=== PATIENT | male | born 1945 | race Caucasian/White ===

== ENCOUNTER → 2017-03-23 | Outpatient (CLI) | payer OTHER ==
[2014-11-12 12:05] VITALS: BP 189/90
--- NOTE | 2017-03-23 13:11 | MRI ---
MRI BRAIN WITHOUT CONTRAST CLINICAL HISTORY: 71-year-old male with unspecified head injury, headache, dizziness and blurred vis ion. COMPARISON: CT head November 12, 2014.. TECHNIQUE: Multiplanar, multisequence MR images of the brain were obtained without contrast. FINDINGS: There is no evidence of diffusion restriction. The craniocervical junction is normal. Pitu itary and optic nerve complex are normal. Multifocal punctate T2 FLAIR signal hyperintensities are p resent within the periventricular and supraventricular white matter that are nonspecific in appearan ce but most likely to represent microvascular white matter ischemic changes. Superimposed upon chron ic microvascular white matter ischemic disease are multiple punctate infarctions involving the right benitez radiata, frontal and parietal lobes within right SYDNEE/MCA distribution with associated macro cystic encephalomalacia and surrounding gliosis. The major vascular flow voids, to include the dural venous sinuses, are intact. The ventricular system is normal in size and morphology. The basilar ci sterns are normal. The orbits and globes are within normal limits. The paranasal sinuses, tympanic cavities and mastoid s are clear. IMPRESSION: 1. No acute ischemic or hemorrhagic insult. 2. Multifocal punctate infarctions with macro cystic encephalomalacia and surrounding gliosis within the right SYDNEE/MCA distribution as described. 3. Chronic microvascular white matter ischemic disease. Reported By:
--- NOTE | 2017-03-23 13:16 | RAD ---
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 No acute fracture or dislocation is seen. No evidence of marginal bony erosions identified. A koko l radial carpal anatomic alignment is seen. There is arterial vascular calcification present. IMPRESSION: Negative for acute abnormality. Reported By:
== END ==
LOC: RAD 12:05
PROVIDERS: ATTEND Nurse Practitioner Family
DX: R42 Dizziness and giddiness (principal); S09.8XXA Other specified injuries of head, initial encounter; X58.XXXA Exposure to other specified factors, initial encounter; M79.642 Pain in left hand
CPT/HCPCS: 70551; 73130

== ENCOUNTER 2017-07-29 11:52 | Inpatient (IN) | payer MEDICAID, OTHER ==
--- NOTE | 2017-07-29 12:03 | DR.GENAD ---
HPI - PCP Primary Care Physician: MARTHA - Complaint/Symptoms Chief Complaint:: PT C/O BEING SICK FOR SEVERAL WEEKS. PT'S HIS SICKNESS STARTED OUT WITH A HIGH FEVER (102.2). PT HAS BEEN HAVING DECREASED INTAKE AND DIZZINESS. - Nurses notes reviewed Nurses Notes Review: Yes - Source History Provided: Patient - Mode of Arrival Mode of Arrival: Ambulatory - Timing Onset of Chief Complaint: 07/15/17 Came on: Gradually - Duration Duration: Constant Duration: Weeks - Severity Severity: Moderate PMH - PMH Past Medical History: Yes Past Medical History: Coronary Artery Disease, CVA, Diabetes, Hypertension Past Surgical History: Yes Surgical History: CABG/Valve Surgery - Family History History of Family Medical Conditions: No - Social History Does any household member use tobacco: Yes Alcohol Use: None Do you use any recreational Drugs:: No Lives With: Family Lives Where: Home - infectious screening In the last 2 months have you had wt loss of >10#?: NO Have you had fever, night sweats or hemotysis?: No Have you traveled outside the country in the last 6 months?: No Isolation: Standard ROS - Review of Systems Constitutional: Fever, Weakness, Fatigue. negative: Chills Eyes: No Symptoms Reported. negative: Eye Pain, Discharge ENTM: No Symptoms Reported. negative: Ear Pain, Nose Discharge, Nose Congestion , Throat Pain Respiratoy: Non-Productive Cough, Short of Breath, Wheezing. negative: Productive Cough, Hemoptysis Cardiovascular: Chest Pain Gastrointestinal/Abdominal: Abdominal Pain, Nausea. negative: Constipation, Diarrhea, Vomiting, Food Intolerance Genitourinary: Other (DECREASE URINE OUTPUT.). negative: Dysuria, Frequency, Hematuria Neurological: Headache, Weakness, Dizziness Musculoskeletal: Back Pain, Muscle Pain Integumentary: No Symptoms Reported Hematologic/Lymphatic: No Symptoms Reported Endocrine: No Symptoms Reported, Increased Thirst All Other Systems: Reviewed and Negative PE - Vital Signs Vitals: Temperature 97.5 F Pulse Rate 85 Respiratory Rate 18 Blood Pressure [Right Arm] 189/90 Blood Pressure 97/57 O2 Sat by Pulse Oximetry 92 - General Limitations: No Limitations General Appearance: Alert - Head Head Exam: Normal Inspection - Eyes Eye exam: Normal Appearance, PERRL - ENT ENT Exam: Normal External Ear Exam External Ear Exam: Normal External Inspection TM/Canal Exam: Bilateral Normal Nose Exam: Normal Nose Exam Mouth Exam: Normal Inspection Throat Exam: Normal Inspection - Neck Neck Exam: Trachea Midline - Chest Chest Inspection: Symmetric Chest Wall Rise - Respiratory Respiratory Exam: Normal Lung Sounds Bilat Respiratory Exam: Bilateral Clear to Auscultation - Cardiovascular Cardiovascular Exam: Regular Rate, Normal Rhythm, Normal Heart Sounds - Abdominal Exam Abdominal Exam: Normal Bowel Sounds, Soft. negative: Tenderness - Extremities Extremities Exam: Normal Inspection, Tenderness - Back Back Exam: Normal Inspection - Neurologic Neurological Exam: Alert, Oriented X3 - Psychiatric Psychiatric Exam: Normal Affect, Normal Mood - Skin Skin Exam: Normal Color MDM - Additional Information Additional Information Obtained From: Family - Differential Diagnosis Differential Diagnosis: ORTHOSTATIC HYPOTENSION, SEVERE DEHYDRATION, HYPONATEMIA , HYPOGLYCEMIA Course - Treatment Treatment: SEE ORDERS. - Consultation Consultation Comments: DISCUSS PATIENT WITH DR. SUNG. HE WILL ADMIT PATIENT. - Education/Counseling Education/Counseling: Patient, Family, Education Educated On: Treatment, Diagnosis, Needs for Follow Up ROR - Labs Reviewed Laboratory Results Reviewed?: Yes Result Diagrams: 07/30/17 03:30 07/30/17 03:30 Laboratory: WBC 5.9 X10^3/uL (3.6-10.0) 07/29/17 12:30 RBC 3.59 X10^6/uL (4.7-6.0) L 07/29/17 12:30 Hgb 10.8 g/dL (13.5-18.0) L 07/29/17 12:30 Hct 31.6 % (42.0-54.0) L 07/29/17 12:30 MCV 88.1 fL (80.0-100.0) 07/29/17 12:30 MCH 30.0 pg (27.0-34.0) 07/29/17 12:30 MCHC 34.1 g/dL (33.0-35.0) 07/29/17 12:30 RDW 15.0 % (11.6-16.5) 07/29/17 12:30 Plt Count 228 X10^3/uL (150.0-450.0) 07/29/17 12:30 MPV 9.7 fL (7.4-11.0) 07/29/17 12:30 Neut % 79.9 % (42.0-75.0) H 07/29/17 12:30 Lymph % 7.4 % (21.0-51.0) L 07/29/17 12:30 [place] % 10.4 % (0.0-13.0) 07/29/17 12:30 Eos % 1.9 % (0.9-2.9) 07/29/17 12:30 Baso % 0.4 % (0.2-1.0) 07/29/17 12:30 Neut # 4.7 x10^3/uL (2.2-4.8) 07/29/17 12:30 Lymph # 0.4 X10^3/uL (1.3-2.9) L 07/29/17 12:30 [place] # 0.6 x10^3/uL (0.3-0.8) 07/29/17 12:30 Eos # 0.1 x10^3/uL (0.0-0.2) 07/29/17 12:30 Baso # 0.0 X10^3/uL (0.0-0.1) 07/29/17 12:30 Absolute Nucleated RBC 0.0 /100WBC 07/29/17 12:30 Sodium 129 mmol/L (136-145) L 07/29/17 12:30 Corrected Sodium TNP 07/29/17 12:30 Potassium 4.1 mmol/L (3.5-5.1) 07/29/17 12:30 Chloride 92 mmol/L (98-107) L 07/29/17 12:30 Carbon Dioxide 23.6 mmol/L (21-32) 07/29/17 12:30 BUN 34 mg/dL (7-18) H 07/29/17 12:30 Creatinine 6.49 mg/dL (0.70-1.30) H 07/29/17 12:30 Est GFR (MDRD) Af Amer 11 (>60) L 07/29/17 12:30 Est GFR (MDRD) Non-Af 9 (>60) L 07/29/17 12:30 Glucose 59 mg/dL (65-99) L 07/29/17 12:30 Lactic Acid 2.6 mmol/L (0.4-2.0) H 07/29/17 12:30 Calcium 9.2 mg/dL (8.5-10.1) 07/29/17 12:30 Corrected Calcium 10.1 mg/dL (8.5-10.1) 07/29/17 12:30 Total Bilirubin 0.80 mg/dL (0.2-1.0) 07/29/17 12:30 AST 32 Units/L (15-37) 07/29/17 12:30 ALT 24 Units/L (12-78) 07/29/17 12:30 Alkaline Phosphatase 61 Units/L (46-116) 07/29/17 12:30 Creatine Kinase 40 Units/L (39-308) 07/29/17 12:30 CK-MB (CK-2) < 1.0 ng/mL (0-4.0) 07/29/17 12:30 CK/CKMB % Calc 2.5 % (<4) 07/29/17 12:30 Troponin I < 0.02 ng/mL (0-1.5) 07/29/17 12:30 Total Protein 7.1 g/dL (6.4-8.2) 07/29/17 12:30 Albumin 2.9 g/dL (3.4-5.0) L 07/29/17 12:30 Globulin 4.2 g/dL (2.5-4.5) 07/29/17 12:30 Albumin/Globulin Ratio 0.7 Ratio (1.1-2.1) L 07/29/17 12:30 Acetone, Semi-Quant Negative (NEGATIVE) 07/29/17 12:31 - XRAY XRAY Interpreted by: Radiologist XRAY Findings: REPORT DISCUSS WITH PATIENT AND HIS . - EKG Rhythm: NSR (EKG NOTED) - Diagnosis Discharge Problem: Hyponatremia, Orthostatic hypotension, Hypoglycemia, Generalized weakness Acute kidney failure Qualifiers: Acute renal failure type: unspecified Qualified Code(s): N17.9 - Acute kidney failure, unspecified - Discharge Plan Disposition: ADMITTED INPATIENT Condition: Stable - Follow ups/Referrals - Instructions
[2017-07-29 12:45] LABS: BASOPHILS % (AUTO) 0.4 % (0.2-1.0); EOSINOPHILS # (AUTO) 0.1 x10^3/uL (0.0-0.2); EOSINOPHILS % (AUTO) 1.9 % (0.9-2.9); HEMATOCRIT 31.6 % (42.0-54.0); HEMOGLOBIN 10.8 g/dL (13.5-18.0); LYMPHOCYTES # (AUTO) 0.4 X10^3/uL (1.3-2.9); LYMPHOCYTES % (AUTO) 7.4 % (21.0-51.0); MEAN CORPUSCULAR HGB CONC 34.1 g/dL (33.0-35.0); MEAN CORPUSCULAR VOLUME 88.1 fL (80.0-100.0); MEAN PLATELET VOLUME 9.7 fL (7.4-11.0); MONOCYTES # (AUTO) 0.6 x10^3/uL (0.3-0.8); MONOCYTES % (AUTO) 10.4 % (0.0-13.0); NEUTROPHILS # (AUTO) 4.7 x10^3/uL (2.2-4.8); NEUTROPHILS % (AUTO) 79.9 % (42.0-75.0); PLATELET COUNT 228 X10^3/uL (150.0-450.0); RED BLOOD COUNT 3.59 X10^6/uL (4.7-6.0); WHITE BLOOD COUNT 5.9 X10^3/uL (3.6-10.0)
[2017-07-29 13:00] LABS: BLOOD UREA NITROGEN 34 mg/dL (7-18); CALCIUM 9.2 mg/dL (8.5-10.1); CARBON DIOXIDE 23.6 mmol/L (21-32); CHLORIDE 92 mmol/L (98-107); CREATININE 6.49 mg/dL (0.70-1.30); SODIUM 129 mmol/L (136-145); TROPONIN I < 0.02 ng/mL (0-1.5); eGFR BLACK RACES 11 (>60); eGFR NON BLACK RACES 9 (>60)
[2017-07-29 13:01] LABS: LACTIC ACID 2.6 mmol/L (0.4-2.0)
[2017-07-29 13:05] LABS: ALANINE AMINOTRANSFERASE 24 Units/L (12-78); ALBUMIN 2.9 g/dL (3.4-5.0); ALKALINE PHOSPHATASE 61 Units/L (46-116); ASPARTATE AMINO TRANSFERASE 32 Units/L (15-37); COR CA(FOR HYPOALB) 10.1 mg/dL (8.5-10.1); CREATINE KINASE 40 Units/L (39-308); CREATINE KINASE MB < 1.0 ng/mL (0-4.0); TOTAL PROTEIN 7.1 g/dL (6.4-8.2)
[2017-07-29] MEDS ORDERED: NS 1000 ML 1,000 ML IV ONE (13:07)
[2017-07-29 13:08] LABS: CKMB % 2.5 % (<4)
[2017-07-29] MEDS ORDERED: NS 1000 ML 1,000 ML ONE ×3 (13:20→23:16)
[2017-07-29] MEDS ORDERED: D50W ABBOJECT SYR ONE (14:00)
[2017-07-29] MEDS ORDERED: D50W ABBOJECT SYR IV ONE (15:03)
--- NOTE | 2017-07-29 16:48 | RAD ---
HISTORY: Fever Study: Single view chest Comparison: 06/30/2011 Findings: Single portable view is submitted. There are chronic sternotomy changes noted. The lungs are clear wi thout consolidation, effusion or pneumothorax. The cardiac and mediastinal contours are within normal limits. The soft tissues are unremarkable. IMPRESSION: 1. No acute cardiopulmonary abnormality. Reported By:
[2017-07-29 17:23] LABS: CREATINE KINASE 33 Units/L (39-308); CREATINE KINASE MB < 1.0 ng/mL (0-4.0); TROPONIN I < 0.02 ng/mL (0-1.5)
--- NOTE | 2017-07-29 21:10 | DR.H&P ---
H&P - History & Physical for Day of: H&P Date: 07/29/17 - Chief Complaint Chief Complaint: WEAKNESS - Allergies Allergies/Adverse Reactions: Allergies Allergy/AdvReac Type Severity Reaction Status Date / Time MS No Known Drug Allergy Allergy Verified 07/18/12 14:03 [No Known Drug Allergy] - History of Present Illness History of Present Illness: THE PATIENT IS A 72YOWM WHO PRESENTS TO THE ED WITH COMPLAINT OF GENERALIZED WEAKNESS. STATES THAT LAST WEEK HE HAD URI SYMPTOMS WITH A TEMP REACHING 102.2F. STATES THAT HE HAS NOT BEEN VOIDING MUCH. STATES THAT HE FEELS TIRED WITH NO ENERGY. DENIES URI OR FEVER NOW. DENIES N/V/D. - Past Medical History Past Medical History: Coronary Artery Disease, CVA, Diabetes, Hypertension - Past Surgical History Surgical History: CABG/Valve Surgery - Social History Does patient currently use any type of tobacco product: No Have you used tobacco products in the last 12 months: No Type of Tobacco Use: None Does any household member use tobacco: Yes Alcohol Use: None Drug Use: None - Review of Systems Constitutional: Fever, Weakness, Malaise Eyes: No Symptoms Reported ENT: No Symptoms Reported Respiratory: No Symptoms Reported Cardiovascular: No Symptoms Reported Gastrointestinal: No Symptoms Reported Genitourinary: Dysuria Musculoskeletal: No Symptoms Reported Skin: No Symptoms Reported Neurological: No Symptoms Reported - Physical Exam Vital Signs: Temperature 97.5 F Pulse Rate 85 Respiratory Rate 18 Blood Pressure [Right Arm] 189/90 Blood Pressure 97/57 O2 Sat by Pulse Oximetry 92 Oriented: Normal Eyes: Normal Ear: Normal Nose: Normal Throat: Normal Respiratory: Clear Throughout Cardiovascular: Normal : Normal Auscultation: Bowel Sounds: Normal Palpation: Normal Tenderness: Normal Skin: Normal Musculoskeletal: Normal Psychiatric: Normal Mood Description: Calm Affect: Normal Speech Pattern: Clear - Assessment/Plan (1) Acute kidney failure Status: Acute Plan: IV HYDRATION. MONITOR BMP. RENAL ULTRASOUND (2) Diabetes mellitus Qualifiers: Diabetes mellitus type: type 2 Status: Acute Plan: FSBS CHECKS WITH SSRI COVERAGE. (3) Hyponatremia Status: Acute Plan: IV HYDRATION (4) Hypertension Qualifiers: Hypertension type: essential hypertension Qualified Code(s): I10 - Essential (primary) hypertension Status: Acute Plan: MONITOR BP. ADMINISTER ANTI-HYPERTENSIVES.
[2017-07-29] MEDS ORDERED: HumuLIN R SUBCUT PRN (21:26)
[2017-07-29] MEDS: FLOMAX PO SCH (21:40)
[2017-07-29 23:27] LABS: CKMB % 2.7 % (<4); CREATINE KINASE 37 Units/L (39-308); CREATINE KINASE MB < 1.0 ng/mL (0-4.0); TROPONIN I 0.02 ng/mL (0-1.5)
[2017-07-29] MEDS: NS 1000 ML 1,000 ML IV SCH (23:40)
[2017-07-30 05:15] LABS: BILIRUBIN,URINE NEGATIVE (NEGATIVE); BLOOD/HEMOGLOBIN,URINE 2+ (NEGATIVE); GLUCOSE, URINE NEGATIVE (NEGATIVE); KETONES,URINE NEGATIVE (NEGATIVE); LEUKOCYTE ESTERASE ,URINE NEGATIVE (NEGATIVE); NITRITES,URINE NEGATIVE (NEGATIVE); PROTEIN,URINE 2+ (NEGATIVE); UROBILINOGEN,URINE NORMAL (NORMAL)
[2017-07-30 05:18] LABS: BASOPHILS % (AUTO) 0.4 % (0.2-1.0); EOSINOPHILS # (AUTO) 0.1 x10^3/uL (0.0-0.2); HEMATOCRIT 26.5 % (42.0-54.0); HEMOGLOBIN 9.2 g/dL (13.5-18.0); LYMPHOCYTES # (AUTO) 0.3 X10^3/uL (1.3-2.9); MEAN CORPUSCULAR HEMOGLOBIN 30.3 pg (27.0-34.0); MEAN CORPUSCULAR HGB CONC 34.7 g/dL (33.0-35.0); MEAN CORPUSCULAR VOLUME 87.3 fL (80.0-100.0); MEAN PLATELET VOLUME 9.9 fL (7.4-11.0); MONOCYTES # (AUTO) 0.6 x10^3/uL (0.3-0.8); MONOCYTES % (AUTO) 11.9 % (0.0-13.0); NEUTROPHILS # (AUTO) 3.8 x10^3/uL (2.2-4.8); NEUTROPHILS % (AUTO) 78.7 % (42.0-75.0); PLATELET COUNT 194 X10^3/uL (150.0-450.0); RED BLOOD COUNT 3.03 X10^6/uL (4.7-6.0); RED CELL DISTRIBUTION WIDTH 14.9 % (11.6-16.5); WHITE BLOOD COUNT 4.8 X10^3/uL (3.6-10.0)
[2017-07-30 05:27] LABS: APPEARANCE,URINE CLEAR (CLEAR); BACTERIA,URINE TRACE /HPF (NEGATIVE); COLOR,URINE YELLOW (YELLOW); RBC,URINE 0-3 /HPF (NEGATIVE); SQUAMOUS EPITHELIAL CELL,UR RARE /HPF (NEGATIVE)
[2017-07-30 05:38] LABS: ALANINE AMINOTRANSFERASE 19 Units/L (12-78); ALBUMIN 2.2 g/dL (3.4-5.0); ALKALINE PHOSPHATASE 49 Units/L (46-116); ASPARTATE AMINO TRANSFERASE 31 Units/L (15-37); BLOOD UREA NITROGEN 36 mg/dL (7-18); CALCIUM 8.4 mg/dL (8.5-10.1); CARBON DIOXIDE 19.7 mmol/L (21-32); CHLORIDE 98 mmol/L (98-107); COR CA(FOR HYPOALB) 9.8 mg/dL (8.5-10.1); CREATININE 7.02 mg/dL (0.70-1.30); SODIUM 131 mmol/L (136-145); TOTAL PROTEIN 5.7 g/dL (6.4-8.2); eGFR BLACK RACES 10 (>60); eGFR NON BLACK RACES 8 (>60)
[2017-07-30] MEDS: NS 1000 ML 1,000 ML IV SCH ×2 (06:00→14:48)
[2017-07-30 09:55] LABS: AMYLASE 72 Units/L (25-115); LIPASE 93 Units/L (73-393)
[2017-07-30] MEDS: MAALOX or MYLANTA PO PRN (11:16)
[2017-07-30] MEDS ORDERED: CONSULT PHARMACY - ANTIBIOTIC XX SCH (13:00)
[2017-07-30 13:07] VITALS: BMI 26.7
[2017-07-30] MEDS ORDERED: XOPENEX 1.25 MG/3 ML NEBULE NEB ONE (13:13)
[2017-07-30] MEDS ORDERED: SALINE 3% 15 ML NEB TX ONE (13:14)
[2017-07-30] MEDS: XOPENEX 1.25 MG/3 ML NEBULE NEB SCH ×3 (13:15→20:36)
[2017-07-30] MEDS ORDERED: SALINE 3% 15 ML NEB TX NEB ONE (13:28)
[2017-07-30] MEDS ORDERED: LEVAQUIN PREMIX IV 500 MG 500 MG/100 ML BAG IV SCH (14:00)
[2017-07-30] MEDS ORDERED: NS 250 ML IV 250 ML IV ONE (14:09)
[2017-07-30] MEDS: ZOSYN VIAL 2.25 GM 2.25 GM in NS 100 ML IV + SPIKE MINIBAG* 100 ML IV SCH ×2 (14:19→22:19)
[2017-07-30] MEDS ORDERED: DULCOLAX SUPPOSITORY 10 MG RECTAL SCH (16:00)
[2017-07-30] MEDS: COLACE CAP 100 MG PO SCH ×2 (16:51→22:18)
[2017-07-30] MEDS: SNACK - Diabetic Appropriate PO SCH (21:15)
[2017-07-30] MEDS: FLOMAX PO SCH (22:19)
[2017-07-30] MEDS: MILK OF MAGNESIA PO SCH (22:20)
[2017-07-31] MEDS: NS 1000 ML 1,000 ML IV SCH ×2 (01:19→09:35)
[2017-07-31 05:23] LABS: BASOPHILS % (AUTO) 0.7 % (0.2-1.0); EOSINOPHILS # (AUTO) 0.1 x10^3/uL (0.0-0.2); EOSINOPHILS % (AUTO) 1.3 % (0.9-2.9); HEMATOCRIT 25.6 % (42.0-54.0); HEMOGLOBIN 8.7 g/dL (13.5-18.0); LYMPHOCYTES # (AUTO) 0.4 X10^3/uL (1.3-2.9); LYMPHOCYTES % (AUTO) 8.9 % (21.0-51.0); MEAN CORPUSCULAR HEMOGLOBIN 29.8 pg (27.0-34.0); MEAN CORPUSCULAR HGB CONC 34.2 g/dL (33.0-35.0); MEAN CORPUSCULAR VOLUME 87.4 fL (80.0-100.0); MONOCYTES # (AUTO) 0.6 x10^3/uL (0.3-0.8); MONOCYTES % (AUTO) 13.9 % (0.0-13.0); NEUTROPHILS # (AUTO) 3.2 x10^3/uL (2.2-4.8); NEUTROPHILS % (AUTO) 75.2 % (42.0-75.0); PLATELET COUNT 188 X10^3/uL (150.0-450.0); RED BLOOD COUNT 2.93 X10^6/uL (4.7-6.0); RED CELL DISTRIBUTION WIDTH 14.7 % (11.6-16.5); WHITE BLOOD COUNT 4.3 X10^3/uL (3.6-10.0)
[2017-07-31 05:30] LABS: ALANINE AMINOTRANSFERASE 16 Units/L (12-78); ALBUMIN 2.1 g/dL (3.4-5.0); ALKALINE PHOSPHATASE 48 Units/L (46-116); ASPARTATE AMINO TRANSFERASE 26 Units/L (15-37); BLOOD UREA NITROGEN 42 mg/dL (7-18); CALCIUM 8.2 mg/dL (8.5-10.1); CHLORIDE 100 mmol/L (98-107); COR CA(FOR HYPOALB) 9.7 mg/dL (8.5-10.1); SODIUM 134 mmol/L (136-145); TOTAL PROTEIN 5.6 g/dL (6.4-8.2); eGFR BLACK RACES 9 (>60); eGFR NON BLACK RACES 7 (>60)
[2017-07-31] MEDS: ZOSYN VIAL 2.25 GM 2.25 GM in NS 100 ML IV + SPIKE MINIBAG* 100 ML IV SCH ×3 (06:05→21:17)
[2017-07-31] MEDS: XOPENEX 1.25 MG/3 ML NEBULE NEB SCH ×4 (09:26→20:54)
[2017-07-31] MEDS: MILK OF MAGNESIA PO SCH ×2 (09:30→20:10)
[2017-07-31] MEDS: MAALOX or MYLANTA PO PRN ×2 (12:15→17:50)
[2017-07-31] MEDS: FLOMAX PO SCH (20:10)
[2017-07-31] MEDS: COLACE CAP 100 MG PO SCH (20:10)
[2017-07-31] MEDS: SNACK - Diabetic Appropriate PO SCH (20:10)
[2017-07-31] MEDS ORDERED: NS 1000 ML 1,000 ML IV PRN (23:40)
[2017-08-01 00:16] LABS: BILIRUBIN,URINE NEGATIVE (NEGATIVE); BLOOD/HEMOGLOBIN,URINE 2+ (NEGATIVE); GLUCOSE, URINE NEGATIVE (NEGATIVE); KETONES,URINE NEGATIVE (NEGATIVE); LEUKOCYTE ESTERASE ,URINE NEGATIVE (NEGATIVE); NITRITES,URINE NEGATIVE (NEGATIVE); PH,URINE 6.5 (5.0 - 8.0); PROTEIN,URINE 1+ (NEGATIVE); UROBILINOGEN,URINE NORMAL (NORMAL)
[2017-08-01 00:22] LABS: APPEARANCE,URINE CLEAR (CLEAR); BACTERIA,URINE NEGATIVE /HPF (NEGATIVE); COLOR,URINE PALE YELLOW (YELLOW); RBC,URINE 0-2 /HPF (NEGATIVE); SQUAMOUS EPITHELIAL CELL,UR RARE /HPF (NEGATIVE)
[2017-08-01 05:16] LABS: BASOPHILS # (AUTO) 0.1 X10^3/uL (0.0-0.1); BASOPHILS % (AUTO) 1.4 % (0.2-1.0); EOSINOPHILS # (AUTO) 0.1 x10^3/uL (0.0-0.2); EOSINOPHILS % (AUTO) 2.8 % (0.9-2.9); HEMATOCRIT 25.4 % (42.0-54.0); HEMOGLOBIN 8.5 g/dL (13.5-18.0); LYMPHOCYTES # (AUTO) 0.5 X10^3/uL (1.3-2.9); MEAN CORPUSCULAR HGB CONC 33.6 g/dL (33.0-35.0); MEAN CORPUSCULAR VOLUME 89.2 fL (80.0-100.0); MEAN PLATELET VOLUME 9.9 fL (7.4-11.0); MONOCYTES # (AUTO) 0.7 x10^3/uL (0.3-0.8); NEUTROPHILS # (AUTO) 2.8 x10^3/uL (2.2-4.8); NEUTROPHILS % (AUTO) 65.8 % (42.0-75.0); PLATELET COUNT 199 X10^3/uL (150.0-450.0); RED BLOOD COUNT 2.85 X10^6/uL (4.7-6.0); RED CELL DISTRIBUTION WIDTH 15.1 % (11.6-16.5); WHITE BLOOD COUNT 4.2 X10^3/uL (3.6-10.0)
[2017-08-01 05:31] LABS: ALANINE AMINOTRANSFERASE 14 Units/L (12-78); ALBUMIN 2.1 g/dL (3.4-5.0); ALKALINE PHOSPHATASE 45 Units/L (46-116); ASPARTATE AMINO TRANSFERASE 24 Units/L (15-37); BLOOD UREA NITROGEN 46 mg/dL (7-18); CALCIUM 8.3 mg/dL (8.5-10.1); CARBON DIOXIDE 22.5 mmol/L (21-32); CHLORIDE 104 mmol/L (98-107); COR CA(FOR HYPOALB) 9.8 mg/dL (8.5-10.1); CREATININE 7.96 mg/dL (0.70-1.30); SODIUM 135 mmol/L (136-145); TOTAL PROTEIN 5.6 g/dL (6.4-8.2); eGFR BLACK RACES 9 (>60); eGFR NON BLACK RACES 7 (>60)
[2017-08-01 08:27] LABS: ALBUMIN 2.1 g/dL (3.4-5.0); BLOOD UREA NITROGEN 47 mg/dL (7-18); CALCIUM 8.2 mg/dL (8.5-10.1); CARBON DIOXIDE 21.4 mmol/L (21-32); CHLORIDE 103 mmol/L (98-107); COR CA(FOR HYPOALB) 9.7 mg/dL (8.5-10.1); CREATININE 8.07 mg/dL (0.70-1.30); PHOSPHORUS 4.2 mg/dL (2.6-4.7); SODIUM 132 mmol/L (136-145); eGFR BLACK RACES 8 (>60); eGFR NON BLACK RACES 7 (>60)
[2017-08-01] MEDS: SYNTHROID 100 mcg TAB PO SCH (08:53)
[2017-08-01] MEDS: PriLOSEC PO SCH (08:53)
[2017-08-01] MEDS: MILK OF MAGNESIA PO SCH ×3 (08:54→20:45)
[2017-08-01] MEDS: XOPENEX 1.25 MG/3 ML NEBULE NEB SCH ×4 (09:11→20:43)
[2017-08-01 10:53] LABS: CALCIUM 8.2 mg/dL (8.5-10.1); CARBON DIOXIDE 24.5 mmol/L (21-32); CREATININE 7.72 mg/dL (0.70-1.30)
[2017-08-01] MEDS: MAALOX or MYLANTA PO PRN (15:00)
[2017-08-01] MEDS: NS 1000 ML 1,000 ML IV PRN (19:00)
[2017-08-01 20:18] LABS: BLOOD UREA NITROGEN 43 mg/dL (7-18); CALCIUM 8.2 mg/dL (8.5-10.1); CHLORIDE 102 mmol/L (98-107); CREATININE 7.47 mg/dL (0.70-1.30); SODIUM 134 mmol/L (136-145); eGFR BLACK RACES 9 (>60); eGFR NON BLACK RACES 8 (>60)
[2017-08-01] MEDS: SNACK - Diabetic Appropriate PO SCH (20:45)
[2017-08-01] MEDS: COLACE CAP 100 MG PO SCH (20:45)
[2017-08-01] MEDS: FLOMAX PO SCH (20:45)
[2017-08-02 05:17] LABS: BASOPHILS % (AUTO) 1.2 % (0.2-1.0); EOSINOPHILS # (AUTO) 0.2 x10^3/uL (0.0-0.2); HEMATOCRIT 24.8 % (42.0-54.0); HEMOGLOBIN 8.4 g/dL (13.5-18.0); LYMPHOCYTES # (AUTO) 0.5 X10^3/uL (1.3-2.9); LYMPHOCYTES % (AUTO) 13.7 % (21.0-51.0); MEAN CORPUSCULAR HEMOGLOBIN 29.9 pg (27.0-34.0); MEAN CORPUSCULAR HGB CONC 33.8 g/dL (33.0-35.0); MEAN CORPUSCULAR VOLUME 88.5 fL (80.0-100.0); MEAN PLATELET VOLUME 9.6 fL (7.4-11.0); MONOCYTES # (AUTO) 0.6 x10^3/uL (0.3-0.8); MONOCYTES % (AUTO) 16.8 % (0.0-13.0); NEUTROPHILS # (AUTO) 2.4 x10^3/uL (2.2-4.8); NEUTROPHILS % (AUTO) 62.3 % (42.0-75.0); PLATELET COUNT 199 X10^3/uL (150.0-450.0); RED BLOOD COUNT 2.81 X10^6/uL (4.7-6.0); RED CELL DISTRIBUTION WIDTH 15.2 % (11.6-16.5); WHITE BLOOD COUNT 3.8 X10^3/uL (3.6-10.0)
[2017-08-02 05:27] LABS: ALANINE AMINOTRANSFERASE 17 Units/L (12-78); ALKALINE PHOSPHATASE 49 Units/L (46-116); ASPARTATE AMINO TRANSFERASE 25 Units/L (15-37); BLOOD UREA NITROGEN 44 mg/dL (7-18); CALCIUM 8.3 mg/dL (8.5-10.1); CHLORIDE 104 mmol/L (98-107); COR CA(FOR HYPOALB) 9.9 mg/dL (8.5-10.1); CREATININE 7.22 mg/dL (0.70-1.30); SODIUM 135 mmol/L (136-145); TOTAL PROTEIN 5.5 g/dL (6.4-8.2); eGFR BLACK RACES 10 (>60); eGFR NON BLACK RACES 8 (>60)
[2017-08-02] MEDS: NS 1000 ML 1,000 ML IV PRN (05:41)
[2017-08-02] MEDS: XOPENEX 1.25 MG/3 ML NEBULE NEB SCH ×5 (08:40→20:02)
[2017-08-02] MEDS: SYNTHROID 100 mcg TAB PO SCH (09:46)
[2017-08-02] MEDS: PriLOSEC PO SCH (09:46)
[2017-08-02] MEDS: MILK OF MAGNESIA PO SCH ×2 (09:47→21:15)
[2017-08-02 16:19] LABS: CALCIUM 8.6 mg/dL (8.5-10.1); CARBON DIOXIDE 22.5 mmol/L (21-32); CREATININE 6.93 mg/dL (0.70-1.30)
[2017-08-02] MEDS: SNACK - Diabetic Appropriate PO SCH (21:13)
[2017-08-02] MEDS: COLACE CAP 100 MG PO SCH (21:14)
[2017-08-02] MEDS: FLOMAX PO SCH (21:14)
[2017-08-02] MEDS: PEPCID 20 MG IV PREMIX* 20 MG/50 ML BAG IV SCH (21:16)
[2017-08-03] MEDS: NS 1000 ML 1,000 ML IV PRN ×2 (01:07→16:25)
[2017-08-03 05:43] LABS: BASOPHILS % (AUTO) 1.4 % (0.2-1.0); EOSINOPHILS # (AUTO) 0.2 x10^3/uL (0.0-0.2); HEMATOCRIT 23.6 % (42.0-54.0); LYMPHOCYTES # (AUTO) 0.5 X10^3/uL (1.3-2.9); LYMPHOCYTES % (AUTO) 15.8 % (21.0-51.0); MEAN CORPUSCULAR HEMOGLOBIN 30.2 pg (27.0-34.0); MEAN CORPUSCULAR HGB CONC 34.1 g/dL (33.0-35.0); MEAN CORPUSCULAR VOLUME 88.6 fL (80.0-100.0); MEAN PLATELET VOLUME 9.6 fL (7.4-11.0); MONOCYTES # (AUTO) 0.5 x10^3/uL (0.3-0.8); MONOCYTES % (AUTO) 16.5 % (0.0-13.0); NEUTROPHILS # (AUTO) 1.9 x10^3/uL (2.2-4.8); NEUTROPHILS % (AUTO) 59.3 % (42.0-75.0); PLATELET COUNT 215 X10^3/uL (150.0-450.0); RED BLOOD COUNT 2.66 X10^6/uL (4.7-6.0); RED CELL DISTRIBUTION WIDTH 15.4 % (11.6-16.5); WHITE BLOOD COUNT 3.2 X10^3/uL (3.6-10.0)
--- NOTE | 2017-08-03 06:08 | RAD ---
HISTORY: Hypertension, coronary artery disease, fever Study: Chest AP portable Comparison: 07/29/2017 Findings: The patient is status post median sternotomy and CABG. The heart is enlarged. No congestive heart nishant lure is noted. The lungs are mildly hyperinflated but free of acute alveolar infiltrates. No pleural effusions are identified. A nodular density projected over the right lung base is likely a nipple sha harvinder. Confirmation with repeat AP upright film with nipple markers is recommended. IMPRESSION: Cardiomegaly without congestive heart failure Hyperinflation Nodular density projected over the right lower lobe is likely a nipple shadow. Repeat AP or PA film w ith nipple markers is recommended for confirmation. Reported By:
[2017-08-03 06:11] LABS: ALANINE AMINOTRANSFERASE 17 Units/L (12-78); ALBUMIN 2.1 g/dL (3.4-5.0); ALKALINE PHOSPHATASE 49 Units/L (46-116); ASPARTATE AMINO TRANSFERASE 25 Units/L (15-37); BLOOD UREA NITROGEN 42 mg/dL (7-18); CALCIUM 8.4 mg/dL (8.5-10.1); CARBON DIOXIDE 23.1 mmol/L (21-32); CHLORIDE 108 mmol/L (98-107); COR CA(FOR HYPOALB) 9.9 mg/dL (8.5-10.1); CREATININE 6.69 mg/dL (0.70-1.30); SODIUM 139 mmol/L (136-145); TOTAL PROTEIN 5.7 g/dL (6.4-8.2); eGFR BLACK RACES 11 (>60); eGFR NON BLACK RACES 9 (>60)
[2017-08-03] MEDS: XOPENEX 1.25 MG/3 ML NEBULE NEB SCH ×3 (09:10→20:34)
[2017-08-03] MEDS: MILK OF MAGNESIA PO SCH ×2 (09:24→21:23)
[2017-08-03] MEDS: PriLOSEC PO SCH (09:24)
[2017-08-03] MEDS: SYNTHROID 100 mcg TAB PO SCH (09:24)
[2017-08-03] MEDS ORDERED: HYDROCORTISONE CRM 1% TOP PRN (09:39)
[2017-08-03] MEDS: NORCO 10/325 TAB PO PRN (21:22)
[2017-08-03] MEDS: COLACE CAP 100 MG PO SCH (21:23)
[2017-08-03] MEDS: FLOMAX PO SCH (21:23)
[2017-08-03] MEDS: SNACK - Diabetic Appropriate PO SCH (21:24)
[2017-08-04] MEDS: NS 1000 ML 1,000 ML IV PRN (05:20)
[2017-08-04 06:04] LABS: BASOPHILS # (AUTO) 0.1 X10^3/uL (0.0-0.1); BASOPHILS % (AUTO) 1.9 % (0.2-1.0); EOSINOPHILS # (AUTO) 0.3 x10^3/uL (0.0-0.2); EOSINOPHILS % (AUTO) 8.3 % (0.9-2.9); HEMATOCRIT 22.9 % (42.0-54.0); HEMOGLOBIN 7.8 g/dL (13.5-18.0); LYMPHOCYTES # (AUTO) 0.6 X10^3/uL (1.3-2.9); LYMPHOCYTES % (AUTO) 19.2 % (21.0-51.0); MEAN CORPUSCULAR HEMOGLOBIN 29.9 pg (27.0-34.0); MEAN CORPUSCULAR VOLUME 88.1 fL (80.0-100.0); MEAN PLATELET VOLUME 9.4 fL (7.4-11.0); MONOCYTES # (AUTO) 0.5 x10^3/uL (0.3-0.8); MONOCYTES % (AUTO) 15.8 % (0.0-13.0); NEUTROPHILS # (AUTO) 1.7 x10^3/uL (2.2-4.8); NEUTROPHILS % (AUTO) 54.8 % (42.0-75.0); PLATELET COUNT 235 X10^3/uL (150.0-450.0); RED BLOOD COUNT 2.61 X10^6/uL (4.7-6.0); WHITE BLOOD COUNT 3.1 X10^3/uL (3.6-10.0)
[2017-08-04 06:30] LABS: ALANINE AMINOTRANSFERASE 19 Units/L (12-78); ALBUMIN 2.2 g/dL (3.4-5.0); ALKALINE PHOSPHATASE 51 Units/L (46-116); ASPARTATE AMINO TRANSFERASE 28 Units/L (15-37); BLOOD UREA NITROGEN 42 mg/dL (7-18); CALCIUM 8.6 mg/dL (8.5-10.1); CHLORIDE 108 mmol/L (98-107); CREATININE 5.78 mg/dL (0.70-1.30); SODIUM 141 mmol/L (136-145); TOTAL PROTEIN 5.9 g/dL (6.4-8.2); eGFR BLACK RACES 12 (>60); eGFR NON BLACK RACES 10 (>60)
[2017-08-04 06:33] LABS: HYPOCHROMASIA 1+; MICROCYTOSIS 1+; PLATELET MORPHOLOGY COMMENT NORMAL (NORMAL); POIKILOCYTOSIS SLIGHT
[2017-08-04] MEDS: SYNTHROID 100 mcg TAB PO SCH (08:06)
[2017-08-04] MEDS: MILK OF MAGNESIA PO SCH ×2 (08:06→20:18)
[2017-08-04] MEDS: PriLOSEC PO SCH (08:06)
[2017-08-04] MEDS: XOPENEX 1.25 MG/3 ML NEBULE NEB SCH ×4 (09:09→20:25)
[2017-08-04] MEDS ORDERED: BENADRYL INJ 50 MG VIAL IVP PRN (13:22)
[2017-08-04] MEDS ORDERED: NS 500 ML IV 500 ML IV ONE (13:22)
[2017-08-04] MEDS ORDERED: TYLENOL 325 MG TAB PO PRN (13:22)
[2017-08-04 14:37] LABS: HEMATOCRIT 24.9 % (42.0-54.0); HEMOGLOBIN 8.4 g/dL (13.5-18.0)
[2017-08-04] MEDS: PROTONIX INJ 40 MG VIAL IVP SCH ×2 (15:39→20:09)
[2017-08-04] MEDS: NS 1000 ML 1,000 ML with SODIUM BICARBONATE 8.4% INJ ADULT 50 ML IV PRN ×2 (18:40)
[2017-08-04 19:22] LABS: HEMATOCRIT 24.2 % (42.0-54.0); HEMOGLOBIN 8.1 g/dL (13.5-18.0)
[2017-08-04] MEDS: COLACE CAP 100 MG PO SCH (20:07)
[2017-08-04] MEDS: FLOMAX PO SCH (20:07)
[2017-08-04] MEDS: SNACK - Diabetic Appropriate PO SCH (20:07)
[2017-08-04] MEDS: PEPCID 20 MG IV PREMIX* 20 MG/50 ML BAG IV SCH (20:09)
[2017-08-04] MEDS: NORCO 10/325 TAB PO PRN (23:42)
[2017-08-05 01:38] LABS: HEMATOCRIT 23.6 % (42.0-54.0); HEMOGLOBIN 7.9 g/dL (13.5-18.0)
[2017-08-05 05:08] LABS: BASOPHILS # (AUTO) 0.1 X10^3/uL (0.0-0.1); BASOPHILS % (AUTO) 1.9 % (0.2-1.0); EOSINOPHILS # (AUTO) 0.2 x10^3/uL (0.0-0.2); EOSINOPHILS % (AUTO) 7.6 % (0.9-2.9); HEMATOCRIT 23.9 % (42.0-54.0); HEMOGLOBIN 8.1 g/dL (13.5-18.0); LYMPHOCYTES # (AUTO) 0.6 X10^3/uL (1.3-2.9); MEAN CORPUSCULAR HEMOGLOBIN 30.1 pg (27.0-34.0); MEAN CORPUSCULAR VOLUME 88.5 fL (80.0-100.0); MONOCYTES # (AUTO) 0.5 x10^3/uL (0.3-0.8); MONOCYTES % (AUTO) 15.1 % (0.0-13.0); NEUTROPHILS # (AUTO) 1.8 x10^3/uL (2.2-4.8); NEUTROPHILS % (AUTO) 56.4 % (42.0-75.0); PLATELET COUNT 247 X10^3/uL (150.0-450.0); RED BLOOD COUNT 2.71 X10^6/uL (4.7-6.0); RED CELL DISTRIBUTION WIDTH 15.4 % (11.6-16.5); WHITE BLOOD COUNT 3.2 X10^3/uL (3.6-10.0)
[2017-08-05 05:24] LABS: ALBUMIN 2.2 g/dL (3.4-5.0); CALCIUM 8.5 mg/dL (8.5-10.1); COR CA(FOR HYPOALB) 9.9 mg/dL (8.5-10.1); CREATININE 5.06 mg/dL (0.70-1.30)
[2017-08-05 05:33] LABS: HYPOCHROMASIA 1+; MICROCYTOSIS 1+; PLATELET MORPHOLOGY COMMENT NORMAL (NORMAL)
--- NOTE | 2017-08-05 07:09 | RAD ---
HISTORY: Shortness of breath Study: Single-view chest Comparison: 07/29/2017 Findings: The trachea is midline. The cardiac silhouette is accentuated by portable technique. Prior changes o f median sternotomy and CABG are noted. The lungs are clear without focal infiltrate or effusion. T he bony thorax is unremarkable. IMPRESSION: 1. No acute cardiopulmonary disease. Reported By:
[2017-08-05] MEDS: MILK OF MAGNESIA PO SCH ×2 (08:17→20:56)
[2017-08-05] MEDS: PROTONIX INJ 40 MG VIAL IVP SCH ×2 (08:18→21:27)
[2017-08-05] MEDS: SYNTHROID 100 mcg TAB PO SCH (08:18)
[2017-08-05] MEDS: XOPENEX 1.25 MG/3 ML NEBULE NEB SCH ×4 (08:44→20:12)
[2017-08-05] MEDS ORDERED: NS 500 ML IV 500 ML IV ONE (14:00)
[2017-08-05] MEDS ORDERED: NS 1000 ML 1,000 ML ONE ×2 (14:43→23:29)
[2017-08-05] MEDS: ALBUMIN HUMAN 25%- 100ML 100 ML IV SCH (15:43)
--- NOTE | 2017-08-05 18:46 | PCM.PROG ---
Progress Note - Progress Note for Day of Date: 08/04/17 ( ) - Subjective Subjective: IS A PATIENT OF . HE WAS ADMITTED FOR SEVERE DEHYDRATION, HYPONATREMIA, AND GENERALIZED WEAKNESS. TODAY, HE IS ALERT AND ORIENTED, SITTING UP IN BED ON MORNING ROUNDS. HE CONTINUES WITH COMPLAINTS OF WEAKNESS AND DIFFUSE ABDOMINAL PAIN. ON EXAMINATION, LUNGS WERE CLEAR TO AUSCULTATION. ABDOMEN SOFT, ROUND, AND NON-TENDER WITH NORMAL BOWEL SOUNDS NOTED IN ALL QUADRANTS. HIS VITAL SIGNS THIS MORNING ARE 98.1-88-93%-20-154/68. LABS WERE OBTAINED. ABNORMAL LAB VALUES INCLUDE THE FOLLOWING: WBC 3.1, RBC 2.61 , HGB 7.8, HCT 22.9, CHLORIDE 108, BUN 42, CREATININE 5.78, TOTAL PROTIEN 5.9, ALBUMIN 2.2. TODAY, WE WILL ADD 1 AMP BICARB TO EACH LITER OF IVF FOR ARF, CHECK A H&H Q6H AND TRANSFUSE 2 UNITS PRBC IF HGB FALLS BELOW 7, AND OBTAIN A CHEST XRAY IN THE MORNING. OTHERWISE, WE PLAN TO FOLLOW UP WITH AM LABS AND CONTINUE TO MONITOR PATIENT. - Past Medical Family Social History Past Med/Fam/Surg Hx: No changes since H&P Allergies: Allergies No Known Drug Allergies Allergy (Verified 07/29/17 21:09) - Review of Systems ROS: No change since H&P - Vital Signs and I&O's Vital Signs: Temperature 98.4 F Pulse Rate [Right Brachial] 74 Pulse Rate [Left Radial] 80 Pulse Rate 71 Respiratory Rate 20 Blood Pressure [Left Arm] 167/7 Blood Pressure [Right Arm] 162/68 Blood Pressure 97/57 O2 Sat by Pulse Oximetry 92 Intake and Output: Intake & Output 08/03/17 08/04/17 08/05/17 08/06/17 11:59 11:59 11:59 11:59 Intake Total 4440 2595 2400 1710 Output Total 3725 3400 7595 1900 Balance 715 -805 -2075 -190 - Physical Exam Oriented: Normal Eyes: Normal Ear: Normal Nose: Normal Throat: Normal Cardiovascular: Normal : Normal Auscultation: Bowel Sounds: Normal Palpation: Normal Tenderness: Diffuse Skin: Normal Musculoskeletal: Normal Psychiatric: Normal Mood Description: Calm Affect: Normal Speech Pattern: Clear, Appropriate - Laboratory and Diagnostics Result Diagrams: 08/05/17 03:45 08/05/17 03:45 Labs: 07/29/17 12:35 Blood Blood Culture - Final 07/29/17 12:30 Blood Blood Culture - Final 07/30/17 14:03 Sputum - Expectorated Sputum Sputum Culture - Final 07/30/17 14:03 Sputum - Expectorated Sputum - Final Laboratory WBC 3.2 X10^3/uL (3.6-10.0) L 08/05/17 03:45 RBC 2.71 X10^6/uL (4.7-6.0) L 08/05/17 03:45 Hgb 8.1 g/dL (13.5-18.0) L 08/05/17 03:45 Hct 23.9 % (42.0-54.0) L 08/05/17 03:45 MCV 88.5 fL (80.0-100.0) 08/05/17 03:45 MCH 30.1 pg (27.0-34.0) 08/05/17 03:45 MCHC 34.0 g/dL (33.0-35.0) 08/05/17 03:45 RDW 15.4 % (11.6-16.5) 08/05/17 03:45 Plt Count 247 X10^3/uL (150.0-450.0) 08/05/17 03:45 Plt Count Comment Adequate (ADEQUATE) 08/05/17 03:45 MPV 9.0 fL (7.4-11.0) 08/05/17 03:45 Neut % 56.4 % (42.0-75.0) 08/05/17 03:45 Lymph % 19.0 % (21.0-51.0) L 08/05/17 03:45 [place] % 15.1 % (0.0-13.0) H 08/05/17 03:45 Eos % 7.6 % (0.9-2.9) H 08/05/17 03:45 Baso % 1.9 % (0.2-1.0) H 08/05/17 03:45 Neut # 1.8 x10^3/uL (2.2-4.8) L 08/05/17 03:45 Lymph # 0.6 X10^3/uL (1.3-2.9) L 08/05/17 03:45 [place] # 0.5 x10^3/uL (0.3-0.8) 08/05/17 03:45 Eos # 0.2 x10^3/uL (0.0-0.2) 08/05/17 03:45 Baso # 0.1 X10^3/uL (0.0-0.1) 08/05/17 03:45 Absolute Nucleated RBC 0.1 /100WBC 08/05/17 03:45 Plt Morphology Comment Normal (NORMAL) 08/05/17 03:45 RBC Morphology Abnormal (NORMAL) 08/05/17 03:45 Hypochromasia 1+ A 08/05/17 03:45 Poikilocytosis Slight A 08/04/17 03:30 Microcytosis 1+ A 08/05/17 03:45 Sodium 141 mmol/L (136-145) 08/05/17 03:45 Corrected Sodium 141 mmol/L (136-145) 08/05/17 03:45 Potassium 4.8 mmol/L (3.5-5.1) 08/05/17 03:45 Chloride 108 mmol/L (98-107) H 08/05/17 03:45 Carbon Dioxide 24.0 mmol/L (21-32) 08/05/17 03:45 BUN 42 mg/dL (7-18) H 08/05/17 03:45 Creatinine 5.06 mg/dL (0.70-1.30) H 08/05/17 03:45 Est GFR (MDRD) Af Amer 15 (>60) L 08/05/17 03:45 Est GFR (MDRD) Non-Af 12 (>60) L 08/05/17 03:45 Glucose 119 mg/dL (65-99) H 08/05/17 03:45 POC Glucose (mg/dL) 113 mg/dL (65-99) H 08/05/17 17:00 Lactic Acid 2.6 mmol/L (0.4-2.0) H 07/29/17 12:30 Uric Acid 7.9 mg/dL (3.5-7.2) H 08/01/17 03:50 Calcium 8.5 mg/dL (8.5-10.1) 08/05/17 03:45 Corrected Calcium 9.9 mg/dL (8.5-10.1) 08/05/17 03:45 Phosphorus 4.2 mg/dL (2.6-4.7) 08/01/17 03:50 Total Bilirubin 0.40 mg/dL (0.2-1.0) 08/05/17 03:45 AST 27 Units/L (15-37) 08/05/17 03:45 ALT 22 Units/L (12-78) 08/05/17 03:45 Alkaline Phosphatase 51 Units/L (46-116) 08/05/17 03:45 Creatine Kinase 37 Units/L (39-308) L 07/29/17 22:55 CK-MB (CK-2) < 1.0 ng/mL (0-4.0) 07/29/17 22:55 CK/CKMB % Calc 2.7 % (<4) 07/29/17 22:55 Troponin I 0.02 ng/mL (0-1.5) 07/29/17 22:55 Total Protein 6.0 g/dL (6.4-8.2) L 08/05/17 03:45 Albumin 2.2 g/dL (3.4-5.0) L 08/05/17 03:45 Globulin 3.8 g/dL (2.5-4.5) 08/05/17 03:45 Albumin/Globulin Ratio 0.6 Ratio (1.1-2.1) L 08/05/17 03:45 Prealbumin 14.1 mg/dL (18-35.7) L 07/30/17 03:30 Amylase 72 Units/L (25-115) 07/30/17 03:30 Lipase 93 Units/L (73-393) 07/30/17 03:30 Specimen Type Catherized urine 07/31/17 23:58 Urine Color Pale yellow (YELLOW) 07/31/17 23:58 Urine Appearance Clear (CLEAR) 07/31/17 23:58 Urine pH 6.5 (5.0 - 8.0) 07/31/17 23:58 Ur Specific [place] 1.010 (1.000-1.030) 07/31/17 23:58 Urine Protein 1+ (NEGATIVE) 07/31/17 23:58 Urine Glucose (UA) Negative (NEGATIVE) 07/31/17 23:58 Urine Ketones Negative (NEGATIVE) 07/31/17 23:58 Urine Occult Blood 2+ (NEGATIVE) 07/31/17 23:58 Urine Nitrite Negative (NEGATIVE) 07/31/17 23:58 Urine Bilirubin Negative (NEGATIVE) 07/31/17 23:58 Urine Urobilinogen Normal (NORMAL) 07/31/17 23:58 Ur Leukocyte Esterase Negative (NEGATIVE) 07/31/17 23:58 Urine RBC 0-2 /HPF (NEGATIVE) 07/31/17 23:58 Urine WBC None seen /HPF (NEGATIVE) 07/31/17 23:58 Ur Squamous Epith Cells Rare /HPF (NEGATIVE) 07/31/17 23:58 Urine Bacteria Negative /HPF (NEGATIVE) 07/31/17 23:58 Ur Culture Indicated? No/not indicated 07/31/17 23:58 Acetone, Semi-Quant Negative (NEGATIVE) 07/29/17 12:31 Influenza Type A (PCR) Negative (NEGATIVE) 07/30/17 11:34 Influenza Type B (PCR) Negative (NEGATIVE) 07/30/17 11:34 - Plan (1) Acute kidney failure Status: Acute Qualifiers: Acute renal failure type: unspecified Qualified Code(s): N17.9 - Acute kidney failure, unspecified Plan: IV HYDRATION WITH 1 AMP BICARB TO EACH LITER OF FLUID, CONTINUE TO MONITOR LABS. (2) Generalized weakness Status: Acute Plan: CONTINUE TO HYDRATE, CONTINUE TO MONITOR (3) Anemia Status: Acute Qualifiers: Anemia type: unspecified type Qualified Code(s): D64.9 - Anemia, unspecified Plan: MONITOR H&H, TRANSFUSE PRBC IF HGB FALLS BELOW 7
--- NOTE | 2017-08-05 19:49 | PCM.PROG ---
Progress Note - Progress Note for Day of Date: 08/05/17 - Subjective Subjective: IS A PATIENT OF . HE WAS ADMITTED FOR SEVERE DEHYDRATION, HYPONATREMIA, AND GENERALIZED WEAKNESS. TODAY, HE IS ALERT AND ORIENTED, SITTING UP IN BED ON MORNING ROUNDS. HE CONTINUES WITH COMPLAINTS OF WEAKNESS, BUT REPORTS IMPROVEMENT SINCE YESTERDAY. ON EXAMINATION, LUNGS WERE CLEAR TO AUSCULTATION. ABDOMEN SOFT, ROUND, AND NON-TENDER WITH NORMAL BOWEL SOUNDS NOTED IN ALL QUADRANTS. HIS VITAL SIGNS THIS MORNING ARE 98.4-75-20-93%- 159/70. LABS WERE OBTAINED. ABNORMAL LAB VALUES INCLUDE THE FOLLOWING: WBC 3.2, RBC 2.71, HGB 8.1, HCT 22.9, CHLORIDE 108, BUN 42, CREATININE 5.06, GLUCOSE 119 , TOTAL PROTIEN 6.0, ALBUMIN 2.2. TODAY, WE WILL CONTINUE WITH BICARB IN FLUIDS. WE WILL BOLUS 500ML NS, INCREASE IV ROLANDA 125ML/HR AFTER BOLUS, AND START ALBUMIN 25% IV DAILY. OTHERWISE, WE PLAN TO FOLLOW UP WITH AM LABS AND CONTINUE TO MONITOR PATIENT. - Past Medical Family Social History Past Med/Fam/Surg Hx: No changes since H&P Allergies: Allergies No Known Drug Allergies Allergy (Verified 07/29/17 21:09) - Review of Systems ROS: No change since H&P - Vital Signs and I&O's Vital Signs: Temperature 98.4 F Pulse Rate [Right Brachial] 74 Pulse Rate [Left Radial] 80 Pulse Rate 71 Respiratory Rate 20 Blood Pressure [Left Arm] 167/7 Blood Pressure [Right Arm] 162/68 Blood Pressure 97/57 O2 Sat by Pulse Oximetry 92 Intake and Output: Intake & Output 08/03/17 08/04/17 08/05/17 08/06/17 11:59 11:59 11:59 11:59 Intake Total 4440 2595 2400 1710 Output Total 3725 3400 2865 1900 Balance 715 -805 -2075 -190 - Physical Exam Oriented: Normal Eyes: Normal Ear: Normal Nose: Normal Throat: Normal Respiratory: Normal Cardiovascular: Normal : Normal Auscultation: Bowel Sounds: Normal Palpation: Normal Tenderness: Diffuse Skin: Normal Musculoskeletal: Normal Psychiatric: Normal Mood Description: Calm Affect: Normal Speech Pattern: Clear, Appropriate - Laboratory and Diagnostics Result Diagrams: 08/05/17 03:45 08/05/17 03:45 Labs: 07/29/17 12:35 Blood Blood Culture - Final 07/29/17 12:30 Blood Blood Culture - Final 07/30/17 14:03 Sputum - Expectorated Sputum Sputum Culture - Final 07/30/17 14:03 Sputum - Expectorated Sputum - Final Laboratory WBC 3.2 X10^3/uL (3.6-10.0) L 08/05/17 03:45 RBC 2.71 X10^6/uL (4.7-6.0) L 08/05/17 03:45 Hgb 8.1 g/dL (13.5-18.0) L 08/05/17 03:45 Hct 23.9 % (42.0-54.0) L 08/05/17 03:45 MCV 88.5 fL (80.0-100.0) 08/05/17 03:45 MCH 30.1 pg (27.0-34.0) 08/05/17 03:45 MCHC 34.0 g/dL (33.0-35.0) 08/05/17 03:45 RDW 15.4 % (11.6-16.5) 08/05/17 03:45 Plt Count 247 X10^3/uL (150.0-450.0) 08/05/17 03:45 Plt Count Comment Adequate (ADEQUATE) 08/05/17 03:45 MPV 9.0 fL (7.4-11.0) 08/05/17 03:45 Neut % 56.4 % (42.0-75.0) 08/05/17 03:45 Lymph % 19.0 % (21.0-51.0) L 08/05/17 03:45 Yell % 15.1 % (0.0-13.0) H 08/05/17 03:45 Eos % 7.6 % (0.9-2.9) H 08/05/17 03:45 Baso % 1.9 % (0.2-1.0) H 08/05/17 03:45 Neut # 1.8 x10^3/uL (2.2-4.8) L 08/05/17 03:45 Lymph # 0.6 X10^3/uL (1.3-2.9) L 08/05/17 03:45 Yell # 0.5 x10^3/uL (0.3-0.8) 08/05/17 03:45 Eos # 0.2 x10^3/uL (0.0-0.2) 08/05/17 03:45 Baso # 0.1 X10^3/uL (0.0-0.1) 08/05/17 03:45 Absolute Nucleated RBC 0.1 /100WBC 08/05/17 03:45 Plt Morphology Comment Normal (NORMAL) 08/05/17 03:45 RBC Morphology Abnormal (NORMAL) 08/05/17 03:45 Hypochromasia 1+ A 08/05/17 03:45 Poikilocytosis Slight A 08/04/17 03:30 Microcytosis 1+ A 08/05/17 03:45 Sodium 141 mmol/L (136-145) 08/05/17 03:45 Corrected Sodium 141 mmol/L (136-145) 08/05/17 03:45 Potassium 4.8 mmol/L (3.5-5.1) 08/05/17 03:45 Chloride 108 mmol/L (98-107) H 08/05/17 03:45 Carbon Dioxide 24.0 mmol/L (21-32) 08/05/17 03:45 BUN 42 mg/dL (7-18) H 08/05/17 03:45 Creatinine 5.06 mg/dL (0.70-1.30) H 08/05/17 03:45 Est GFR (MDRD) Af Amer 15 (>60) L 08/05/17 03:45 Est GFR (MDRD) Non-Af 12 (>60) L 08/05/17 03:45 Glucose 119 mg/dL (65-99) H 08/05/17 03:45 POC Glucose (mg/dL) 113 mg/dL (65-99) H 08/05/17 17:00 Lactic Acid 2.6 mmol/L (0.4-2.0) H 07/29/17 12:30 Uric Acid 7.9 mg/dL (3.5-7.2) H 08/01/17 03:50 Calcium 8.5 mg/dL (8.5-10.1) 08/05/17 03:45 Corrected Calcium 9.9 mg/dL (8.5-10.1) 08/05/17 03:45 Phosphorus 4.2 mg/dL (2.6-4.7) 08/01/17 03:50 Total Bilirubin 0.40 mg/dL (0.2-1.0) 08/05/17 03:45 AST 27 Units/L (15-37) 08/05/17 03:45 ALT 22 Units/L (12-78) 08/05/17 03:45 Alkaline Phosphatase 51 Units/L (46-116) 08/05/17 03:45 Creatine Kinase 37 Units/L (39-308) L 07/29/17 22:55 CK-MB (CK-2) < 1.0 ng/mL (0-4.0) 07/29/17 22:55 CK/CKMB % Calc 2.7 % (<4) 07/29/17 22:55 Troponin I 0.02 ng/mL (0-1.5) 07/29/17 22:55 Total Protein 6.0 g/dL (6.4-8.2) L 08/05/17 03:45 Albumin 2.2 g/dL (3.4-5.0) L 08/05/17 03:45 Globulin 3.8 g/dL (2.5-4.5) 08/05/17 03:45 Albumin/Globulin Ratio 0.6 Ratio (1.1-2.1) L 08/05/17 03:45 Prealbumin 14.1 mg/dL (18-35.7) L 07/30/17 03:30 Amylase 72 Units/L (25-115) 07/30/17 03:30 Lipase 93 Units/L (73-393) 07/30/17 03:30 Specimen Type Catherized urine 07/31/17 23:58 Urine Color Pale yellow (YELLOW) 07/31/17 23:58 Urine Appearance Clear (CLEAR) 07/31/17 23:58 Urine pH 6.5 (5.0 - 8.0) 07/31/17 23:58 Ur Specific [place] 1.010 (1.000-1.030) 07/31/17 23:58 Urine Protein 1+ (NEGATIVE) 07/31/17 23:58 Urine Glucose (UA) Negative (NEGATIVE) 07/31/17 23:58 Urine Ketones Negative (NEGATIVE) 07/31/17 23:58 Urine Occult Blood 2+ (NEGATIVE) 07/31/17 23:58 Urine Nitrite Negative (NEGATIVE) 07/31/17 23:58 Urine Bilirubin Negative (NEGATIVE) 07/31/17 23:58 Urine Urobilinogen Normal (NORMAL) 07/31/17 23:58 Ur Leukocyte Esterase Negative (NEGATIVE) 07/31/17 23:58 Urine RBC 0-2 /HPF (NEGATIVE) 07/31/17 23:58 Urine WBC None seen /HPF (NEGATIVE) 07/31/17 23:58 Ur Squamous Epith Cells Rare /HPF (NEGATIVE) 07/31/17 23:58 Urine Bacteria Negative /HPF (NEGATIVE) 07/31/17 23:58 Ur Culture Indicated? No/not indicated 07/31/17 23:58 Acetone, Semi-Quant Negative (NEGATIVE) 07/29/17 12:31 Influenza Type A (PCR) Negative (NEGATIVE) 07/30/17 11:34 Influenza Type B (PCR) Negative (NEGATIVE) 07/30/17 11:34 - Plan (1) Acute kidney failure Status: Acute Qualifiers: Acute renal failure type: unspecified Qualified Code(s): N17.9 - Acute kidney failure, unspecified Plan: NS AT 125ML/HR1 AMP BICARB TO EACH LITER OF FLUID, BOLUS 500ML NS, CONTINUE TO MONITOR LABS. (2) Generalized weakness Status: Acute Plan: CONTINUE TO HYDRATE, CONTINUE TO MONITOR (3) Anemia Status: Acute Qualifiers: Anemia type: unspecified type Qualified Code(s): D64.9 - Anemia, unspecified Plan: MONITOR H&H, TRANSFUSE PRBC IF HGB FALLS BELOW 7 (4) Hypoalbuminemia Status: Acute Plan: ALBUMIN 25% IV DAILY, CONTINUE TO MONITOR
[2017-08-05] MEDS: SNACK - Diabetic Appropriate PO SCH (20:41)
[2017-08-05] MEDS: FLOMAX PO SCH (21:27)
[2017-08-05] MEDS: COLACE CAP 100 MG PO SCH (21:27)
[2017-08-05] MEDS: NORCO 10/325 TAB PO PRN (23:21)
[2017-08-05] MEDS ORDERED: SODIUM BICARBONATE 8.4% INJ ADULT ONE (23:25)
[2017-08-05] MEDS: NS 1000 ML 1,000 ML with SODIUM BICARBONATE 8.4% INJ ADULT 50 ML IV PRN ×2 (23:38)
[2017-08-06 04:41] LABS: BASOPHILS % (AUTO) 1.3 % (0.2-1.0); EOSINOPHILS # (AUTO) 0.3 x10^3/uL (0.0-0.2); EOSINOPHILS % (AUTO) 7.7 % (0.9-2.9); HEMATOCRIT 22.6 % (42.0-54.0); HEMOGLOBIN 7.7 g/dL (13.5-18.0); LYMPHOCYTES # (AUTO) 0.6 X10^3/uL (1.3-2.9); LYMPHOCYTES % (AUTO) 17.5 % (21.0-51.0); MEAN CORPUSCULAR HEMOGLOBIN 29.7 pg (27.0-34.0); MEAN CORPUSCULAR VOLUME 87.3 fL (80.0-100.0); MEAN PLATELET VOLUME 8.9 fL (7.4-11.0); MONOCYTES # (AUTO) 0.4 x10^3/uL (0.3-0.8); MONOCYTES % (AUTO) 12.7 % (0.0-13.0); NEUTROPHILS # (AUTO) 2.1 x10^3/uL (2.2-4.8); NEUTROPHILS % (AUTO) 60.8 % (42.0-75.0); PLATELET COUNT 253 X10^3/uL (150.0-450.0); RED BLOOD COUNT 2.59 X10^6/uL (4.7-6.0); RED CELL DISTRIBUTION WIDTH 15.4 % (11.6-16.5); WHITE BLOOD COUNT 3.4 X10^3/uL (3.6-10.0)
[2017-08-06 04:45] LABS: ALANINE AMINOTRANSFERASE 24 Units/L (12-78); ALBUMIN 2.5 g/dL (3.4-5.0); ALKALINE PHOSPHATASE 47 Units/L (46-116); ASPARTATE AMINO TRANSFERASE 29 Units/L (15-37); BLOOD UREA NITROGEN 38 mg/dL (7-18); CALCIUM 8.5 mg/dL (8.5-10.1); CARBON DIOXIDE 27.5 mmol/L (21-32); CHLORIDE 109 mmol/L (98-107); COR CA(FOR HYPOALB) 9.7 mg/dL (8.5-10.1); CREATININE 4.26 mg/dL (0.70-1.30); SODIUM 145 mmol/L (136-145); TOTAL PROTEIN 6.1 g/dL (6.4-8.2); eGFR BLACK RACES 18 (>60); eGFR NON BLACK RACES 15 (>60)
[2017-08-06 05:15] LABS: ABG BASE EXCESS 5.5 mmol/L (-2.0-2.0); ABG HCO3 28.7 mmol/L (22-26)
[2017-08-06 05:56] LABS: HYPOCHROMASIA 1+; PLATELET MORPHOLOGY COMMENT NORMAL (NORMAL)
[2017-08-06] MEDS: XOPENEX 1.25 MG/3 ML NEBULE NEB SCH ×4 (09:00→20:26)
[2017-08-06] MEDS: SYNTHROID 100 mcg TAB PO SCH (09:07)
[2017-08-06] MEDS: MILK OF MAGNESIA PO SCH ×2 (09:07→20:50)
[2017-08-06] MEDS: ALBUMIN HUMAN 25%- 100ML 100 ML IV SCH (09:07)
[2017-08-06] MEDS: PROTONIX INJ 40 MG VIAL IVP SCH ×2 (09:07→20:50)
[2017-08-06] MEDS: NS 1000 ML 1,000 ML with SODIUM BICARBONATE 8.4% INJ ADULT 50 ML IV PRN ×2 (14:56)
[2017-08-06] MEDS: PEPCID 20 MG IV PREMIX* 20 MG/50 ML BAG IV SCH (20:50)
[2017-08-06] MEDS: COLACE CAP 100 MG PO SCH (20:50)
[2017-08-06] MEDS: FLOMAX PO SCH (20:50)
[2017-08-06] MEDS: SNACK - Diabetic Appropriate PO SCH (20:51)
[2017-08-07] MEDS: NS 1000 ML 1,000 ML with SODIUM BICARBONATE 8.4% INJ ADULT 50 ML IV PRN ×4 (05:38→22:01)
[2017-08-07 06:53] LABS: BASOPHILS # (AUTO) 0.1 X10^3/uL (0.0-0.1); EOSINOPHILS # (AUTO) 0.3 x10^3/uL (0.0-0.2); HEMATOCRIT 24.5 % (42.0-54.0); HEMOGLOBIN 8.2 g/dL (13.5-18.0); LYMPHOCYTES # (AUTO) 0.6 X10^3/uL (1.3-2.9); LYMPHOCYTES % (AUTO) 19.1 % (21.0-51.0); MEAN CORPUSCULAR HEMOGLOBIN 29.6 pg (27.0-34.0); MEAN CORPUSCULAR HGB CONC 33.6 g/dL (33.0-35.0); MEAN CORPUSCULAR VOLUME 88.1 fL (80.0-100.0); MONOCYTES # (AUTO) 0.4 x10^3/uL (0.3-0.8); MONOCYTES % (AUTO) 12.8 % (0.0-13.0); NEUTROPHILS # (AUTO) 1.9 x10^3/uL (2.2-4.8); NEUTROPHILS % (AUTO) 58.1 % (42.0-75.0); PLATELET COUNT 271 X10^3/uL (150.0-450.0); RED BLOOD COUNT 2.78 X10^6/uL (4.7-6.0); RED CELL DISTRIBUTION WIDTH 15.4 % (11.6-16.5); WHITE BLOOD COUNT 3.3 X10^3/uL (3.6-10.0)
[2017-08-07 07:09] LABS: ALANINE AMINOTRANSFERASE 22 Units/L (12-78); ALBUMIN 2.7 g/dL (3.4-5.0); ALKALINE PHOSPHATASE 45 Units/L (46-116); ASPARTATE AMINO TRANSFERASE 26 Units/L (15-37); BLOOD UREA NITROGEN 37 mg/dL (7-18); CALCIUM 8.6 mg/dL (8.5-10.1); CARBON DIOXIDE 25.8 mmol/L (21-32); CHLORIDE 110 mmol/L (98-107); COR CA(FOR HYPOALB) 9.6 mg/dL (8.5-10.1); CREATININE 3.81 mg/dL (0.70-1.30); SODIUM 145 mmol/L (136-145); TOTAL PROTEIN 6.4 g/dL (6.4-8.2); eGFR BLACK RACES 20 (>60); eGFR NON BLACK RACES 17 (>60)
--- NOTE | 2017-08-07 08:24 | RAD ---
Chest, one-view Indication: Sick for several weeks Comparison: 08/05/2017 Findings: Heart size is normal for technique. Prior CABG changes noted. There are patchy bibasilar op acities, either reflecting atelectasis or developing infiltrate. Upper lungs are clear. No significan t effusion or pneumothorax. Impression: Patchy bibasilar opacities, either reflecting atelectasis and/or developing infiltrate. C orrelation recommended. Reported By:
[2017-08-07] MEDS: SYNTHROID 100 mcg TAB PO SCH (09:07)
[2017-08-07] MEDS: MILK OF MAGNESIA PO SCH ×3 (09:07→21:03)
[2017-08-07] MEDS: ALBUMIN HUMAN 25%- 100ML 100 ML IV SCH (09:07)
[2017-08-07] MEDS: PROTONIX INJ 40 MG VIAL IVP SCH ×2 (09:07→21:03)
[2017-08-07] MEDS: XOPENEX 1.25 MG/3 ML NEBULE NEB SCH ×4 (09:48→20:32)
[2017-08-07] MEDS: SNACK - Diabetic Appropriate PO SCH (20:30)
[2017-08-07] MEDS: FLOMAX PO SCH (21:03)
[2017-08-07] MEDS: COLACE CAP 100 MG PO SCH (21:03)
[2017-08-08] MEDS: NORCO 10/325 TAB PO PRN (01:53)
[2017-08-08 06:17] LABS: BASOPHILS # (AUTO) 0.1 X10^3/uL (0.0-0.1); BASOPHILS % (AUTO) 1.8 % (0.2-1.0); EOSINOPHILS # (AUTO) 0.2 x10^3/uL (0.0-0.2); EOSINOPHILS % (AUTO) 7.9 % (0.9-2.9); HEMATOCRIT 24.9 % (42.0-54.0); HEMOGLOBIN 8.4 g/dL (13.5-18.0); LYMPHOCYTES # (AUTO) 0.7 X10^3/uL (1.3-2.9); LYMPHOCYTES % (AUTO) 22.1 % (21.0-51.0); MEAN CORPUSCULAR HEMOGLOBIN 29.6 pg (27.0-34.0); MEAN CORPUSCULAR HGB CONC 33.7 g/dL (33.0-35.0); MEAN CORPUSCULAR VOLUME 87.8 fL (80.0-100.0); MONOCYTES # (AUTO) 0.3 x10^3/uL (0.3-0.8); MONOCYTES % (AUTO) 10.7 % (0.0-13.0); NEUTROPHILS # (AUTO) 1.8 x10^3/uL (2.2-4.8); NEUTROPHILS % (AUTO) 57.5 % (42.0-75.0); PLATELET COUNT 273 X10^3/uL (150.0-450.0); RED BLOOD COUNT 2.84 X10^6/uL (4.7-6.0); RED CELL DISTRIBUTION WIDTH 15.1 % (11.6-16.5)
[2017-08-08 06:18] LABS: ALBUMIN 3.1 g/dL (3.4-5.0); CALCIUM 8.7 mg/dL (8.5-10.1); CARBON DIOXIDE 27.6 mmol/L (21-32); COR CA(FOR HYPOALB) 9.4 mg/dL (8.5-10.1); CREATININE 3.37 mg/dL (0.70-1.30); TOTAL PROTEIN 6.8 g/dL (6.4-8.2)
[2017-08-08 06:42] LABS: PSA TOTAL 1.7 ng/mL (0.0-4.0)
[2017-08-08 08:35] VITALS: BP 173/73
[2017-08-08] MEDS: XOPENEX 1.25 MG/3 ML NEBULE NEB SCH (09:15)
[2017-08-08] MEDS: ALBUMIN HUMAN 25%- 100ML 100 ML IV SCH (10:13)
[2017-08-08] MEDS: MILK OF MAGNESIA PO SCH (10:13)
[2017-08-08] MEDS: PROTONIX INJ 40 MG VIAL IVP SCH (10:13)
[2017-08-08] MEDS: SYNTHROID 100 mcg TAB PO SCH (10:14)
== END 2017-08-08 11:15 | disposition home health service (06) | DRG 683 ==
LOC: ER 12:05 → MED/SURG 16:00
PROVIDERS: ADMIT Internal Medicine; ATTEND Internal Medicine
DX: N17.8 Other acute kidney failure (principal); E86.0 Dehydration; E87.1 Hypo-osmolality and hyponatremia; R53.1 Weakness; I25.10 Atherosclerotic heart disease of native coronary artery without angina pectoris; E11.65 Type 2 diabetes mellitus with hyperglycemia; I95.1 Orthostatic hypotension; R10.11 Right upper quadrant pain; D64.89 Other specified anemias; E88.09 Other disorders of plasma-protein metabolism, not elsewhere classified; M13.89 Other specified arthritis, multiple sites; N40.0 Benign prostatic hyperplasia without lower urinary tract symptoms; R26.89 Other abnormalities of gait and mobility
CPT/HCPCS: 36415; 36600; 71010; 74000; 74176; 76770; 80048; 80053; 80069; 81001; 82009; 82150; 82550; 82553; 82803; 83605; 83690; 84134; 84153; 84154; 84484; 84550; 85014; 85018; 85025; 86850; 86900; 86901; 86922; 87040; 87070; 87205; 87502; 93005; 93010; 94640; 94760; 96365; 96367; 96374; 99221; 99284; A4222; C9113; P9047; S0028; J1956; J2543; J3490

== ENCOUNTER 2023-11-30 09:27 | Inpatient (IN) ==
[2023-11-30] MEDS ORDERED: NS 1,000 ML IV 1,000 ML ONE ×4 (09:41→15:19)
--- NOTE | 2023-11-30 09:50 | EKG ---
Test Reason : hypotensive Blood Pressure : */* mmHG Vent. Rate : 76 BPM Atrial Rate : 76 BPM P-R Int : 156 ms QRS Dur : 100 ms QT Int : 398 ms P-R-T Axes : 30 -1 59 degrees QTc Int : 447 ms Normal sinus rhythm Cannot rule out Anterior infarct , age undetermined Abnormal ECG No previous ECGs available Confirmed by Dimitris Erwin ([id number]) on 12/01/2023 11:06:21 AM Referred By: Confirmed By: Dimitris Erwin
[2023-11-30] MEDS ORDERED: ROMAZICON INJ 1 MG ONE (09:54)
[2023-11-30] MEDS: ROMAZICON INJ 1 MG IVP ONE ×2 (09:54→10:02)
[2023-11-30] MEDS: NS 1,000 ML IV 1,000 ML IV ONE ×4 (09:56→16:24)
[2023-11-30 10:06] LABS: BILIRUBIN,URINE 1+ (NEGATIVE); BLOOD/HEMOGLOBIN,URINE 4+ (NEGATIVE); GLUCOSE, URINE NEGATIVE (NEGATIVE); KETONES,URINE 1+ (NEGATIVE); LEUKOCYTE ESTERASE ,URINE 3+ (NEGATIVE); NITRITES,URINE NEGATIVE (NEGATIVE); PROTEIN,URINE 3+ (NEGATIVE); UROBILINOGEN,URINE 1+ (NORMAL)
--- NOTE | 2023-11-30 10:07 | DR.AMS ---
HPI Time Seen Time Seen by Provider: 11/30/23 09:35 PCP Primary Care Physician: Valencia Complaint Cheif Complaint Doctors Comments: Patient was sent over from the correction with symptoms of low blood pressure hypoxia and decreased level of consciou sness. He has no history of CVA he does have a history of dementia and he was given Ativan 1 mg last p.m. Chief Complaint:: Pt found by staff to be not responding other than to painful stimuli, O2 sat 76% on room air, afebrile, 90% on 2L COVID-19 Coronavirus risk:travel/contact w/high risk person: No Has patient experienced Coronavirus symptoms: No Source History Provided: [facility] Mode of Arrival Mode of Arrival: Stretcher Timing Onset of Chief Complaint: 11/30/23 PMH PMH Past Medical History: Yes Past Medical History: Arthritis, Coronary Artery Disease, Dementia, Diabetes, Dyslipidemia, GERD and Hypothyroidism Past Surgical History: Yes Surgical History: CABG/Valve Surgery Family History History of Family Medical Conditions: Yes Family Medical History: Diabetes Mellitus and Hypertension Social History Does patient currently use any type of tobacco product: No Have you used tobacco products in the last 12 months: No Type of Tobacco Use: None Does any household member use tobacco: No Alcohol Use: None Do you use any recreational Drugs:: No Lives With: Other Lives Where: [facility] Travel Risk Coronavirus risk:travel/contact w/high risk person: No Has patient experienced Coronavirus symptoms: No Infectious screening In the last 2 months have you had wt loss of >10#?: NO Have you had fever, night sweats or hemotysis?: No Have you traveled outside the country in the last 6 months?: No Isolation: Standard ROS Review of Systems Constitutional: Other (3 decreased level consciousness, hypotension and hypoxia) Eyes: Other (pinpoint) ENTM: No Symptoms Reported Respiratoy: No Symptoms Reported Cardiovascular: No Symptoms Reported Gastrointestinal/Abdominal: No Symptoms Reported Genitourinary: No Symptoms Reported Neurological: Other (decreased loc) Musculoskeletal: No Symptoms Reported Integumentary: No Symptoms Reported Hematologic/Lymphatic: No Symptoms Reported Endocrine: No Symptoms Reported Psychiatric: Other (dementia) PE Vitals Vital Signs: Temp Pulse Resp BP Pulse Ox O2 Del Method 11/30/23 12:10 124/58 11/30/23 12:10 64 15 100 11/30/23 12:05 128/60 11/30/23 12:05 71 16 100 11/30/23 12:00 126/59 11/30/23 12:00 74 14 100 11/30/23 11:55 66 14 100 11/30/23 11:55 116/57 11/30/23 11:50 108/55 11/30/23 11:50 64 12 100 11/30/23 11:45 88/50 11/30/23 11:45 63 14 100 11/30/23 11:40 62 15 100 11/30/23 11:40 85/48 11/30/23 11:35 98/53 11/30/23 11:35 63 15 100 11/30/23 11:30 71/41 11/30/23 11:30 71/41 11/30/23 11:30 58 L 15 100 11/30/23 11:25 58 L 13 100 11/30/23 11:25 99/51 11/30/23 11:25 99/51 11/30/23 11:20 64 14 100 11/30/23 11:20 108/53 11/30/23 11:20 108/53 11/30/23 11:15 108/53 11/30/23 11:15 62 14 100 11/30/23 11:10 68 16 100 11/30/23 11:10 100/54 11/30/23 11:08 66 15 100 11/30/23 11:08 103/54 11/30/23 11:07 61 14 100 11/30/23 11:00 66 14 100 11/30/23 11:00 99/51 11/30/23 10:55 106/56 11/30/23 10:55 68 15 100 11/30/23 10:50 61 13 100 11/30/23 10:50 94/51 11/30/23 10:45 65 15 100 11/30/23 10:45 105/51 11/30/23 10:40 63 16 100 11/30/23 10:40 90/53 11/30/23 10:35 67 15 100 11/30/23 10:35 100/50 11/30/23 10:31 90/51 11/30/23 10:31 64 14 100 11/30/23 10:30 63 14 100 11/30/23 10:25 66 16 100 11/30/23 10:25 98/53 11/30/23 10:20 63 14 89 L 11/30/23 10:20 88/50 11/30/23 10:15 65 14 100 11/30/23 10:15 79/48 11/30/23 10:12 84/50 11/30/23 10:12 66 15 100 11/30/23 10:11 66 93 L 11/30/23 09:52 70 16 99 11/30/23 09:52 87/53 11/30/23 09:45 80 15 99 11/30/23 09:42 80 16 97 11/30/23 09:42 79/47 11/30/23 09:39 82 17 68 L 11/30/23 09:41 98.0 F 82 16 79/47 98 Nasal Cannula General Limitations: Physical Limitation (non ambulatory) General Appearance: Other (non responsive) Head Head Exam: Normal Inspection Eyes Eye exam: Other (pinpoint pupils) ENT ENT Exam: Normal Exam External Ear Exam: Normal External Inspection TM/Canal Exam: Bilateral: Normal Nose Exam: Normal Nose Exam Mouth Exam: Normal Inspection Neck Neck Exam: Normal Inspection Chest Chest Inspection: Normal Inspection Respiratory Respiratory Exam: Normal Lung Sounds Bilat Respiratory Exam: Bilateral: Clear to Auscultation Cardiovascular Cardiovascular Exam: Regular Rate Abdominal Exam Abdominal Exam: Normal Inspection Extremities Extremities Exam: Normal Inspection Back Back Exam: Normal Inspection Neurological Neurological Exam: Other (non responsive) Skin Skin Exam: Warm, Dry and Intact MDM Differential Diagnosis Metabolic: Dehydration, Hypoglycemia and Hyponatremia Structural: CVA Toxicologic: Medication Toxicity Infectious: Sepsis COURSE Treatment Treatment: Patient was hypotensive when he first came to the emergency room we did give him a 1 L bolus of normal saline and his blood pressure did come up to about 90/60. We continued on the second liter bolus and his blood pressure maintained about 99/50. Did do a CT scan of his brain that showed him to have a low small low attenuation area of the right occipital lobe which was not present on a previous exam and is consistent with age-indeterminate infarct. They say consider MRI of the brain for further evaluation. He also has some right frontal parietal [place] moderate small vessel disease. The patient also had several chronic cerebral hemispheric lacunar infarcts. Also had a mild fluid in the left mastoid air cells. Need to be correlated with a possible mastoiditis. This patient had lactic acid level that was normal at 1.4 his urine show 1+ ketones +3 leukocyte esterase and too numerous to count WBCs. The urine drug screen was negative and his troponin was 10.9. The family did make this individual a DO NOT RESUSCITATE I did talk to the patient primary care provider Dr. Valencia at 1140 and he said to get an MRI of the brain without contrast and to put the patient in the ICU for further evaluation. If this MRI shows that this is a brainstem infarct then the family could be notified that the possibility of him surpassing a couple days is not probable. We did get the MRI of the brain in the emergency room and we will be looking at the results later. [facility] Labs Reviewed Laboratory Results Reviewed?: Yes 11/30/23 09:55 11/30/23 09:55 Laboratory: WBC 9.8 X10^3/uL (3.6-10.0) 11/30/23 09:55 RBC 3.79 X10^6/uL (4.7-6.0) L 11/30/23 09:55 Hgb 11.3 g/dL (13.5-18.0) L 11/30/23 09:55 Hct 34.3 % (42.0-54.0) L 11/30/23 09:55 MCV 90.6 fL (80.0-100.0) 11/30/23 09:55 MCH 29.8 pg (27.0-34.0) 11/30/23 09:55 MCHC 32.8 g/dL (33.0-35.0) L 11/30/23 09:55 RDW 14.2 % (11.6-16.5) 11/30/23 09:55 Plt Count 144 X10^3/uL (150.0-450.0) L 11/30/23 09:55 MPV 11.1 fL (7.4-11.0) H 11/30/23 09:55 Neut % (Auto) 75.3 % (42.0-75.0) H 11/30/23 09:55 Lymph % (Auto) 15.0 % (21.0-51.0) L 11/30/23 09:55 [place] % (Auto) 7.7 % (0.0-13.0) 11/30/23 09:55 Eos % (Auto) 1.2 % (0.9-2.9) 11/30/23 09:55 Baso % (Auto) 0.8 % (0.2-1.0) 11/30/23 09:55 Neut # (Auto) 7.4 x10^3/uL (2.2-4.8) H 11/30/23 09:55 Lymph # (Auto) 1.5 X10^3/uL (1.3-2.9) 11/30/23 09:55 [place] # (Auto) 0.8 x10^3/uL (0.3-0.8) 11/30/23 09:55 Eos # (Auto) 0.1 x10^3/uL (0.0-0.2) 11/30/23 09:55 Baso # (Auto) 0.1 X10^3/uL (0.0-0.1) 11/30/23 09:55 Absolute Nucleated RBC 0.1 /100WBC 11/30/23 09:55 PT 13.0 SECONDS (11.8-14.3) 11/30/23 09:55 INR Target Range - 11/30/23 09:55 INR 1.00 (0.8-1.3) 11/30/23 09:55 Sodium 141 mmol/L (136-145) 11/30/23 09:55 Corrected Sodium 143 mmol/L (136-145) 11/30/23 09:55 Potassium 3.6 mmol/L (3.5-5.1) 11/30/23 09:55 Chloride 107 mmol/L (98-107) 11/30/23 09:55 Carbon Dioxide 26.9 mmol/L (21-32) 11/30/23 09:55 BUN 48 mg/dL (7-18) H 11/30/23 09:55 Creatinine 2.09 mg/dL (0.70-1.30) H 11/30/23 09:55 Est GFR (MDRD) Af Amer 40 (>60) L 11/30/23 09:55 Est GFR (MDRD) Non-Af 33 (>60) L 11/30/23 09:55 Glucose 166 mg/dL (65-99) H 11/30/23 09:55 Lactic Acid 1.4 mmol/L (0.4-2.0) 11/30/23 10:25 Calcium 8.7 mg/dL (8.5-10.1) 11/30/23 09:55 Corrected Calcium 9.8 mg/dL (8.5-10.1) 11/30/23 09:55 Total Bilirubin 0.80 mg/dL (0.2-1.0) 11/30/23 09:55 AST 13 Units/L (15-37) L 11/30/23 09:55 ALT 13 Units/L (12-78) 11/30/23 09:55 Alkaline Phosphatase 86 Units/L (46-116) 11/30/23 09:55 Creatine Kinase 304 Units/L (39-308) 11/30/23 09:55 Troponin I High Sens 10.9 ng/L (4.0-60.0) 11/30/23 09:55 Total Protein 6.6 g/dL (6.4-8.2) 11/30/23 09:55 Albumin 2.6 g/dL (3.4-5.0) L 11/30/23 09:55 Globulin 4.0 g/dL (2.5-4.5) 11/30/23 09:55 Albumin/Globulin Ratio 0.7 Ratio (1.1-2.1) L 11/30/23 09:55 Specimen Type Catherized urine 11/30/23 09:52 Urine Color [place] (YELLOW) 11/30/23 09:52 Urine Appearance Cloudy (CLEAR) 11/30/23 09:52 Urine pH 7.0 (5.0 - 8.0) 11/30/23 09:52 Ur Specific [place] 1.015 (1.000-1.030) 11/30/23 09:52 Urine Protein 3+ (NEGATIVE) 11/30/23 09:52 Urine Glucose (UA) Negative (NEGATIVE) 11/30/23 09:52 Urine Ketones 1+ (NEGATIVE) 11/30/23 09:52 Urine Blood 4+ (NEGATIVE) 11/30/23 09:52 Urine Nitrite Negative (NEGATIVE) 11/30/23 09:52 Urine Bilirubin 1+ (NEGATIVE) 11/30/23 09:52 Urine Urobilinogen 1+ (NORMAL) 11/30/23 09:52 Ur Leukocyte Esterase 3+ (NEGATIVE) 11/30/23 09:52 Urine RBC 3-5 /HPF (0-3) A 11/30/23 09:52 Urine WBC Tntc /HPF (0-5) A 11/30/23 09:52 Ur Squamous Epith Cells Negative /HPF (NEGATIVE) 11/30/23 09:52 Urine Bacteria 4+ /HPF (NEGATIVE) 11/30/23 09:52 Ur Culture Indicated? Yes/culture set up 11/30/23 09:52 Urine Opiates Screen Negative (NEG=<300) 11/30/23 09:52 Urine Methadone Screen Negative (NEG=<300) 11/30/23 09:52 Ur Barbiturates Screen Negative (NEG=<200) 11/30/23 09:52 Ur Phencyclidine Scrn Negative (NEG=<25) 11/30/23 09:52 Ur Amphetamines Screen Negative (NEG=<1000) 11/30/23 09:52 U Benzodiazepines Scrn Negative (NEG=<200) 11/30/23 09:52 Urine Cocaine Screen Negative (NEG=<300) 11/30/23 09:52 U Marijuana (THC) Screen Negative (NEG=<50) 11/30/23 09:52 Opioid Opioid Risk Tool Age (Christopher box if 16-45): No History of Preadolescent Sexual Abuse: No Total: 0 Total Score Risk Category: Low Risk Copyright: Ken BENAVIDEZ predicting aberrant behaviors Discharge Plan Diagnosis Discharge Problem: Right-sided lacunar infarction, Urinary tract infection, Hypotension, Failure of outpatient treatment Discharge Plan Patient Disposition: 09 ADMITTED INPATIENT Condition: Stable Orders to Discharge Patient Discharge Orders: Transfer (Routine); Ordered 11/30/23 Ordered By: Kyle Falcon
[2023-11-30 10:12] LABS: BASOPHILS # (AUTO) 0.1 X10^3/uL (0.0-0.1); BASOPHILS % (AUTO) 0.8 % (0.2-1.0); EOSINOPHILS # (AUTO) 0.1 x10^3/uL (0.0-0.2); EOSINOPHILS % (AUTO) 1.2 % (0.9-2.9); HEMATOCRIT 34.3 % (42.0-54.0); HEMOGLOBIN 11.3 g/dL (13.5-18.0); LYMPHOCYTES # (AUTO) 1.5 X10^3/uL (1.3-2.9); MEAN CORPUSCULAR HEMOGLOBIN 29.8 pg (27.0-34.0); MEAN CORPUSCULAR HGB CONC 32.8 g/dL (33.0-35.0); MEAN CORPUSCULAR VOLUME 90.6 fL (80.0-100.0); MEAN PLATELET VOLUME 11.1 fL (7.4-11.0); MONOCYTES # (AUTO) 0.8 x10^3/uL (0.3-0.8); MONOCYTES % (AUTO) 7.7 % (0.0-13.0); NEUTROPHILS # (AUTO) 7.4 x10^3/uL (2.2-4.8); NEUTROPHILS % (AUTO) 75.3 % (42.0-75.0); PLATELET COUNT 144 X10^3/uL (150.0-450.0); RED BLOOD COUNT 3.79 X10^6/uL (4.7-6.0); RED CELL DISTRIBUTION WIDTH 14.2 % (11.6-16.5); WHITE BLOOD COUNT 9.8 X10^3/uL (3.6-10.0)
[2023-11-30 10:24] LABS: APPEARANCE,URINE CLOUDY (CLEAR); COLOR,URINE AMBER (YELLOW)
[2023-11-30 10:25] LABS: ALBUMIN 2.6 g/dL (3.4-5.0); CALCIUM 8.7 mg/dL (8.5-10.1); CARBON DIOXIDE 26.9 mmol/L (21-32); COR CA(FOR HYPOALB) 9.8 mg/dL (8.5-10.1); CREATININE 2.09 mg/dL (0.70-1.30); POTASSIUM 3.6 mmol/L (3.5-5.1); TOTAL PROTEIN 6.6 g/dL (6.4-8.2)
[2023-11-30 10:25] LABS: BACTERIA,URINE 4+ /HPF (NEGATIVE); SQUAMOUS EPITHELIAL CELL,UR NEGATIVE /HPF (NEGATIVE)
--- NOTE | 2023-11-30 10:25 | CT ---
EXAM:BRAIN W/O CONHISTORY:AMS;COMPARISON:CT head from 10/03/2021.TECHNIQUE:Multiple axial images of the head were performed from the skullbase to the vertex using standard departmental protocol. Sagittal and coronal reformatted images were performed. Dose reduction techniques including Automated Exposure Control (AEC) and adjustment of mA and kV were utilized.FINDINGS:Limitations: None significant.Ventricles and cisterns: Patent. Normal in size for age.Brain parenchyma: No parenchymal mass or hematoma. Right frontoparietal encephalomalacia.Moderate low attenuation change in the subcortical and deep supratentorial white matter.There are few small low-attenuation foci in the cerebellar hemispheres, likely chronic lacunar infarcts. These were present on prior study. Small low-attenuation area in the right occipital lobe image 33 series 6 was not present on prior study.Extra-axial: No extra-axial collection.Orbits: The globes are intact.Sinuses: No air-fluid levels in the paranasal sinuses. No paranasal sinus wall thickening or sclerosis. Mild fluid in the left mastoid air cells. The right mastoid air cells are clear.Bones: The calvarium is intact.IMPRESSION:Small low-attenuation area in the right occipital lobe was not definitely present on prior study and is consistent with age-indeterminate infarct. Consider MRI of the brain for further evaluation as clinically warranted.Right frontoparietal encephalomalacia. Moderate chronic small vessel disease. Chronic cerebellar hemisphere lacunar infarcts.Mild fluid in the left mastoid air cells. Please correlate clinically for mastoiditis.THIS IS AN ELECTRONICALLY VERIFIED FINAL REPORT11/30/2023 10:22 AM - Electronically signed by Chema Martínez MD
[2023-11-30 14:00] VITALS: BMI 23.6
[2023-11-30] MEDS: PHARMACY CONSULT LTC MEDICATIONS XX SCH (14:31)
--- NOTE | 2023-11-30 14:47 | MRI ---
EXAM:BRAIN W/O CONHISTORY:unresponsive and hypoxia/ R/O STROKE ;COMPARISON:CT head from 11/30/2023.TECHNIQUE:Multiplanar multi-sequence MRI of the brain was obtained utilizing standard departmental protocol. Sagittal and axial T1 weighted images were obtained. Axial T2 and flair weighted images were performed as well. Axial diffusion weighted and ADC trace mapping was performed.FINDINGS:Severe motion artifact on the axial T2 sequence limits evaluation. Mild motion artifact on other pulse sequences.Diffusion imaging: No abnormal restricted diffusion identified.Susceptibility weighted imaging: No abnormal susceptibility artifact.Brain volume: Appropriate for age.Ventricles and basal cisterns: Normal for age.Extra-axial spaces: No extra-axial collection.Cerebral parenchyma: Encephalomalacia in the right frontal and parietal lobes with associated gliosis. Moderate amount of T2 and FLAIR hyperintensities in the subcortical and deep supratentorial white matter.Pituitary and other sagittal midline structures: No abnormality identified.Visualized orbits: Limited due to motion artifact.Paranasal sinuses and mastoid air cells: Mild fluid in the left mastoid air cells.Bones: Intact.Other: None.IMPRESSION:Motion limited study.No abnormal restricted diffusion is identified to suggest acute infarct. Chronic ischemic change including encephalomalacia in the right frontal and parietal lobes and moderate chronic small vessel disease.Mild fluid in the left mastoid air cells. Please correlate clinically for mastoiditis.THIS IS AN ELECTRONICALLY VERIFIED FINAL REPORT11/30/2023 2:32 PM - Electronically signed by Chema Martínez MD
[2023-11-30] MEDS: ROCEPHIN VIAL 1 GRAM 1 G in NS 100 ML IV 100 ML IV SCH (18:29)
[2023-11-30] MEDS: NS 1,000 ML IV 1,000 ML IV SCH (18:29)
--- NOTE | 2023-11-30 20:39 | RAD ---
EXAM:CHEST, 1 VIEWHISTORY:Shortness of breath and hypoxiaCOMPARISON:October 11, 2021TECHNIQUE:One view of the chestFINDINGS:Median sternotomy wires. Focal airspace infiltrate right lower lobe. Patchy infiltrates left lower lobe. Heart is enlarged.IMPRESSION:Bibasilar pneumoniaDeleteTHIS IS AN ELECTRONICALLY VERIFIED FINAL REPORT11/30/2023 8:36 PM - Electronically signed by Ruben Blum MD
[2023-12-01 04:52] LABS: BASOPHILS # (AUTO) 0.2 X10^3/uL (0.0-0.1); BASOPHILS % (AUTO) 2.8 % (0.2-1.0); EOSINOPHILS # (AUTO) 0.3 x10^3/uL (0.0-0.2); EOSINOPHILS % (AUTO) 4.9 % (0.9-2.9); HEMATOCRIT 31.9 % (42.0-54.0); HEMOGLOBIN 10.4 g/dL (13.5-18.0); LYMPHOCYTES # (AUTO) 0.8 X10^3/uL (1.3-2.9); LYMPHOCYTES % (AUTO) 14.2 % (21.0-51.0); MEAN CORPUSCULAR HEMOGLOBIN 29.8 pg (27.0-34.0); MEAN CORPUSCULAR HGB CONC 32.5 g/dL (33.0-35.0); MEAN CORPUSCULAR VOLUME 91.5 fL (80.0-100.0); MEAN PLATELET VOLUME 11.6 fL (7.4-11.0); MONOCYTES # (AUTO) 0.6 x10^3/uL (0.3-0.8); MONOCYTES % (AUTO) 9.5 % (0.0-13.0); NEUTROPHILS # (AUTO) 4.1 x10^3/uL (2.2-4.8); NEUTROPHILS % (AUTO) 68.6 % (42.0-75.0); PLATELET COUNT 105 X10^3/uL (150.0-450.0); RED BLOOD COUNT 3.48 X10^6/uL (4.7-6.0); RED CELL DISTRIBUTION WIDTH 14.6 % (11.6-16.5); WHITE BLOOD COUNT 5.9 X10^3/uL (3.6-10.0)
[2023-12-01 05:10] LABS: ALANINE AMINOTRANSFERASE 12 Units/L (12-78); ALBUMIN 1.9 g/dL (3.4-5.0); ALKALINE PHOSPHATASE 67 Units/L (46-116); ASPARTATE AMINO TRANSFERASE 25 Units/L (15-37); BLOOD UREA NITROGEN 39 mg/dL (7-18); CALCIUM 7.5 mg/dL (8.5-10.1); CARBON DIOXIDE 24.1 mmol/L (21-32); CHLORIDE 114 mmol/L (98-107); COR CA(FOR HYPOALB) 9.2 mg/dL (8.5-10.1); COR NA(FOR HYPERGLY) 146 mmol/L (136-145); CREATININE 1.44 mg/dL (0.70-1.30); GLUCOSE 129 mg/dL (65-99); POTASSIUM 3.8 mmol/L (3.5-5.1); SODIUM 145 mmol/L (136-145); TOTAL PROTEIN 5.4 g/dL (6.4-8.2); eGFR NON BLACK RACES 50 (>60)
[2023-12-01] MEDS ORDERED: MORPHINE SULFATE INJ 2 MG INJ IVP PRN (13:14)
--- NOTE | 2023-12-01 13:22 | DR.H&P ---
H&P - History & Physical for Day of: H&P Date: 11/30/23 - Chief Complaint Chief Complaint: UNRESPONSIVE, HYPOTENSIVE - History of Present Illness History of Present Illness: IS A 78 YEAR OLD PATIENT OF . HE IS A [facility] OF [facility]. MEDICAL HX INCLUDES: ARTHRITIS, CAD, DEMENTIA, DIABETES MELLITUS, DYSLIPIDEMIA, GERD, HYPOTHYROIDISM, GERD, CABG. HE PRESENTED TO THE ER FROM THE GROUP HOME WIHT SYMPTOMS OF LOW BLOOD PRESSURE, HYPOXIA, AND DECREASED LEVEL OF CONSCIOUSNESS. PATIENT WAS ONLY RESPONSIVE TO PAINFUL STIMULATION. GROUP HOME STAFF REPORTS THAT HE HAS GIVEN ATIVAN 1MG PO LAST NIGHT FOR AGITATION. THEY ALSO REPORT THAT HE HAS BEEN TAKING [id number] BID FOR TX OF A UTI. ON ARRIVAL TO THE ER, HIS VITALS WERE: 98.0-82-16-76%-79/47. NASAL CANNULA AT 2 LPM WAS APPLIED AND SATURATIONS INCR EASED TO 90%. LABS WERE OBTAINED. WBC 9.8, RBC 3.79, HGB 11.3, HCT 34.3, SODIUM 141, POTASSIUM 3.6, CHLORIDE 107, BUN 48, CREATININE 2.09, GLUCOSE 166, CALCIUM 8.7, TOTAL BILI 0.80, AST 13, ALT 13, ALK PHOS 86, CREATINE KINASE 304, TROPONIN 10.9, TOTAL PROTEIN 6.6, ALBUMIN 2.6. URINALYSIS REVEALED: WBC TNTC, RBC 3-5, LEUKOCYTES 3+, BACTERIA 4+. BLOOD AND URINE CULTURES WERE SET UP. DRUG SCREEN WAS NEGATIVE. EKG WAS OBTAINED AND REVEALED NORMAL SINUS RHYTHM WITH HR [address] WAS OBTAINED AND REVEALED: Small low-attenuation area in the right occipital lobe was not definitely present on prior study and is consistent with age-indeterminate infarct. Right frontoparietal encephalomalacia. Moderate chronic small vessel disease. Chronic cerebellar hemisphere lacunar infarcts. Mild fluid in the left mastoid air cells. Please correlate clinically for mastoiditis. A BRAIN MRI WAS OBTAINED AND REVEALED: Motion limited study. No abnormal restricted diffusion is identified to suggest acute infarct. Chronic ischemic change including encephalomalacia in the right frontal and parietal lobes and moderate chronic small vessel disease. Mild fluid in the left mastoid air cells. Please correlate clinically for mastoiditis. A CHEST XRAY WAS OBTAINED AND REVEALED: Bibasilar pneumonia. IN THE ER, PATIENT WAS GIVEN A NORMAL SALINE 2 LITERS BOLUS, ROMAZICON 0.2MG IV X 1. HE WAS ADMITTED TO THE HOSPTIAL INPATIENT STATUS FOR FURTHER EVALUATION AND TREATMENT OF UTI WITH FAILED OUTPATIENT TX, AMS, CVA, HYPOTENSION. WE SPOKE WITH PATIENTS DAUGHTER IN REGARDS TO PLAN OF CARE. THEY DO NOT WITH FOR ANY LIFE SAVING OR PROLONGING MEASURES. THEY ARE AGREEABLE TO IV ANTIBIOTICS AND IV FLUIDS. HE WAS STARTED ON NORMAL SALINE AT 125 ML/HR, ROCEPHIN 1G IV DAILY, MORPHINE 2MG IV Q4H PRN. WE WILL NOT RESUME ANY OF HIS ORAL MEDICATIONS AT THIS TIME DUE T OPATIENT NOT BEING RESPONSIVE ENOUGH AT THIS TIME. OTHERWISE, WE PLAN TO FOLLOW UP WITH AM LABS AND CHEST XRAY AND CONTINUE TO MONITOR. TIME SPENT ON CLINICAL ASSESSMENT, REVIEWING LABS AND IMAGING, DECISION MAKING, AND DOCUMENTATION GREATER THAN 75 MINUTES. - Past Medical History Past Medical History: Coronary Artery Disease, Dyslipidemia, Diabetes, Dementia, Hypothyroidism, GERD, Arthritis - Past Surgical History Surgical History: Unknown - Family History Family Medical History: Diabetes Mellitus, Hypertension - Social History Does patient currently use any type of tobacco product: No Have you used tobacco products in the last 12 months: No Type of Tobacco Use: None Does any household member use tobacco: No Alcohol Use: None - Review of Systems Constitutional: Weakness ENT: No Symptoms Reported Respiratory: No Symptoms Reported Cardiovascular: No Symptoms Reported Gastrointestinal: No Symptoms Reported Genitourinary: No Symptoms Reported Musculoskeletal: No Symptoms Reported Skin: No Symptoms Reported Neurological: No Symptoms Reported - Physical Exam Vital Signs: Vital Signs Pulse Rate 40 Pulse Rate 51 Pulse Rate 39 Pulse Rate 44 Pulse Rate 63 Pulse Rate 57 Pulse Rate 41 Pulse Rate 45 Pulse Rate 52 Pulse Rate 52 Pulse Rate 46 Pulse Rate 58 Pulse Rate 50 Pulse Rate 51 Pulse Rate 49 Pulse Rate 43 Pulse Rate 44 Pulse Rate 40 Pulse Rate 41 Pulse Rate 44 Pulse Rate 46 Pulse Rate 53 Pulse Rate 43 Pulse Rate 49 Pulse Rate 50 Pulse Rate 43 Pulse Rate 42 Pulse Rate 40 Pulse Rate 51 Pulse Rate 45 Pulse Rate 48 Pulse Rate 52 Pulse Rate 52 Pulse Rate 44 Pulse Rate 48 Pulse Rate 48 Pulse Rate 56 Pulse Rate 60 Pulse Rate 55 Respiratory Rate 34 Respiratory Rate 40 Respiratory Rate 37 Respiratory Rate 34 Respiratory Rate 26 Respiratory Rate 60 Respiratory Rate 27 Respiratory Rate 39 Respiratory Rate 38 Respiratory Rate 15 Respiratory Rate 15 Respiratory Rate 33 Respiratory Rate 60 Respiratory Rate 58 Respiratory Rate 15 Respiratory Rate 48 Respiratory Rate 42 Respiratory Rate 59 Respiratory Rate 58 Respiratory Rate 13 Respiratory Rate 22 Respiratory Rate 27 Respiratory Rate 13 Respiratory Rate 14 Blood Pressure 113/57 Blood Pressure 145/63 Blood Pressure 111/55 Blood Pressure 130/60 Blood Pressure 141/65 Blood Pressure 124/60 Blood Pressure 102/50 Blood Pressure 128/60 Blood Pressure 135/58 Blood Pressure 107/53 Blood Pressure 96/50 Blood Pressure 134/64 Blood Pressure 136/60 Blood Pressure 128/59 O2 Sat by Pulse Oximetry 100 O2 Sat by Pulse Oximetry 100 O2 Sat by Pulse Oximetry 100 O2 Sat by Pulse Oximetry 100 O2 Sat by Pulse Oximetry 100 O2 Sat by Pulse Oximetry 100 O2 Sat by Pulse Oximetry 100 O2 Sat by Pulse Oximetry 100 O2 Sat by Pulse Oximetry 100 O2 Sat by Pulse Oximetry 100 O2 Sat by Pulse Oximetry 100 O2 Sat by Pulse Oximetry 100 O2 Sat by Pulse Oximetry 100 O2 Sat by Pulse Oximetry 100 O2 Sat by Pulse Oximetry 100 O2 Sat by Pulse Oximetry 100 O2 Sat by Pulse Oximetry 100 O2 Sat by Pulse Oximetry 100 O2 Sat by Pulse Oximetry 100 O2 Sat by Pulse Oximetry 100 O2 Sat by Pulse Oximetry 100 O2 Sat by Pulse Oximetry 100 O2 Sat by Pulse Oximetry 100 O2 Sat by Pulse Oximetry 100 O2 Sat by Pulse Oximetry 100 O2 Sat by Pulse Oximetry 100 O2 Sat by Pulse Oximetry 100 O2 Sat by Pulse Oximetry 100 O2 Sat by Pulse Oximetry 100 O2 Sat by Pulse Oximetry 100 O2 Sat by Pulse Oximetry 100 O2 Sat by Pulse Oximetry 100 O2 Sat by Pulse Oximetry 100 O2 Sat by Pulse Oximetry 100 O2 Sat by Pulse Oximetry 100 O2 Sat by Pulse Oximetry 100 O2 Sat by Pulse Oximetry 100 O2 Sat by Pulse Oximetry 100 O2 Sat by Pulse Oximetry 100 Oriented: Normal, Unable to test Eyes: Normal Ear: Normal Nose: Normal Throat: Normal Respiratory: Diminished Throughout Cardiovascular: Normal : Normal Auscultation: Bowel Sounds: Normal Palpation: Normal Tenderness: Normal Skin: Normal Musculoskeletal: Normal Psychiatric: Normal - Assessment/Plan (1) Urinary tract infection Qualifiers: Urinary tract infection type: acute cystitis Status: Acute Plan: ADMIT, NORMAL SALINE AT 125 ML/HR, ROCEPHIN 1G IV DAILY, MORPHINE 2MG IV Q4H PRN. (2) CVA (cerebral vascular accident) Qualifiers: CVA mechanism: unspecified Qualified Code(s): I63.9 - Cerebral infarction, unspecified Status: Acute (3) Generalized weakness Status: Acute (4) Hypotension Status: Acute (5) Failure of outpatient treatment Status: Acute - Allergies Allergies/Adverse Reactions: Allergies Allergy/AdvReac Type Severity Reaction Status Date / Time No Known Drug Allergies Allergy Verified 11/30/23 09:58 - Medications Home Medications: Home Medications Medication Instructions Recorded Confirmed lisinopril 10 mg tablet 10 mg PO DAILY 11/13/14 11/30/23 folic acid 1 mg tablet 1 mg PO DAILY 10/11/21 11/30/23 acetaminophen 325 mg tablet 650 mg PO Q4H PRN 11/30/23 11/30/23 (Tylenol) amino acids-protein hydrolysate 15 1 ea PO DAILY 11/30/23 11/30/23 gram-100 kcal/30 mL oral liquid (Pro-Stat Sugar Free) donepezil 10 mg tablet 10 mg PO QDAY 11/30/23 11/30/23 famotidine 20 mg tablet 20 mg PO QDAY 11/30/23 11/30/23 fluticasone propionate 50 1 spray intranasal BID 11/30/23 11/30/23 mcg/actuation nasal spray,suspension gabapentin 300 mg capsule 300 mg PO BID 11/30/23 11/30/23 insulin degludec 100 unit/mL 5 unit subcut QHS 11/30/23 11/30/23 subcutaneous solution (Tresiba U-100 Insulin) insulin degludec 100 unit/mL 10 unit subcut QDAY 11/30/23 11/30/23 subcutaneous solution (Tresiba U-100 Insulin) insulin regular human 100 unit/mL 1 sliding scale dose subcut 11/30/23 11/30/23 injection solution (Novolin R USEASDIRECTD Regular U-100 Insulin) levothyroxine 125 mcg tablet 125 mcg PO QDAY 11/30/23 11/30/23 lorazepam 1 mg tablet 1 mg PO QDAY 11/30/23 11/30/23 magnesium oxide 400 mg PO BID 11/30/23 11/30/23 melatonin 5 mg tablet 5 mg PO HS 11/30/23 11/30/23 multivit-minerals no.73-iron 1 cap PO BID 11/30/23 11/30/23 fumarate 106 mg-folic acid 1 mg capsule multivitamin 1 tab PO QDAY 11/30/23 11/30/23 nitrofurantoin 100 mg PO BID 11/30/23 11/30/23 monohydrate/macrocrystals 100 mg capsule peg [id number] 1 1 drp ophthalmic (eye) BID 11/30/23 11/30/23 %-0.2 %-0.2 % eye drops (Artificial Tears ([id number])) risperidone 0.5 mg tablet 0.5 mg PO BID 11/30/23 11/30/23 (Risperdal) rosuvastatin 40 mg tablet (Crestor) 40 mg PO QDAY 11/30/23 11/30/23 Previous Rx's Medication Instructions Recorded tamsulosin 0.4 mg capsule 0.4 mg PO HS #30 caps 08/08/17
[2023-12-01] MEDS: NovoLIN R (or HumuLIN R) SUBCUT PRN (20:54)
[2023-12-01] MEDS: SNACK - Diabetic Appropriate PO SCH (20:54)
[2023-12-02 05:21] LABS: BASOPHILS % (AUTO) 0.6 % (0.2-1.0); EOSINOPHILS # (AUTO) 0.3 x10^3/uL (0.0-0.2); EOSINOPHILS % (AUTO) 5.3 % (0.9-2.9); HEMATOCRIT 27.1 % (42.0-54.0); LYMPHOCYTES # (AUTO) 0.8 X10^3/uL (1.3-2.9); LYMPHOCYTES % (AUTO) 16.5 % (21.0-51.0); MEAN CORPUSCULAR HEMOGLOBIN 29.9 pg (27.0-34.0); MEAN CORPUSCULAR VOLUME 90.5 fL (80.0-100.0); MEAN PLATELET VOLUME 11.4 fL (7.4-11.0); MONOCYTES # (AUTO) 0.5 x10^3/uL (0.3-0.8); MONOCYTES % (AUTO) 8.9 % (0.0-13.0); NEUTROPHILS # (AUTO) 3.5 x10^3/uL (2.2-4.8); NEUTROPHILS % (AUTO) 68.7 % (42.0-75.0); PLATELET COUNT 116 X10^3/uL (150.0-450.0); WHITE BLOOD COUNT 5.1 X10^3/uL (3.6-10.0)
[2023-12-02 05:27] LABS: ALANINE AMINOTRANSFERASE 23 Units/L (12-78); ALBUMIN 1.7 g/dL (3.4-5.0); ALKALINE PHOSPHATASE 69 Units/L (46-116); ASPARTATE AMINO TRANSFERASE 29 Units/L (15-37); BLOOD UREA NITROGEN 28 mg/dL (7-18); CALCIUM 7.4 mg/dL (8.5-10.1); CARBON DIOXIDE 25.9 mmol/L (21-32); CHLORIDE 113 mmol/L (98-107); COR CA(FOR HYPOALB) 9.2 mg/dL (8.5-10.1); COR NA(FOR HYPERGLY) 149 mmol/L (136-145); CREATININE 1.24 mg/dL (0.70-1.30); GLUCOSE 141 mg/dL (65-99); POTASSIUM 3.2 mmol/L (3.5-5.1); SODIUM 148 mmol/L (136-145); TOTAL PROTEIN 4.9 g/dL (6.4-8.2); eGFR NON BLACK RACES 60 (>60)
[2023-12-02] MEDS ORDERED: CONSULT PHARMACY - POTASSIUM & MAGNESIUM XX SCH (07:00)
[2023-12-02] MEDS ORDERED: MAG-OX TAB PO SCH (09:00)
[2023-12-02] MEDS: K-DUR TAB 20 MEQ PO SCH (09:46)
[2023-12-02] MEDS: K-RIDER 10 MEQ/100 ML WATER 10 MEQ/100 ML BAG IV SCH (09:46)
[2023-12-02] MEDS: MAGNESIUM SULFATE 1 GRAM/100 mL PREMIX 1 G/100 ML BAG IV SCH (10:00)
[2023-12-02] MEDS: NS 1,000 ML IV 1,000 ML IV SCH (12:00)
[2023-12-02] MEDS: DUONEB 0.5 MG/3 MG (3 mL) NEB SCH (13:11)
--- NOTE | 2023-12-02 17:52 | PCM.PROG ---
Progress Note - Progress Note for Day of Date of Exam: 12/02/23 - Subjective Subjective: IS CURRENTLY INPATIENT STATUS FOR TREATMENT OF UTI FAILED OUTPATIENT TX, GENERALIZED WEAKNESS, HYPOTENSION, AND CVA. HIS MEDICAL HX INCLUDES: ARTHRITIS, CAD, DEMENTIA, DIABETES MELLITUS, DYSLIPIDEMIA, GERD, HYPOTHYROIDISM, GERD, CABG. NURSING STAFF REPORTS THAT PATIENT BECAME MUCH MORE ALERT YESTERDAY AFTERNOON. HE DID REMAIN DISORIENTED, BUT WAS ABLE TO EAT WITHOUT DIFFICULTY. PATIENT IS LYING IN BED WITH EYES CLOSED ON MORNING ROUNDS. HE OPENS EYES TO VERBAL STIMULI. HE SPEAKS TO VERBAL STIMULI, BUT REMAINS DISORIENTED. ON EXAMINATION, HE IS BRADYCARDIC WITH HR IN THE 40s. BILATERAL LUNGS ARE NOTED WITH DIMINISHED LUNG SOUNDS THROUGHOUT. ABDOMEN IS ROUND, SOFT, AND NON-TENDER WITH NORMAL BOWEL SOUNDS NOTED IN ALL QUADRANTS. DIFFUSE WEAKNESS OF UPPER AND LOWER EXTREMITIES, BUT NO EDEMA NOTED. HIS VITALS THIS MORNING ARE: 97.9-42-41-97%-132/60. LABS WERE OBTAINED. WBC 5.1, RBC 3.00, HGB 9.0, HCT 27.1, PLT COUNT 116, SODIUM 148, POTASSIUM 3.2, CHLORIDE 113, BUN 28, CREATININE 1.24, GLUCOSE 141, CALCIUM 7.4, MAGNSIUM 1.3, AST 29, ALT 23, ALT PHOS 69, TOTAL PROTEIN 4.9, ALBUMIN 1.7. BLOOD CULTURES ARE PENDING. URINE CULTURE IS POSITIVE FOR PROTEUS MIRABILIS. HE IS CURRENTLY RECEIVING NORMAL SALINE AT 125 ML/HR, ROCEPHIN 1G IV DAILY, MORPHINE 2MG IV Q4H PRN, DUONEBS TID, OTBS ACHS, HUMULIN R SLIDING SCALE. SINCE HE IS MORE ALERT, WE WILL RESUME HIS HOME MEDICATIONS OF MAG OX, TAMSULOSIN, CRESTOR, RISPERIDONE, FERROCITE PLUS, MULTIVITAMINS, MELATONIN, LISINOPRIL, LEVOTHYROXINE, GABAPENTIN, FOLIC ACID, FLONASE, FAMOTIDINE, DONEPEZIL, AND TYLENOL PRN. OTHERWISE, WE WILL FOLLOW-UP WITH AM LABS AND CONTINUE TO MONITOR. TIME SPENT ON CLINICAL ASSESSMENT, REVIEWING LABS AND IMAGING, DECISION MAKING, AND DOCUMENTATION GREATER THAN 45 MINUTES. - Past Medical Family Social History Past Med/Fam/Surg Hx: No changes since H&P Allergies: Allergies No Known Drug Allergies Allergy (Verified 11/30/23 09:58) - Review of Systems ROS: No change since H&P - Vital Signs and I&O's Vital Signs: Vital Signs Temperature 97.5 F Pulse Rate 49 Pulse Rate 42 Pulse Rate 46 Pulse Rate 55 Pulse Rate 49 Pulse Rate 49 Pulse Rate 50 Pulse Rate 48 Pulse Rate 41 Pulse Rate 42 Pulse Rate 45 Pulse Rate 45 Pulse Rate 46 Pulse Rate 44 Pulse Rate 42 Pulse Rate 45 Pulse Rate 49 Pulse Rate 46 Pulse Rate 51 Pulse Rate 46 Pulse Rate 53 Pulse Rate 51 Respiratory Rate 15 Respiratory Rate 23 Respiratory Rate 34 Respiratory Rate 27 Respiratory Rate 17 Respiratory Rate 21 Respiratory Rate 54 Respiratory Rate 50 Respiratory Rate 46 Respiratory Rate 14 Respiratory Rate 18 Respiratory Rate 38 Respiratory Rate 35 Respiratory Rate 14 Respiratory Rate 14 Respiratory Rate 13 Respiratory Rate 33 Respiratory Rate 38 Respiratory Rate 22 Respiratory Rate 25 Respiratory Rate 23 Blood Pressure 146/61 Blood Pressure 117/54 Blood Pressure 117/58 Blood Pressure 125/60 Blood Pressure 144/67 Blood Pressure 133/60 Blood Pressure 136/61 Blood Pressure 117/58 Blood Pressure 118/58 Blood Pressure 120/60 Blood Pressure 121/58 Blood Pressure 121/60 Blood Pressure 123/60 Blood Pressure 119/56 Blood Pressure 133/63 Blood Pressure 122/58 O2 Sat by Pulse Oximetry 99 O2 Sat by Pulse Oximetry 98 O2 Sat by Pulse Oximetry 98 O2 Sat by Pulse Oximetry 100 O2 Sat by Pulse Oximetry 99 O2 Sat by Pulse Oximetry 100 O2 Sat by Pulse Oximetry 99 O2 Sat by Pulse Oximetry 99 O2 Sat by Pulse Oximetry 97 O2 Sat by Pulse Oximetry 96 O2 Sat by Pulse Oximetry 100 O2 Sat by Pulse Oximetry 100 O2 Sat by Pulse Oximetry 99 O2 Sat by Pulse Oximetry 99 O2 Sat by Pulse Oximetry 97 O2 Sat by Pulse Oximetry 97 O2 Sat by Pulse Oximetry 98 O2 Sat by Pulse Oximetry 98 O2 Sat by Pulse Oximetry 99 O2 Sat by Pulse Oximetry 100 O2 Sat by Pulse Oximetry 98 O2 Sat by Pulse Oximetry 99 Intake and Output: Intake & Output 11/30/23 12/01/23 12/02/23 12/03/23 11:59 11:59 11:59 11:59 Intake Total 3405 / 3405 3190 / 3190 1665 / 1665 Output Total 470 / 470 1160 / 1160 450 / 450 Balance 2935 / 2935 2029 1215 / 1215 - Physical Exam Oriented: Not Oriented Eyes: Normal Ear: Normal Nose: Normal Throat: Normal Respiratory: Generalized, Diminished Cardiovascular: Normal : Normal Auscultation: Bowel Sounds: Normal Tenderness: Normal Skin: Normal Musculoskeletal: Normal Psychiatric: Normal Mood Description: Flat Affect: Normal Speech Pattern: Clear - Laboratory and Diagnostics Result Diagrams: 12/02/23 04:10 12/02/23 04:10 Labs: 11/30/23 09:52 Urine,Catheterized Urine Culture - Final Proteus Mirabilis 11/30/23 09:55 Blood Blood Culture - Preliminary 11/30/23 09:40 Blood Blood Culture - Preliminary Laboratory WBC 5.1 X10^3/uL (3.6-10.0) 12/02/23 04:10 RBC 3.00 X10^6/uL (4.7-6.0) L 12/02/23 04:10 Hgb 9.0 g/dL (13.5-18.0) L 12/02/23 04:10 Hct 27.1 % (42.0-54.0) L 12/02/23 04:10 MCV 90.5 fL (80.0-100.0) 12/02/23 04:10 MCH 29.9 pg (27.0-34.0) 12/02/23 04:10 MCHC 33.0 g/dL (33.0-35.0) 12/02/23 04:10 RDW 14.0 % (11.6-16.5) 12/02/23 04:10 Plt Count 116 X10^3/uL (150.0-450.0) L 12/02/23 04:10 MPV 11.4 fL (7.4-11.0) H 12/02/23 04:10 Neut % (Auto) 68.7 % (42.0-75.0) 12/02/23 04:10 Lymph % (Auto) 16.5 % (21.0-51.0) L 12/02/23 04:10 [place] % (Auto) 8.9 % (0.0-13.0) 12/02/23 04:10 Eos % (Auto) 5.3 % (0.9-2.9) H 12/02/23 04:10 Baso % (Auto) 0.6 % (0.2-1.0) 12/02/23 04:10 Neut # (Auto) 3.5 x10^3/uL (2.2-4.8) 12/02/23 04:10 Lymph # (Auto) 0.8 X10^3/uL (1.3-2.9) L 12/02/23 04:10 [place] # (Auto) 0.5 x10^3/uL (0.3-0.8) 12/02/23 04:10 Eos # (Auto) 0.3 x10^3/uL (0.0-0.2) H 12/02/23 04:10 Baso # (Auto) 0.0 X10^3/uL (0.0-0.1) 12/02/23 04:10 Absolute Nucleated RBC 0.1 /100WBC 12/02/23 04:10 PT 13.0 SECONDS (11.8-14.3) 11/30/23 09:55 INR Target Range - 11/30/23 09:55 INR 1.00 (0.8-1.3) 11/30/23 09:55 Sodium 148 mmol/L (136-145) H 12/02/23 04:10 Corrected Sodium 149 mmol/L (136-145) H 12/02/23 04:10 Potassium 3.2 mmol/L (3.5-5.1) L 12/02/23 04:10 Chloride 113 mmol/L (98-107) H 12/02/23 04:10 Carbon Dioxide 25.9 mmol/L (21-32) 12/02/23 04:10 BUN 28 mg/dL (7-18) H 12/02/23 04:10 Creatinine 1.24 mg/dL (0.70-1.30) 12/02/23 04:10 Est GFR (MDRD) Af Amer > 60 (>60) 12/02/23 04:10 Est GFR (MDRD) Non-Af 60 (>60) 12/02/23 04:10 Glucose 141 mg/dL (65-99) H 12/02/23 04:10 POC Glucose (mg/dL) 221 mg/dL (65-99) H 12/02/23 17:33 Lactic Acid 1.4 mmol/L (0.4-2.0) 11/30/23 10:25 Calcium 7.4 mg/dL (8.5-10.1) L 12/02/23 04:10 Corrected Calcium 9.2 mg/dL (8.5-10.1) 12/02/23 04:10 Magnesium 1.3 mg/dL (2.0-2.9) L 12/02/23 04:10 Total Bilirubin 0.40 mg/dL (0.2-1.0) 12/02/23 04:10 AST 29 Units/L (15-37) 12/02/23 04:10 ALT 23 Units/L (12-78) 12/02/23 04:10 Alkaline Phosphatase 69 Units/L (46-116) 12/02/23 04:10 Creatine Kinase 304 Units/L (39-308) 11/30/23 09:55 Troponin I High Sens 10.9 ng/L (4.0-60.0) 11/30/23 09:55 Total Protein 4.9 g/dL (6.4-8.2) L 12/02/23 04:10 Albumin 1.7 g/dL (3.4-5.0) L 12/02/23 04:10 Globulin 3.2 g/dL (2.5-4.5) 12/02/23 04:10 Albumin/Globulin Ratio 0.5 Ratio (1.1-2.1) L 12/02/23 04:10 Specimen Type Catherized urine 11/30/23 09:52 Urine Color [place] (YELLOW) 11/30/23 09:52 Urine Appearance Cloudy (CLEAR) 11/30/23 09:52 Urine pH 7.0 (5.0 - 8.0) 11/30/23 09:52 Ur Specific [place] 1.015 (1.000-1.030) 11/30/23 09:52 Urine Protein 3+ (NEGATIVE) 11/30/23 09:52 Urine Glucose (UA) Negative (NEGATIVE) 11/30/23 09:52 Urine Ketones 1+ (NEGATIVE) 11/30/23 09:52 Urine Blood 4+ (NEGATIVE) 11/30/23 09:52 Urine Nitrite Negative (NEGATIVE) 11/30/23 09:52 Urine Bilirubin 1+ (NEGATIVE) 11/30/23 09:52 Urine Urobilinogen 1+ (NORMAL) 11/30/23 09:52 Ur Leukocyte Esterase 3+ (NEGATIVE) 11/30/23 09:52 Urine RBC 3-5 /HPF (0-3) A 11/30/23 09:52 Urine WBC Tntc /HPF (0-5) A 11/30/23 09:52 Ur Squamous Epith Cells Negative /HPF (NEGATIVE) 11/30/23 09:52 Urine Bacteria 4+ /HPF (NEGATIVE) 11/30/23 09:52 Ur Culture Indicated? Yes/culture set up 11/30/23 09:52 Stl Occult Blood (IFOB) Negative (NEGATIVE) 11/30/23 13:40 Urine Opiates Screen Negative (NEG=<300) 11/30/23 09:52 Urine Methadone Screen Negative (NEG=<300) 11/30/23 09:52 Ur Barbiturates Screen Negative (NEG=<200) 11/30/23 09:52 Ur Phencyclidine Scrn Negative (NEG=<25) 11/30/23 09:52 Ur Amphetamines Screen Negative (NEG=<1000) 11/30/23 09:52 U Benzodiazepines Scrn Negative (NEG=<200) 11/30/23 09:52 Urine Cocaine Screen Negative (NEG=<300) 11/30/23 09:52 U Marijuana (THC) Screen Negative (NEG=<50) 11/30/23 09:52 - Plan (1) Pneumonia Status: Acute Qualifiers: Pneumonia type: due to unspecified organism Laterality: bilateral Lung lo cation: lower lobe of lung Qualified Code(s): J18.9 - Pneumonia, unspecified organism Plan: NORMAL SALINE AT 125 ML/HR, ROCEPHIN 1G IV DAILY, ALBUMIN 25% IV DAILY, MORPHINE 2MG IV Q4H PRN, DUONEBS TID, OTBS ACHS, HUMULIN R SLIDING SCALE. RESUME HOME MEDS (2) Urinary tract infection Status: Acute Qualifiers: Urinary tract infection type: acute cystitis (3) CVA (cerebral vascular accident) Status: Acute Qualifiers: CVA mechanism: unspecified Qualified Code(s): I63.9 - Cerebral infarction, unspecified (4) Generalized weakness Status: Acute (5) Hypotension Status: Acute Qualifiers: Hypotension type: unspecified hypotension type Qualified Code(s): I95.9 - Hypotension, unspecified (6) Hypomagnesemia Status: Acute (7) Hypoalbuminemia Status: Acute (8) Hyperlipidemia Status: Chronic Qualifiers: Hyperlipidemia type: mixed hyperlipidemia Qualified Code(s): E78.2 - Mixed hyperlipidemia (9) Dementia Status: Chronic Qualifiers: Dementia type: unspecified type Dementia severity: unspecified severity Dementia behavioral or psychological symptom: unspecified whether behavioral, psychotic, or mood disturbance or anxiety Qualified Code(s): F03.90 - Unspecified dementia, unspecified severity, without behavioral disturbance, psychotic disturbance, mood disturbance, and anxiety (10) Hypothyroidism Status: Chronic Qualifiers: Hypothyroidism type: acquired Qualified Code(s): E03.9 - Hypothyroidism, unspecified (11) Anemia Status: Chronic Qualifiers: Anemia type: unspecified type Qualified Code(s): D64.9 - Anemia, unspecified (12) Diabetes mellitus Status: Chronic Qualifiers: Diabetes mellitus type: type 2 Diabetes mellitus custodial insulin use: with custodial use Diabetes mellitus complication status: with hyperglycemia Qualified Code(s): E11.65 - Type 2 diabetes mellitus with hyperglycemia; Z79.4 - prison (current) use of insulin
[2023-12-02] MEDS: ALBUMIN HUMAN 25%- 100 ML 100 ML IV SCH (18:45)
[2023-12-03 05:03] LABS: BASOPHILS % (AUTO) 0.8 % (0.2-1.0); EOSINOPHILS # (AUTO) 0.2 x10^3/uL (0.0-0.2); EOSINOPHILS % (AUTO) 3.3 % (0.9-2.9); HEMATOCRIT 25.4 % (42.0-54.0); HEMOGLOBIN 8.4 g/dL (13.5-18.0); LYMPHOCYTES # (AUTO) 0.8 X10^3/uL (1.3-2.9); LYMPHOCYTES % (AUTO) 16.2 % (21.0-51.0); MEAN CORPUSCULAR HEMOGLOBIN 29.6 pg (27.0-34.0); MEAN CORPUSCULAR HGB CONC 33.2 g/dL (33.0-35.0); MEAN CORPUSCULAR VOLUME 89.2 fL (80.0-100.0); MEAN PLATELET VOLUME 11.6 fL (7.4-11.0); MONOCYTES # (AUTO) 0.4 x10^3/uL (0.3-0.8); MONOCYTES % (AUTO) 7.3 % (0.0-13.0); NEUTROPHILS # (AUTO) 3.6 x10^3/uL (2.2-4.8); NEUTROPHILS % (AUTO) 72.4 % (42.0-75.0); PLATELET COUNT 111 X10^3/uL (150.0-450.0); RED BLOOD COUNT 2.84 X10^6/uL (4.7-6.0); RED CELL DISTRIBUTION WIDTH 14.1 % (11.6-16.5)
[2023-12-03 05:10] LABS: ALANINE AMINOTRANSFERASE 20 Units/L (12-78); ALBUMIN 2.1 g/dL (3.4-5.0); ALKALINE PHOSPHATASE 66 Units/L (46-116); ASPARTATE AMINO TRANSFERASE 18 Units/L (15-37); BLOOD UREA NITROGEN 18 mg/dL (7-18); CALCIUM 7.4 mg/dL (8.5-10.1); CARBON DIOXIDE 25.6 mmol/L (21-32); CHLORIDE 111 mmol/L (98-107); COR CA(FOR HYPOALB) 8.9 mg/dL (8.5-10.1); COR NA(FOR HYPERGLY) 146 mmol/L (136-145); CREATININE 1.11 mg/dL (0.70-1.30); GLUCOSE 176 mg/dL (65-99); POTASSIUM 3.2 mmol/L (3.5-5.1); SODIUM 144 mmol/L (136-145); TOTAL PROTEIN 5.2 g/dL (6.4-8.2); eGFR NON BLACK RACES > 60 (>60)
[2023-12-03] MEDS ORDERED: CONSULT PHARMACY - POTASSIUM & MAGNESIUM XX SCH (07:00)
[2023-12-03] MEDS: MAG-OX TAB PO SCH (10:10)
[2023-12-03] MEDS: K-DUR TAB 20 MEQ PO SCH (10:10)
--- NOTE | 2023-12-03 10:21 | RAD ---
EXAM: CHEST, 1 VIEW HISTORY: PNEUMONIA; UTI, AMS, CVA, BEST IMAGES POSSIBLE COMPARISON: None. FINDINGS: Heart: Borderline heart size. Lungs: No acute airspace disease. Pleural space: no pneumothorax or effusion. Bones: the bony thorax appears age appropriate. IMPRESSION: 1. Borderline heart size. 2. Right lower lobe nonspecific air space infiltrate new. THIS IS AN ELECTRONICALLY VERIFIED FINAL REPORT 12/03/2023 10:18 AM - Electronically signed by Juliocesar Saldaña DO
[2023-12-03] MEDS: LASIX IVP SCH (14:13)
[2023-12-03] MEDS: POTASSIUM CHLORIDE LIQ PO ONE (14:13)
[2023-12-03] MEDS: MAG-OX TAB ONE (15:13)
[2023-12-03] MEDS: ATIVAN TAB 1 MG PO ONE (21:17)
[2023-12-03] MEDS: FLONASE NASAL SPRAY ENOSTRIL SCH (21:19)
[2023-12-04 04:31] VITALS: PULSE 60; RESP 18
[2023-12-04 05:56] LABS: BASOPHILS % (AUTO) 0.6 % (0.2-1.0); EOSINOPHILS # (AUTO) 0.2 x10^3/uL (0.0-0.2); EOSINOPHILS % (AUTO) 2.6 % (0.9-2.9); HEMATOCRIT 25.6 % (42.0-54.0); HEMOGLOBIN 8.5 g/dL (13.5-18.0); LYMPHOCYTES % (AUTO) 14.4 % (21.0-51.0); MEAN CORPUSCULAR HEMOGLOBIN 29.7 pg (27.0-34.0); MEAN CORPUSCULAR HGB CONC 33.1 g/dL (33.0-35.0); MEAN CORPUSCULAR VOLUME 89.8 fL (80.0-100.0); MEAN PLATELET VOLUME 11.6 fL (7.4-11.0); MONOCYTES # (AUTO) 0.5 x10^3/uL (0.3-0.8); MONOCYTES % (AUTO) 6.7 % (0.0-13.0); NEUTROPHILS # (AUTO) 5.3 x10^3/uL (2.2-4.8); NEUTROPHILS % (AUTO) 75.7 % (42.0-75.0); PLATELET COUNT 118 X10^3/uL (150.0-450.0); RED BLOOD COUNT 2.85 X10^6/uL (4.7-6.0); RED CELL DISTRIBUTION WIDTH 14.1 % (11.6-16.5); WHITE BLOOD COUNT 6.9 X10^3/uL (3.6-10.0)
[2023-12-04 06:17] LABS: ALANINE AMINOTRANSFERASE 21 Units/L (12-78); ALBUMIN 2.4 g/dL (3.4-5.0); ALKALINE PHOSPHATASE 65 Units/L (46-116); ASPARTATE AMINO TRANSFERASE 13 Units/L (15-37); BLOOD UREA NITROGEN 12 mg/dL (7-18); CALCIUM 7.6 mg/dL (8.5-10.1); CARBON DIOXIDE 27.4 mmol/L (21-32); CHLORIDE 108 mmol/L (98-107); COR CA(FOR HYPOALB) 8.9 mg/dL (8.5-10.1); COR NA(FOR HYPERGLY) 145 mmol/L (136-145); CREATININE 1.19 mg/dL (0.70-1.30); GLUCOSE 149 mg/dL (65-99); POTASSIUM 3.3 mmol/L (3.5-5.1); SODIUM 144 mmol/L (136-145); TOTAL PROTEIN 5.6 g/dL (6.4-8.2); eGFR NON BLACK RACES > 60 (>60)
[2023-12-04] MEDS: CONSULT PHARMACY - POTASSIUM & MAGNESIUM XX SCH (07:09)
--- NOTE | 2023-12-04 07:20 | RAD ---
EXAM:Portable chestHISTORY:PneumoniaCOMPARISON: [id number]:Patient is rotated to the left. Patient is status post median sternotomy and CABG. Heart size is difficult to assess due to rotation. No definite acute infiltrates identified. Bony thorax is unremarkable.IMPRESSION:No definite infiltratesTHIS IS AN ELECTRONICALLY VERIFIED FINAL REPORT12/04/2023 7:17 AM - Electronically signed by Dragan Watkins MD
[2023-12-04 07:50] VITALS: BP 145/65; TEMP 97.9; O2SAT 95
[2023-12-04] MEDS ORDERED: K-DUR TAB 20 MEQ PO SCH (09:00)
[2023-12-04] MEDS ORDERED: MAG-OX TAB PO SCH (09:00)
[2023-12-04] MEDS ORDERED: [UNRECOGNIZED DRUG - OTHER] IV NR (10:00)
[2023-12-04] MEDS ORDERED: MAGNESIUM SULFATE IV NR (10:00)
[2023-12-04] MEDS ORDERED: POTASSIUM CHLORIDE IV NR (10:00)
--- NOTE | 2023-12-10 17:21 | PCM.DCPLAN ---
DISCHARGE SUMMARY Admission Date Date of Admission: 11/30/23 Discharge Date Discharge Date: 12/04/23 Admission Diagnoses (1) Pneumonia: Status: Acute (2) Urinary tract infection: Status: Acute (3) CVA (cerebral vascular accident): Status: Acute (4) Generalized weakness: Status: Acute (5) Hypotension: Status: Acute (6) Hypomagnesemia: Status: Acute (7) Hypoalbuminemia: Status: Acute (8) Hyperlipidemia: Status: Chronic (9) Dementia: Status: Chronic (10) Hypothyroidism: Status: Chronic (11) Anemia: Status: Chronic (12) Diabetes mellitus: Status: Chronic Discharge Diagnoses Discharge Diagnosis: same as admission, resolved hypotension, CONTINUE: UTI, pneumonia Discharge Medications Discharge Medications: Home Medication List acetaminophen 325 mg tablet (Tylenol) 650 mg PO Q4H PRN 11/30/23 [History] amino acids-protein hydrolysate 15 gram-100 kcal/30 mL oral liquid (Pro-Stat Sugar Free) 1 ea PO DAILY 11/30/23 [History] donepezil 10 mg tablet 10 mg PO QDAY 11/30/23 [History] famotidine 20 mg tablet 20 mg PO QDAY 11/30/23 [History] fluticasone propionate 50 mcg/actuation nasal spray,suspension 1 spray intranasal BID 11/30/23 [History] gabapentin 300 mg capsule 300 mg PO BID 11/30/23 [History] insulin degludec 100 unit/mL subcutaneous solution (Tresiba U-100 Insulin) 5 unit subcut QHS 11/30/23 [History] insulin degludec 100 unit/mL subcutaneous solution (Tresiba U-100 Insulin) 10 unit subcut QDAY 11/30/23 [History] insulin regular human 100 unit/mL injection solution (Novolin R Regular U-100 Insulin) 1 sliding scale dose subcut USEASDIRECTD 11/30/23 [History] levothyroxine 125 mcg tablet 125 mcg PO QDAY 11/30/23 [History] lorazepam 1 mg tablet 1 mg PO QDAY 11/30/23 [History] magnesium oxide 400 mg PO BID 11/30/23 [History] melatonin 5 mg tablet 5 mg PO HS 11/30/23 [History] multivit-minerals no.73-iron fumarate 106 mg-folic acid 1 mg capsule 1 cap PO BID 11/30/23 [History] multivitamin 1 tab PO QDAY 11/30/23 [History] nitrofurantoin monohydrate/macrocrystals 100 mg capsule 100 mg PO BID 11/30/23 [History] peg [id number]-iaplkgmurhia-ensmqoop 1 %-0.2 %-0.2 % eye drops (Artificial Tears ([id number])) 1 drp ophthalmic (eye) BID 11/30/23 [History] risperidone 0.5 mg tablet (Risperdal) 0.5 mg PO BID 11/30/23 [History] rosuvastatin 40 mg tablet (Crestor) 40 mg PO QDAY 11/30/23 [History] Prescriptions: Hospital Course Vital Signs: Vital Signs Temperature 97.9 F Pulse Rate [Left] 60 Respiratory Rate 18 Blood Pressure [Right Arm] 145/65 O2 Sat by Pulse Oximetry 95 Latest Lab Results: Laboratory Last Values WBC 6.9 X10^3/uL (3.6-10.0) 12/04/23 05:13 RBC 2.85 X10^6/uL (4.7-6.0) L 12/04/23 05:13 Hgb 8.5 g/dL (13.5-18.0) L 12/04/23 05:13 Hct 25.6 % (42.0-54.0) L 12/04/23 05:13 MCV 89.8 fL (80.0-100.0) 12/04/23 05:13 MCH 29.7 pg (27.0-34.0) 12/04/23 05:13 MCHC 33.1 g/dL (33.0-35.0) 12/04/23 05:13 RDW 14.1 % (11.6-16.5) 12/04/23 05:13 Plt Count 118 X10^3/uL (150.0-450.0) L 12/04/23 05:13 MPV 11.6 fL (7.4-11.0) H 12/04/23 05:13 Neut % (Auto) 75.7 % (42.0-75.0) H 12/04/23 05:13 Lymph % (Auto) 14.4 % (21.0-51.0) L 12/04/23 05:13 [place] % (Auto) 6.7 % (0.0-13.0) 12/04/23 05:13 Eos % (Auto) 2.6 % (0.9-2.9) 12/04/23 05:13 Baso % (Auto) 0.6 % (0.2-1.0) 12/04/23 05:13 Neut # (Auto) 5.3 x10^3/uL (2.2-4.8) H 12/04/23 05:13 Lymph # (Auto) 1.0 X10^3/uL (1.3-2.9) L 12/04/23 05:13 [place] # (Auto) 0.5 x10^3/uL (0.3-0.8) 12/04/23 05:13 Eos # (Auto) 0.2 x10^3/uL (0.0-0.2) 12/04/23 05:13 Baso # (Auto) 0.0 X10^3/uL (0.0-0.1) 12/04/23 05:13 Absolute Nucleated RBC 0.0 /100WBC 12/04/23 05:13 PT 13.0 SECONDS (11.8-14.3) 11/30/23 09:55 INR Target Range - 11/30/23 09:55 INR 1.00 (0.8-1.3) 11/30/23 09:55 Sodium 144 mmol/L (136-145) 12/04/23 05:13 Corrected Sodium 145 mmol/L (136-145) 12/04/23 05:13 Potassium 3.3 mmol/L (3.5-5.1) L 12/04/23 05:13 Chloride 108 mmol/L (98-107) H 12/04/23 05:13 Carbon Dioxide 27.4 mmol/L (21-32) 12/04/23 05:13 BUN 12 mg/dL (7-18) 12/04/23 05:13 Creatinine 1.19 mg/dL (0.70-1.30) 12/04/23 05:13 Est GFR (MDRD) Af Amer > 60 (>60) 12/04/23 05:13 Est GFR (MDRD) Non-Af > 60 (>60) 12/04/23 05:13 Glucose 149 mg/dL (65-99) H 12/04/23 05:13 POC Glucose (mg/dL) 141 mg/dL (65-99) H 12/04/23 05:29 Lactic Acid 1.4 mmol/L (0.4-2.0) 11/30/23 10:25 Calcium 7.6 mg/dL (8.5-10.1) L 12/04/23 05:13 Corrected Calcium 8.9 mg/dL (8.5-10.1) 12/04/23 05:13 Magnesium 1.6 mg/dL (2.0-2.9) L 12/04/23 05:13 Total Bilirubin 0.50 mg/dL (0.2-1.0) 12/04/23 05:13 AST 13 Units/L (15-37) L 12/04/23 05:13 ALT 21 Units/L (12-78) 12/04/23 05:13 Alkaline Phosphatase 65 Units/L (46-116) 12/04/23 05:13 Creatine Kinase 304 Units/L (39-308) 11/30/23 09:55 Troponin I High Sens 10.9 ng/L (4.0-60.0) 11/30/23 09:55 Total Protein 5.6 g/dL (6.4-8.2) L 12/04/23 05:13 Albumin 2.4 g/dL (3.4-5.0) L 12/04/23 05:13 Globulin 3.2 g/dL (2.5-4.5) 12/04/23 05:13 Albumin/Globulin Ratio 0.8 Ratio (1.1-2.1) L 12/04/23 05:13 Specimen Type Catherized urine 11/30/23 09:52 Urine Color [place] (YELLOW) 11/30/23 09:52 Urine Appearance Cloudy (CLEAR) 11/30/23 09:52 Urine pH 7.0 (5.0 - 8.0) 11/30/23 09:52 Ur Specific [place] 1.015 (1.000-1.030) 11/30/23 09:52 Urine Protein 3+ (NEGATIVE) 11/30/23 09:52 Urine Glucose (UA) Negative (NEGATIVE) 11/30/23 09:52 Urine Ketones 1+ (NEGATIVE) 11/30/23 09:52 Urine Blood 4+ (NEGATIVE) 11/30/23 09:52 Urine Nitrite Negative (NEGATIVE) 11/30/23 09:52 Urine Bilirubin 1+ (NEGATIVE) 11/30/23 09:52 Urine Urobilinogen 1+ (NORMAL) 11/30/23 09:52 Ur Leukocyte Esterase 3+ (NEGATIVE) 11/30/23 09:52 Urine RBC 3-5 /HPF (0-3) A 11/30/23 09:52 Urine WBC Tntc /HPF (0-5) A 11/30/23 09:52 Ur Squamous Epith Cells Negative /HPF (NEGATIVE) 11/30/23 09:52 Urine Bacteria 4+ /HPF (NEGATIVE) 11/30/23 09:52 Ur Culture Indicated? Yes/culture set up 11/30/23:52 Stl Occult Blood (IFOB) Negative (NEGATIVE) 11/30/23 13:40 Urine Opiates Screen Negative (NEG=<300) 11/30/23 09:52 Urine Methadone Screen Negative (NEG=<300) 11/30/23 09:52 Ur Barbiturates Screen Negative (NEG=<200) 11/30/23 09:52 Ur Phencyclidine Scrn Negative (NEG=<25) 11/30/23 09:52 Ur Amphetamines Screen Negative (NEG=<1000) 11/30/23 09:52 U Benzodiazepines Scrn Negative (NEG=<200) 11/30/23 09:52 Urine Cocaine Screen Negative (NEG=<300) 11/30/23 09:52 U Marijuana (THC) Screen Negative (NEG=<50) 11/30/23 09:52 Hospital Course: The patient is a 78-year-old white male who presented to ER with hypoxia, hypotension, and altered mental status-responsive to painful stimuli only. He is a resident at [facility] and presented to ER by nursing staff. Nursing staff reported that he was given ativan 1mg PO the night prior for agitation. Also reported that he was on treatment for UTI with macrobid. Admission labs showed dehydration- BUN 48/Creatinine 2.09. Admission chest xray revealed bibasilar pneumonia. Urine culture was obtained and grew out Proteus, sensitive to rocephin- which he has been on since admission. He has been on IV NS with much improvement in renal function. BUN 12/Creatinine 1.19 this morning. He is a type 2 diabetic and blood sugar has been around 150 during stay. Earlier labs did show hypokalemia and he has been treated with potassium replacement. Potassium at 3.3 this morning. Repeat chest xray this morning showed no definate infilatrates. His blood pressure is much improved-145/65. Overall, the patient's condition has improved and he is much more awake and alert. He does have chronic dementia and has limited verbal communication at baseline. We will allow him to discharge back to [facility]. Please see discharge plan for list of discharge medications and modifications that we made, electronic medical record for diagnostic tests and labs. The patient, as well as [facility] nursing staff, were instructed for patient to return to ER if condition changed or worsened unexpectedly.
== END 2023-12-04 10:50 | DRG 689 ==
LOC: ER 09:27 → ICU 12:16 → MED/SURG 12-03 17:02
PROVIDERS: ADMIT Internal Medicine; ATTEND Internal Medicine
DX: N39.0 Urinary tract infection, site not specified; R06.02 Shortness of breath; B96.4 Proteus (mirabilis) (morganii) as the cause of diseases classified elsewhere; J18.8 Other pneumonia, unspecified organism; K21.9 Gastro-esophageal reflux disease without esophagitis; E78.2 Mixed hyperlipidemia; Z79.4 Long term (current) use of insulin; I95.89 Other hypotension; Z66 Do not resuscitate; L89.612 Pressure ulcer of right heel, stage 2; R40.4 Transient alteration of awareness; Z86.73 Personal history of transient ischemic attack (TIA), and cerebral infarction without residual deficits; E11.65 Type 2 diabetes mellitus with hyperglycemia; F03.90 Unspecified dementia, unspecified severity, without behavioral disturbance, psychotic disturbance, mood disturbance, and anxiety; L89.623 Pressure ulcer of left heel, stage 3; I25.10 Atherosclerotic heart disease of native coronary artery without angina pectoris; E03.8 Other specified hypothyroidism; L89.151 Pressure ulcer of sacral region, stage 1; E83.42 Hypomagnesemia; I63.89 Other cerebral infarction

== ENCOUNTER 2023-12-08 09:26 | Inpatient (IN) ==
--- NOTE | 2023-12-08 09:34 | DR.FEVERAD ---
HPI Time seen Time Seen by Provider: 12/08/23 09:33 HPI Comment HPI Comment: Patient with sent from the correction. According to to the note sent with the patient patient has history of UTI has been on Rocephin. Also has history of renal failure with elevated serum creatinine. Patient was noted to be more drowsy with increased heart rate temperature and was sent to the ER for evaluation. Unable to obtain history from the patient due to being drowsy and also has history of dementia Complaints/Symptoms Chief Complaint Doctor Comments: drowsy COVID-19 Coronavirus symptoms experienced: Fever Nurses notes reviewed Nurses Notes Review: Yes Mode of Arrival Mode of Arrival: Stretcher Timing Came on: Gradually PMH PMH Past Medical History: Arthritis, Coronary Artery Disease, Dementia, Diabetes, Dyslipidemia, GERD and Hypothyroidism Past Surgical History: Yes Surgical History: Unknown Family History Family Medical History: Diabetes Mellitus and Hypertension Social History Do you use any recreational Drugs:: No ROS Review of Systems Constitutional: Fever Eyes: No Symptoms Reported Respiratoy: Non-Productive Cough Integumentary: Dryness PE Vital Signs Vitals: Vital Signs Temperature 98.6 F Pulse Rate 111 Pulse Rate 109 Pulse Rate 111 Pulse Rate 108 Pulse Rate 108 Pulse Rate 110 Pulse Rate 105 Pulse Rate 102 Pulse Rate 109 Pulse Rate 113 Pulse Rate 112 Pulse Rate 115 Pulse Rate 113 Pulse Rate 113 Pulse Rate 114 Pulse Rate 111 Pulse Rate 108 Pulse Rate 109 Pulse Rate 112 Pulse Rate 111 Pulse Rate 120 Respiratory Rate 24 Blood Pressure 115/58 Blood Pressure 117/58 Blood Pressure 112/56 Blood Pressure 116/56 Blood Pressure 106/53 Blood Pressure 97/73 Blood Pressure 98/53 Blood Pressure 112/54 Blood Pressure 102/52 Blood Pressure 87/50 Blood Pressure 89/43 O2 Sat by Pulse Oximetry 96 O2 Sat by Pulse Oximetry 99 O2 Sat by Pulse Oximetry 97 O2 Sat by Pulse Oximetry 98 O2 Sat by Pulse Oximetry 96 O2 Sat by Pulse Oximetry 99 O2 Sat by Pulse Oximetry 97 O2 Sat by Pulse Oximetry 99 O2 Sat by Pulse Oximetry 99 O2 Sat by Pulse Oximetry 100 O2 Sat by Pulse Oximetry 100 O2 Sat by Pulse Oximetry 100 O2 Sat by Pulse Oximetry 99 O2 Sat by Pulse Oximetry 98 O2 Sat by Pulse Oximetry 98 O2 Sat by Pulse Oximetry 98 O2 Sat by Pulse Oximetry 100 O2 Sat by Pulse Oximetry 100 O2 Sat by Pulse Oximetry 100 O2 Sat by Pulse Oximetry 94 O2 Sat by Pulse Oximetry 76 O2 Sat by Pulse Oximetry 88 General Limitations: Other (Limitation due to drowsiness and history of dementia) General Appearance: Lethargic Head Head Exam: Normal Inspection and Atraumatic Eyes Eye exam: Normal Appearance and PERRL ENT ENT Exam: Mucous Membranes Dry Neck Neck Exam: Normal Inspection Respiratory Respiratory Exam: Normal Lung Sounds Bilat Respiratory Exam: Bilateral: Clear to Auscultation Cardiovascular Cardiovascular Exam: +S1 and +S2 Abdominal Exam Abdominal Exam: Normal Bowel Sounds and Soft Extremities Extremities Exam: Normal Inspection Skin Skin Exam: Dry MDM Additional Information Findings: Dehydration,hypoxia, drowsiness possibly secondary to medication COURSE Treatment Treatment: CBC CMP, IV fluids respiratory panel, oxygen supplemental to maintain oxygen saturation over 90% Reevaluation 1st: Improved ROR Labs Reviewed Laboratory Results Reviewed?: Yes 12/08/23 09:54 12/08/23 09:54 Laboratory: WBC 7.0 X10^3/uL (3.6-10.0) 12/08/23 09:54 RBC 3.36 X10^6/uL (4.7-6.0) L 12/08/23 09:54 Hgb 9.9 g/dL (13.5-18.0) L 12/08/23 09:54 Hct 30.0 % (42.0-54.0) L 12/08/23 09:54 MCV 89.2 fL (80.0-100.0) 12/08/23 09:54 MCH 29.3 pg (27.0-34.0) 12/08/23 09:54 MCHC 32.9 g/dL (33.0-35.0) L 12/08/23 09:54 RDW 14.1 % (11.6-16.5) 12/08/23 09:54 Plt Count 162 X10^3/uL (150.0-450.0) 12/08/23 09:54 MPV 11.3 fL (7.4-11.0) H 12/08/23 09:54 Neut % (Auto) 78.9 % (42.0-75.0) H 12/08/23 09:54 Lymph % (Auto) 10.4 % (21.0-51.0) L 12/08/23 09:54 [place] % (Auto) 9.6 % (0.0-13.0) 12/08/23 09:54 Eos % (Auto) 0.4 % (0.9-2.9) L 12/08/23 09:54 Baso % (Auto) 0.7 % (0.2-1.0) 12/08/23 09:54 Neut # (Auto) 5.5 x10^3/uL (2.2-4.8) H 12/08/23 09:54 Lymph # (Auto) 0.7 X10^3/uL (1.3-2.9) L 12/08/23 09:54 [place] # (Auto) 0.7 x10^3/uL (0.3-0.8) 12/08/23 09:54 Eos # (Auto) 0.0 x10^3/uL (0.0-0.2) 12/08/23 09:54 Baso # (Auto) 0.1 X10^3/uL (0.0-0.1) 12/08/23 09:54 Absolute Nucleated RBC 0.1 /100WBC 12/08/23 09:54 Sodium 138 mmol/L (136-145) 12/08/23 09:54 Corrected Sodium 139 mmol/L (136-145) 12/08/23 09:54 Potassium 4.1 mmol/L (3.5-5.1) 12/08/23 09:54 Chloride 101 mmol/L (98-107) 12/08/23 09:54 Carbon Dioxide 29.3 mmol/L (21-32) 12/08/23 09:54 BUN 31 mg/dL (7-18) H 12/08/23 09:54 Creatinine 1.98 mg/dL (0.70-1.30) H 12/08/23 09:54 Est GFR (MDRD) Af Amer 42 (>60) L 12/08/23 09:54 Est GFR (MDRD) Non-Af 35 (>60) L 12/08/23 09:54 Glucose 140 mg/dL (65-99) H 12/08/23 09:54 Calcium 8.4 mg/dL (8.5-10.1) L 12/08/23 09:54 Corrected Calcium 9.8 mg/dL (8.5-10.1) 12/08/23 09:54 Total Bilirubin 0.60 mg/dL (0.2-1.0) 12/08/23 09:54 AST 23 Units/L (15-37) 12/08/23 09:54 ALT 19 Units/L (12-78) 12/08/23 09:54 Alkaline Phosphatase 70 Units/L (46-116) 12/08/23 09:54 Total Protein 5.8 g/dL (6.4-8.2) L 12/08/23 09:54 Albumin 2.3 g/dL (3.4-5.0) L 12/08/23 09:54 Globulin 3.5 g/dL (2.5-4.5) 12/08/23 09:54 Albumin/Globulin Ratio 0.7 Ratio (1.1-2.1) L 12/08/23 09:54 SARS-CoV-2 (PCR) Negative (NEGATIVE) 12/08/23 09:54 Influenza Type A (PCR) Positive (NEGATIVE) A 12/08/23 09:54 Influenza Type B (PCR) Negative (NEGATIVE) 12/08/23 09:54 RSV (PCR) Negative (NEGATIVE) 12/08/23 09:54 Opioid Opioid Risk Tool Age (Christopher box if 16-45): No History of Preadolescent Sexual Abuse: No Total: 0 Total Score Risk Category: Low Risk Copyright: Ken BENAVIDEZ predicting aberrant behaviors Discharge Plan Diagnosis Discharge Problem: Acute dehydration, Influenza A, Acute on chronic kidney failure, Drowsy, Dependence on supplemental oxygen Discharge Plan Patient Disposition: ADMITTED INPATIENT Condition: Stable Prescriptions: No Action lisinopril 10 MG tablet 10 mg PO DAILY tamsulosin 0.4 MG capsule,extended release 24hr 0.4 mg PO HS Qty: 30 0RF levothyroxine [Synthroid] 150 mcg Tablet 150 mcg PO QDAY ceftriaxone in dextrose,iso-os 1 gram/50 mL piggyback 1 g IV DAILY Rx Instructions: started on 12/04/23, ends on 12/11/23 folic acid 1 mg Tablet 1 mg PO DAILY donepezil 10 mg tablet 10 mg PO QPM famotidine 20 mg tablet 20 mg PO QPM gabapentin 300 mg capsule 300 mg PO BID lorazepam 1 mg tablet 1 mg PO QPM fluticasone propionate 50 mcg/actuation spray,suspension 1 spray INTRANASAL BID Artificial Tears([id number]) 1-0.2-0.2 % drops 1 drp OPHTHALMIC (EYE) BID Patient Comments: [NO ORIGINAL SIG] multivitamin [Multi-Vitamin] Tablet 1 tab PO QDAY acetaminophen [Tylenol] 325 mg Tablet 650 mg PO Q4H PRN Novolin R Regular U100 Insulin 100 unit/mL Solution 1 sliding scale dose SUBCUT USEASDIRECTD risperidone [Risperdal] 0.5 mg Tablet 1 mg PO BID rosuvastatin [Crestor] 40 mg Tablet 40 mg PO QPM melatonin 5 mg Tablet 5 mg PO HS Ferrocite Plus 106 mg iron- 1 mg Capsule 1 cap PO BID Pro-Stat Sugar Free 15-100 gram-kcal/30 mL Liquid 1 ea PO DAILY magnesium oxide 200 mg magnesium Tablet 400 mg PO BID insulin degludec [Tresiba U-100 Insulin] 100 unit/mL Solution 10 unit SUBCUT QDAY insulin degludec [Tresiba U-100 Insulin] 100 unit/mL Solution 5 unit SUBCUT QHS Health Concerns: Post Hospitalization: new medications and changes needed to prevent readmission or further decline. Pt educated and given instructions on all concerns. Plan of Treatment: Continue with present treatment and follow up plan. Pt is to keep follow up appointment as instructed and take medications as ordered. Orders to Discharge Patient Discharge Orders: Transfer (Routine); Ordered 12/08/23 Ordered By: Jose Pack Follow ups/Referrals Follow ups/Referrals: CRISTIN SUNG [Primary Care Provider] - 3 days Instructions Stand Alone Forms: Post Hospital Follow Up Care ADDITIONAL NOTES Additional Notes Additional Notes: spoke with Dr Van .Pts labs discussed .pT HEART LENY STILL RUNNING BAOVE 100 BP BETTER ,PT STILL DRY MUCOUS EMEMBRABNE ,WITH ACUTE ON CHRONIC RENAL FAILURE .AGREED TOAHVE PATIENT ADMITTED FOR MANAGEMENT
[2023-12-08] MEDS ORDERED: NS 1,000 ML IV 1,000 ML ONE ×2 (09:41→11:46)
[2023-12-08] MEDS: NS 1,000 ML IV 1,000 ML IV ONE ×2 (09:45→11:49)
[2023-12-08 10:00] LABS: PLATELET COUNT 162 X10^3/uL (150.0-450.0); RED CELL DISTRIBUTION WIDTH 14.1 % (11.6-16.5)
[2023-12-08 10:03] LABS: BASOPHILS # (AUTO) 0.1 X10^3/uL (0.0-0.1); BASOPHILS % (AUTO) 0.7 % (0.2-1.0); EOSINOPHILS % (AUTO) 0.4 % (0.9-2.9); HEMOGLOBIN 9.9 g/dL (13.5-18.0); LYMPHOCYTES # (AUTO) 0.7 X10^3/uL (1.3-2.9); LYMPHOCYTES % (AUTO) 10.4 % (21.0-51.0); MEAN CORPUSCULAR HEMOGLOBIN 29.3 pg (27.0-34.0); MEAN CORPUSCULAR HGB CONC 32.9 g/dL (33.0-35.0); MEAN CORPUSCULAR VOLUME 89.2 fL (80.0-100.0); MEAN PLATELET VOLUME 11.3 fL (7.4-11.0); MONOCYTES # (AUTO) 0.7 x10^3/uL (0.3-0.8); MONOCYTES % (AUTO) 9.6 % (0.0-13.0); NEUTROPHILS # (AUTO) 5.5 x10^3/uL (2.2-4.8); NEUTROPHILS % (AUTO) 78.9 % (42.0-75.0); RED BLOOD COUNT 3.36 X10^6/uL (4.7-6.0)
[2023-12-08 10:11] LABS: ALBUMIN 2.3 g/dL (3.4-5.0); CALCIUM 8.4 mg/dL (8.5-10.1); CARBON DIOXIDE 29.3 mmol/L (21-32); COR CA(FOR HYPOALB) 9.8 mg/dL (8.5-10.1); CREATININE 1.98 mg/dL (0.70-1.30); POTASSIUM 4.1 mmol/L (3.5-5.1); TOTAL PROTEIN 5.8 g/dL (6.4-8.2)
--- NOTE | 2023-12-08 11:39 | RAD ---
EXAM:AP chestHISTORY:Cough and feverCOMPARISON:12/04/2023FINDINGS:Heart size normal with sternal wires. Areas of linear atelectasis noted adjacent to the left lower cardiac margin. There is no evidence for consolidation/pneumonia or pleural fluid.IMPRESSION:No acute findings except for mild subsegmental atelectasis left lower lung.THIS IS AN ELECTRONICALLY VERIFIED FINAL REPORT12/08/2023 11:36 AM - Electronically signed by Bj Butler MD
[2023-12-08 14:30] VITALS: BMI 22.2
[2023-12-08] MEDS: NS 1,000 ML IV 1,000 ML IV SCH (16:03)
[2023-12-08] MEDS ORDERED: PHARMACY CONSULT LTC MEDICATIONS XX SCH (17:00)
[2023-12-08] MEDS: CRESTOR TAB 10 MG PO SCH (22:27)
[2023-12-08] MEDS: MAG-OX TAB PO SCH (22:27)
[2023-12-08] MEDS: ARTIFICIAL TEARS DROPS OP SCH (22:28)
[2023-12-08] MEDS: FLOMAX PO SCH (22:28)
[2023-12-09 04:42] LABS: HEMOGLOBIN 8.7 g/dL (13.5-18.0); LYMPHOCYTES # (AUTO) 0.3 X10^3/uL (1.3-2.9)
[2023-12-09 04:47] LABS: EOSINOPHILS % (AUTO) 0.1 % (0.9-2.9); HEMATOCRIT 26.3 % (42.0-54.0); MEAN CORPUSCULAR HGB CONC 33.1 g/dL (33.0-35.0); MONOCYTES # (AUTO) 0.5 x10^3/uL (0.3-0.8); NEUTROPHILS % (AUTO) 90.5 % (42.0-75.0); PLATELET COUNT 126 X10^3/uL (150.0-450.0)
[2023-12-09 04:51] LABS: BLOOD UREA NITROGEN 32 mg/dL (7-18); CALCIUM 7.8 mg/dL (8.5-10.1); CARBON DIOXIDE 24.7 mmol/L (21-32); CHLORIDE 107 mmol/L (98-107); CREATININE 1.37 mg/dL (0.70-1.30); GLUCOSE 104 mg/dL (65-99); POTASSIUM 3.6 mmol/L (3.5-5.1); SODIUM 141 mmol/L (136-145); eGFR NON BLACK RACES 53 (>60)
[2023-12-09 04:52] LABS: BASOPHILS % (AUTO) 0.3 % (0.2-1.0); LYMPHOCYTES % (AUTO) 3.6 % (21.0-51.0); MEAN CORPUSCULAR HEMOGLOBIN 29.6 pg (27.0-34.0); MEAN CORPUSCULAR VOLUME 89.6 fL (80.0-100.0); MEAN PLATELET VOLUME 10.9 fL (7.4-11.0); MONOCYTES % (AUTO) 5.5 % (0.0-13.0); NEUTROPHILS # (AUTO) 7.8 x10^3/uL (2.2-4.8); RED BLOOD COUNT 2.93 X10^6/uL (4.7-6.0); RED CELL DISTRIBUTION WIDTH 14.4 % (11.6-16.5); WHITE BLOOD COUNT 8.6 X10^3/uL (3.6-10.0)
[2023-12-09 05:10] LABS: BAND NEUTROPHILS % 13 % (0-10); PLATELET MORPHOLOGY COMMENT NORMAL (NORMAL)
[2023-12-09] MEDS: SYNTHROID 150 mcg TAB PO SCH (05:53)
[2023-12-09] MEDS: CONSULT PHARMACY - POTASSIUM & MAGNESIUM XX SCH (08:10)
[2023-12-09] MEDS ORDERED: K-DUR TAB 20 MEQ PO SCH (09:00)
--- NOTE | 2023-12-09 11:39 | DR.H&P ---
H&P History & Physical for Day of: H&P Date: 12/09/23 Chief Complaint Chief Complaint: lethargy, low BP Allergies Allergies Allergy/AdvReac Type Severity Reaction Status Date / Time No Known Drug Allergies Allergy Verified 12/08/23 09:32 History of Present Illness History of Present Illness: Mr Mckeon is a 78y/o male with multiple co- morbidities who presented from [facility] with hypotension and lethargy. He was recently admitted for UTI and hypotension [facility] In the ER, patient's BP improved to 90/50s with fluids. CXR showed left lower lobe atelectasis. He tested positive for FLU, negative for COVID-19. He was admitted for further management. Patient is on a lot of sedating medications such as risperidone, gabapentin, lorazepam which were all held. Patient was more responsive later in the day yesterday. This morning, he was noted to be more lethargic and did not take his PO medications. He was also noted to have low O2 sats, placed on NRB. During rounds, he did open his eyes and move a little. His BP was 94/55. He remains on NRB with sats 100%. Patient is DNR. Labs/imaging reviewed - Hgb 8.7 Plt 126 BUN/Cr: 32/1.37 - FLU + - CXR reviewed Plan: Admit with flu precautions. Continue IV hydration at 100cc/hr. Patient having waxing and waning responsiveness. See if patient can tolerate PO meds when more awake & alert. Continue to hold benzos and other sedating medications. He also has a hx of dementia. Continue current medications. Monitor AM labs/imaging. DNR order signed and placed in chart. Past Medical History Past Medical History: Arthritis, Coronary Artery Disease, Dementia, Diabetes, Dyslipidemia, GERD and Hypothyroidism Past Surgical History Surgical History: Unknown Family History Family Medical History: Diabetes Mellitus and Hypertension Social History Does patient currently use any type of tobacco product: No Have you used tobacco products in the last 12 months: No Type of Tobacco Use: None Does any household member use tobacco: No Alcohol Use: None Drug Use: None Medications Home Medications: Home Medications Medication Instructions Recorded Confirmed Type lisinopril 10 mg tablet 10 mg PO DAILY 11/13/14 12/08/23 History folic acid 1 mg tablet 1 mg PO DAILY 10/11/21 12/08/23 History acetaminophen 325 mg tablet 650 mg PO Q4H PRN 11/30/23 12/08/23 History (Tylenol) amino acids-protein hydrolysate 15 1 ea PO DAILY 11/30/23 12/08/23 History gram-100 kcal/30 mL oral liquid (Pro-Stat Sugar Free) donepezil 10 mg tablet 10 mg PO QPM 11/30/23 12/08/23 History famotidine 20 mg tablet 20 mg PO QPM 11/30/23 12/08/23 History fluticasone propionate 50 1 spray intranasal BID 11/30/23 12/08/23 History mcg/actuation nasal spray,suspension gabapentin 300 mg capsule 300 mg PO BID 11/30/23 12/08/23 History insulin degludec 100 unit/mL 5 unit subcut QHS 11/30/23 12/08/23 History subcutaneous solution (Tresiba U-100 Insulin) insulin degludec 100 unit/mL 10 unit subcut QDAY 11/30/23 12/08/23 History subcutaneous solution (Tresiba U-100 Insulin) insulin regular human 100 unit/mL 1 sliding scale dose subcut 11/30/23 12/08/23 History injection solution (Novolin R USEASDIRECTD Regular U-100 Insulin) lorazepam 1 mg tablet 1 mg PO QPM 11/30/23 12/08/23 History magnesium oxide 400 mg PO BID 11/30/23 12/08/23 History melatonin 5 mg tablet 5 mg PO HS 11/30/23 12/08/23 History multivit-minerals no.73-iron 1 cap PO BID 11/30/23 12/08/23 History fumarate 106 mg-folic acid 1 mg capsule multivitamin 1 tab PO QDAY 11/30/23 12/08/23 History peg [id number]-wdxegdcl 1 1 drp ophthalmic (eye) BID 11/30/23 12/08/23 History %-0.2 %-0.2 % eye drops (Artificial Tears ([id number])) risperidone 0.5 mg tablet 1 mg PO BID 11/30/23 12/08/23 History (Risperdal) rosuvastatin 40 mg tablet (Crestor) 40 mg PO QPM 11/30/23 12/08/23 History ceftriaxone 1 gram/50 mL in 1 g IV DAILY 12/08/23 12/08/23 History dextrose (iso-osmot) intravenous piggyback levothyroxine 150 mcg tablet 150 mcg PO QDAY 12/08/23 12/08/23 History (Synthroid) Labs 12/09/23 04:12 12/09/23 04:12 Labs: Laboratory WBC 8.6 X10^3/uL (3.6-10.0) 12/09/23 04:12 RBC 2.93 X10^6/uL (4.7-6.0) L 12/09/23 04:12 Hgb 8.7 g/dL (13.5-18.0) L 12/09/23 04:12 Hct 26.3 % (42.0-54.0) L 12/09/23 04:12 MCV 89.6 fL (80.0-100.0) 12/09/23 04:12 MCH 29.6 pg (27.0-34.0) 12/09/23 04:12 MCHC 33.1 g/dL (33.0-35.0) 12/09/23 04:12 RDW 14.4 % (11.6-16.5) 12/09/23 04:12 Plt Count 126 X10^3/uL (150.0-450.0) L 12/09/23 04:12 Plt Count Comment Decreased (ADEQUATE) 12/09/23 04:12 MPV 10.9 fL (7.4-11.0) 12/09/23 04:12 Neut % (Auto) 90.5 % (42.0-75.0) H 12/09/23 04:12 Lymph % (Auto) 3.6 % (21.0-51.0) L 12/09/23 04:12 [place] % (Auto) 5.5 % (0.0-13.0) 12/09/23 04:12 Eos % (Auto) 0.1 % (0.9-2.9) L 12/09/23 04:12 Baso % (Auto) 0.3 % (0.2-1.0) 12/09/23 04:12 Neut # (Auto) 7.8 x10^3/uL (2.2-4.8) H 12/09/23 04:12 Lymph # (Auto) 0.3 X10^3/uL (1.3-2.9) L 12/09/23 04:12 [place] # (Auto) 0.5 x10^3/uL (0.3-0.8) 12/09/23 04:12 Eos # (Auto) 0.0 x10^3/uL (0.0-0.2) 12/09/23 04:12 Baso # (Auto) 0.0 X10^3/uL (0.0-0.1) 12/09/23 04:12 Absolute Nucleated RBC 0.0 /100WBC 12/09/23 04:12 Total Counted 100 12/09/23 04:12 Neutrophils % (Manual) 79 % (39-76) H 12/09/23 04:12 Band Neutrophils % 13 % (0-10) H 12/09/23 04:12 Lymphocytes % (Manual) 5 % (13-43) L 12/09/23 04:12 Monocytes % (Manual) 3 % (4-9) L 12/09/23 04:12 Plt Morphology Comment Normal (NORMAL) 12/09/23 04:12 RBC Morphology Normal (NORMAL) 12/09/23 04:12 Sodium 141 mmol/L (136-145) 12/09/23 04:12 Corrected Sodium TNP 12/09/23 04:12 Potassium 3.6 mmol/L (3.5-5.1) 12/09/23 04:12 Chloride 107 mmol/L (98-107) 12/09/23 04:12 Carbon Dioxide 24.7 mmol/L (21-32) 12/09/23 04:12 BUN 32 mg/dL (7-18) H 12/09/23 04:12 Creatinine 1.37 mg/dL (0.70-1.30) H 12/09/23 04:12 Est GFR (MDRD) Af Amer > 60 (>60) 12/09/23 04:12 Est GFR (MDRD) Non-Af 53 (>60) L 12/09/23 04:12 Glucose 104 mg/dL (65-99) H 12/09/23 04:12 Calcium 7.8 mg/dL (8.5-10.1) L 12/09/23 04:12 Corrected Calcium 9.8 mg/dL (8.5-10.1) 12/08/23 09:54 Total Bilirubin 0.60 mg/dL (0.2-1.0) 12/08/23 09:54 AST 23 Units/L (15-37) 12/08/23 09:54 ALT 19 Units/L (12-78) 12/08/23 09:54 Alkaline Phosphatase 70 Units/L (46-116) 12/08/23 09:54 Total Protein 5.8 g/dL (6.4-8.2) L 12/08/23 09:54 Albumin 2.3 g/dL (3.4-5.0) L 12/08/23 09:54 Globulin 3.5 g/dL (2.5-4.5) 12/08/23 09:54 Albumin/Globulin Ratio 0.7 Ratio (1.1-2.1) L 12/08/23 09:54 SARS-CoV-2 (PCR) Negative (NEGATIVE) 12/08/23 09:54 Influenza Type A (PCR) Positive (NEGATIVE) A 12/08/23 09:54 Influenza Type B (PCR) Negative (NEGATIVE) 12/08/23 09:54 RSV (PCR) Negative (NEGATIVE) 12/08/23 09:54 Review of Systems Constitutional: Malaise Eyes: No Symptoms Reported ENT: No Symptoms Reported Respiratory: Shortness of Breath Cardiovascular: No Symptoms Reported Gastrointestinal: No Symptoms Reported Musculoskeletal: No Symptoms Reported Skin: No Symptoms Reported Neurological: Other (lethargy) Physical Exam Vital Signs: Vital Signs Temperature 98.8 F Temperature 98.2 F Temperature 97.1 F Temperature 96.2 F Pulse Rate [Left Brachial] 89 Pulse Rate [Left Brachial] 88 Respiratory Rate 20 Respiratory Rate 20 Blood Pressure [Left Arm] 92/55 Blood Pressure [Left Arm] 98/51 O2 Sat by Pulse Oximetry 99 O2 Sat by Pulse Oximetry 93 Oriented: Unable to test Eyes: Normal Nose: Normal Respiratory: Diminished Throughout Cardiovascular: Normal Auscultation: Bowel Sounds: Normal Palpation: Normal Tenderness: Normal Skin: Decreased Turgur and Wound (chronic sacral ulcer and heel wounds ) Musculoskeletal: Motor Deficit Mood Description: Flat Affect: Quiet Speech Pattern: Unable to speak Assessment/Plan (1) Influenza: Status: Acute (2) Anemia: Qualifiers: Anemia type: unspecified type Qualified Code(s): D64.9 - Anemia, unspecified Status: Chronic (3) TATA (acute kidney injury): Status: Acute (4) Acute dehydration: Status: Acute (5) Acute alteration in mental status: Status: Acute (6) Hypotension: Qualifiers: Hypotension type: unspecified hypotension type Qualified Code(s): I95.9 - Hypotension, unspecified Status: Acute (7) Generalized weakness: Status: Acute (8) Dementia: Qualifiers: Dementia behavioral or psychological symptom: unspecified whether behavioral, psychotic, or mood disturbance or anxiety Dementia severity: u nspecified severity Dementia type: unspecified type Qualified Code(s): F03.90 - Unspecified dementia, unspecified severity, without behavioral disturbance, psychotic disturbance, mood disturbance, and anxiety Status: Chronic (9) Thrombocytopenia: Status: Acute Review H&P Reviewed: Yes Patient was examined?: Yes
[2023-12-09] MEDS: TAMIFLU PO SCH (14:04)
[2023-12-10 06:01] LABS: HEMOGLOBIN 8.5 g/dL (13.5-18.0)
[2023-12-10 06:07] LABS: BASOPHILS % (AUTO) 0.2 % (0.2-1.0); EOSINOPHILS % (AUTO) 0.1 % (0.9-2.9); LYMPHOCYTES # (AUTO) 0.7 X10^3/uL (1.3-2.9); LYMPHOCYTES % (AUTO) 6.8 % (21.0-51.0); MEAN CORPUSCULAR HEMOGLOBIN 29.4 pg (27.0-34.0); MEAN CORPUSCULAR HGB CONC 32.7 g/dL (33.0-35.0); MEAN PLATELET VOLUME 10.9 fL (7.4-11.0); MONOCYTES # (AUTO) 0.2 x10^3/uL (0.3-0.8); MONOCYTES % (AUTO) 2.5 % (0.0-13.0); NEUTROPHILS # (AUTO) 9.1 x10^3/uL (2.2-4.8); NEUTROPHILS % (AUTO) 90.4 % (42.0-75.0); PLATELET COUNT 127 X10^3/uL (150.0-450.0); RED BLOOD COUNT 2.89 X10^6/uL (4.7-6.0); RED CELL DISTRIBUTION WIDTH 14.2 % (11.6-16.5)
[2023-12-10 06:10] LABS: ALANINE AMINOTRANSFERASE 29 Units/L (12-78); ALBUMIN 1.7 g/dL (3.4-5.0); ALKALINE PHOSPHATASE 55 Units/L (46-116); ASPARTATE AMINO TRANSFERASE 72 Units/L (15-37); BLOOD UREA NITROGEN 31 mg/dL (7-18); CALCIUM 7.8 mg/dL (8.5-10.1); CARBON DIOXIDE 23.1 mmol/L (21-32); CHLORIDE 109 mmol/L (98-107); COR CA(FOR HYPOALB) 9.6 mg/dL (8.5-10.1); CREATININE 1.22 mg/dL (0.70-1.30); GLUCOSE 95 mg/dL (65-99); MAGNESIUM 1.6 mg/dL (2.0-2.9); POTASSIUM 3.8 mmol/L (3.5-5.1); SODIUM 142 mmol/L (136-145); TOTAL PROTEIN 5.1 g/dL (6.4-8.2); eGFR NON BLACK RACES > 60 (>60)
[2023-12-10 06:33] LABS: BAND NEUTROPHILS % 7 % (0-10); PLATELET MORPHOLOGY COMMENT NORMAL (NORMAL)
[2023-12-10] MEDS ORDERED: CONSULT PHARMACY - POTASSIUM & MAGNESIUM XX SCH (07:00)
--- NOTE | 2023-12-10 08:50 | RAD ---
EXAM: CHEST, 1 VIEW HISTORY: influenza a, chronic renal failure; COMPARISON: No relevant prior studies were available for comparison at the time of interpretation. TECHNIQUE: CHEST, 1 VIEW FINDINGS: Chest: Lines and tubes: Cardiac leads overlie the chest. Mediastinum: Median sternotomy wires are present. Cardiac shadow is normal in size. Pulmonary vessels: No pulmonary vascular congestion. Lung bautista: Increasing left-sided airspace opacities. Pleura: No effusion. No pneumothorax. Bones and soft tissues: No acute osseous or soft tissue abnormality. IMPRESSION: 1. Increasing left-sided airspace opacities suggest pneumonia THIS IS AN ELECTRONICALLY VERIFIED FINAL REPORT 12/10/2023 8:47 AM - Electronically signed by Sergo Reynolds MD
[2023-12-10] MEDS: ROBITUSSIN DM PO SCH (09:04)
[2023-12-10] MEDS: MAG-OX TAB PO SCH (09:04)
[2023-12-10] MEDS: K-DUR TAB 20 MEQ PO SCH (09:04)
[2023-12-10] MEDS: SOLU-Medrol 40 MG VIAL IVP SCH (09:27)
[2023-12-10] MEDS: TRESIBA U-100 INSULIN SC SCH (10:07)
[2023-12-10] MEDS: LASIX IVP ONE (11:23)
[2023-12-10] MEDS: ROCEPHIN VIAL 1 GRAM 1 G in NS 100 ML IV 100 ML IV SCH (15:46)
--- NOTE | 2023-12-10 17:14 | PCM.PROG ---
Progress Note Progress Note for Day of Date of Exam: 12/10/23 Subjective Subjective: Mr. Mckeon is a 78 yo white male who is an ER admission after presenting with hypotension, lethargy. He is a [facility]. He was recently hospitalized for UTI, pneumonia and eventually discharged back to [place] with orders for IV antibiotics. Upon arrival to ER, he had a chest xray that showed left lower lobe atelectasis. He also tested positive for flu A. He was started on tamiflu. His blood pressure improved with fluids and after holding sedative medications (risperidone, gabapentin, lorazepam). Morning labs showed hgb 8.5, plt 127, wbc 10.0, BUN 31/creatinine 1.22. Chest xray showed increasing left sided airspace opacities. He is on supplemental oxygen of 3L and o2 sat at 93%, blood pressure 125/60. Past Medical Family Social History Allergies: Allergies No Known Drug Allergies Allergy (Verified 12/08/23 09:32) Vital Signs and I&O's Vital Signs: Vital Signs Pulse Rate [Left Brachial] 76 Respiratory Rate 20 Blood Pressure [Left Arm] 99/53 O2 Sat by Pulse Oximetry 94 Intake and Output: Intake & Output 12/08/23 12/09/23 12/10/23 12/11/23 11:59 11:59 11:59 11:59 Intake Total 1202 / 1202 3189 / 3189 Output Total 900 / 900 800 / 800 Balance 302 / 302 2389 / 2389 Physical Exam Oriented: Person (awake, alert- limited verbal response related to dementia) Eyes: Normal Nose: Normal Cardiovascular: Normal Auscultation: Bowel Sounds: Normal Tenderness: Normal Skin: Decreased Turgur and Wound (chronic sacral ulcer and heel wounds ) Musculoskeletal: Motor Deficit Mood Description: Flat Affect: Quiet Laboratory and Diagnostics 12/10/23 05:30 12/10/23 05:30 Labs: Laboratory WBC 10.0 X10^3/uL (3.6-10.0) 12/10/23 05:30 RBC 2.89 X10^6/uL (4.7-6.0) L 12/10/23 05:30 Hgb 8.5 g/dL (13.5-18.0) L 12/10/23 05:30 Hct 26.0 % (42.0-54.0) L 12/10/23 05:30 MCV 90.0 fL (80.0-100.0) 12/10/23 05:30 MCH 29.4 pg (27.0-34.0) 12/10/23 05:30 MCHC 32.7 g/dL (33.0-35.0) L 12/10/23 05:30 RDW 14.2 % (11.6-16.5) 12/10/23 05:30 Plt Count 127 X10^3/uL (150.0-450.0) L 12/10/23 05:30 Plt Count Comment Decreased (ADEQUATE) 12/10/23 05:30 MPV 10.9 fL (7.4-11.0) 12/10/23 05:30 Neut % (Auto) 90.4 % (42.0-75.0) H 12/10/23 05:30 Lymph % (Auto) 6.8 % (21.0-51.0) L 12/10/23 05:30 [place] % (Auto) 2.5 % (0.0-13.0) 12/10/23 05:30 Eos % (Auto) 0.1 % (0.9-2.9) L 12/10/23 05:30 Baso % (Auto) 0.2 % (0.2-1.0) 12/10/23 05:30 Neut # (Auto) 9.1 x10^3/uL (2.2-4.8) H 12/10/23 05:30 Lymph # (Auto) 0.7 X10^3/uL (1.3-2.9) L 12/10/23 05:30 [place] # (Auto) 0.2 x10^3/uL (0.3-0.8) L 12/10/23 05:30 Eos # (Auto) 0.0 x10^3/uL (0.0-0.2) 12/10/23 05:30 Baso # (Auto) 0.0 X10^3/uL (0.0-0.1) 12/10/23 05:30 Absolute Nucleated RBC 0.1 /100WBC 12/10/23 05:30 Total Counted 100 12/10/23 05:30 Neutrophils % (Manual) 85 % (39-76) H 12/10/23 05:30 Band Neutrophils % 7 % (0-10) 12/10/23 05:30 Lymphocytes % (Manual) 7 % (13-43) L 12/10/23 05:30 Monocytes % (Manual) 1 % (4-9) L 12/10/23 05:30 Plt Morphology Comment Normal (NORMAL) 12/10/23 05:30 RBC Morphology Normal (NORMAL) 12/10/23 05:30 Sodium 142 mmol/L (136-145) 12/10/23 05:30 Corrected Sodium TNP 12/10/23 05:30 Potassium 3.8 mmol/L (3.5-5.1) 12/10/23 05:30 Chloride 109 mmol/L (98-107) H 12/10/23 05:30 Carbon Dioxide 23.1 mmol/L (21-32) 12/10/23 05:30 BUN 31 mg/dL (7-18) H 12/10/23 05:30 Creatinine 1.22 mg/dL (0.70-1.30) 12/10/23 05:30 Est GFR (MDRD) Af Amer > 60 (>60) 12/10/23 05:30 Est GFR (MDRD) Non-Af > 60 (>60) 12/10/23 05:30 Glucose 95 mg/dL (65-99) 12/10/23 05:30 POC Glucose (mg/dL) 114 mg/dL (65-99) H 12/10/23 11:21 Calcium 7.8 mg/dL (8.5-10.1) L 12/10/23 05:30 Corrected Calcium 9.6 mg/dL (8.5-10.1) 12/10/23 05:30 Magnesium 1.6 mg/dL (2.0-2.9) L 12/10/23 05:30 Total Bilirubin 0.60 mg/dL (0.2-1.0) 12/10/23 05:30 AST 72 Units/L (15-37) H 12/10/23 05:30 ALT 29 Units/L (12-78) 12/10/23 05:30 Alkaline Phosphatase 55 Units/L (46-116) 12/10/23 05:30 Total Protein 5.1 g/dL (6.4-8.2) L 12/10/23 05:30 Albumin 1.7 g/dL (3.4-5.0) L 12/10/23 05:30 Globulin 3.4 g/dL (2.5-4.5) 12/10/23 05:30 Albumin/Globulin Ratio 0.5 Ratio (1.1-2.1) L 12/10/23 05:30 SARS-CoV-2 (PCR) Negative (NEGATIVE) 12/08/23 09:54 Influenza Type A (PCR) Positive (NEGATIVE) A 12/08/23 09:54 Influenza Type B (PCR) Negative (NEGATIVE) 12/08/23 09:54 RSV (PCR) Negative (NEGATIVE) 12/08/23 09:54 Plan (1) Influenza: Status: Acute Narrative Support Text: Start solu-medrol, IV lasix x1dose. Continue respiratory therapy, supplemental o2, repeat AM chest xray, labs. (2) Anemia: Status: Chronic Qualifiers: Anemia type: unspecified type Qualified Code(s): D64.9 - Anemia, unspecified (3) TATA (acute kidney injury): Status: Acute (4) Acute dehydration: Status: Acute (5) Acute alteration in mental status: Status: Acute (6) Hypotension: Status: Acute Qualifiers: Hypotension type: unspecified hypotension type Qualified Code(s): I95.9 - Hypotension, unspecified (7) Generalized weakness: Status: Acute (8) Dementia: Status: Chronic Qualifiers: Dementia behavioral or psychological symptom: unspecified whether behavioral, psychotic, or mood disturbance or anxiety Dementia severity: unspecified severity Dementia type: unspecified type Qualified Code(s): F03.90 - Unspecified dementia, unspecified severity, without behavioral disturbance, psychotic disturbance, mood disturbance, and anxiety (9) Thrombocytopenia: Status: Acute
--- NOTE | 2023-12-10 17:17 | DR.H&P ---
H&P Allergies Allergies Allergy/AdvReac Type Severity Reaction Status Date / Time No Known Drug Allergies Allergy Verified 12/08/23 09:32 Past Medical History Past Medical History: Arthritis, Coronary Artery Disease, Dementia, Diabetes, Dyslipidemia, GERD and Hypothyroidism Past Surgical History Surgical History: Unknown Family History Family Medical History: Diabetes Mellitus and Hypertension Social History Does patient currently use any type of tobacco product: No Have you used tobacco products in the last 12 months: No Type of Tobacco Use: None Does any household member use tobacco: No Alcohol Use: None Drug Use: None Medications Home Medications: Home Medications Medication Instructions Recorded Confirmed Type lisinopril 10 mg tablet 10 mg PO DAILY 11/13/14 12/08/23 History folic acid 1 mg tablet 1 mg PO DAILY 10/11/21 12/08/23 History acetaminophen 325 mg tablet 650 mg PO Q4H PRN 11/30/23 12/08/23 History (Tylenol) amino acids-protein hydrolysate 15 1 ea PO DAILY 11/30/23 12/08/23 History gram-100 kcal/30 mL oral liquid (Pro-Stat Sugar Free) donepezil 10 mg tablet 10 mg PO QPM 11/30/23 12/08/23 History famotidine 20 mg tablet 20 mg PO QPM 11/30/23 12/08/23 History fluticasone propionate 50 1 spray intranasal BID 11/30/23 12/08/23 History mcg/actuation nasal spray,suspension gabapentin 300 mg capsule 300 mg PO BID 11/30/23 12/08/23 History insulin degludec 100 unit/mL 5 unit subcut QHS 11/30/23 12/08/23 History subcutaneous solution (Tresiba U-100 Insulin) insulin degludec 100 unit/mL 10 unit subcut QDAY 11/30/23 12/08/23 History subcutaneous solution (Tresiba U-100 Insulin) insulin regular human 100 unit/mL 1 sliding scale dose subcut 11/30/23 12/08/23 History injection solution (Novolin R USEASDIRECTD Regular U-100 Insulin) lorazepam 1 mg tablet 1 mg PO QPM 11/30/23 12/08/23 History magnesium oxide 400 mg PO BID 11/30/23 12/08/23 History melatonin 5 mg tablet 5 mg PO HS 11/30/23 12/08/23 History multivit-minerals no.73-iron 1 cap PO BID 11/30/23 12/08/23 History fumarate 106 mg-folic acid 1 mg capsule multivitamin 1 tab PO QDAY 11/30/23 12/08/23 History peg [id number] 1 1 drp ophthalmic (eye) BID 11/30/23 12/08/23 History %-0.2 %-0.2 % eye drops (Artificial Tears ([id number])) risperidone 0.5 mg tablet 1 mg PO BID 11/30/23 12/08/23 History (Risperdal) rosuvastatin 40 mg tablet (Crestor) 40 mg PO QPM 11/30/23 12/08/23 History ceftriaxone 1 gram/50 mL in 1 g IV DAILY 12/08/23 12/08/23 History dextrose (iso-osmot) intravenous piggyback levothyroxine 150 mcg tablet 150 mcg PO QDAY 12/08/23 12/08/23 History (Synthroid) Labs 12/10/23 05:30 12/10/23 05:30 Labs: Laboratory WBC 10.0 X10^3/uL (3.6-10.0) 12/10/23 05:30 RBC 2.89 X10^6/uL (4.7-6.0) L 12/10/23 05:30 Hgb 8.5 g/dL (13.5-18.0) L 12/10/23 05:30 Hct 26.0 % (42.0-54.0) L 12/10/23 05:30 MCV 90.0 fL (80.0-100.0) 12/10/23 05:30 MCH 29.4 pg (27.0-34.0) 12/10/23 05:30 MCHC 32.7 g/dL (33.0-35.0) L 12/10/23 05:30 RDW 14.2 % (11.6-16.5) 12/10/23 05:30 Plt Count 127 X10^3/uL (150.0-450.0) L 12/10/23 05:30 Plt Count Comment Decreased (ADEQUATE) 12/10/23 05:30 MPV 10.9 fL (7.4-11.0) 12/10/23 05:30 Neut % (Auto) 90.4 % (42.0-75.0) H 12/10/23 05:30 Lymph % (Auto) 6.8 % (21.0-51.0) L 12/10/23 05:30 [place] % (Auto) 2.5 % (0.0-13.0) 12/10/23 05:30 Eos % (Auto) 0.1 % (0.9-2.9) L 12/10/23 05:30 Baso % (Auto) 0.2 % (0.2-1.0) 12/10/23 05:30 Neut # (Auto) 9.1 x10^3/uL (2.2-4.8) H 12/10/23 05:30 Lymph # (Auto) 0.7 X10^3/uL (1.3-2.9) L 12/10/23 05:30 [place] # (Auto) 0.2 x10^3/uL (0.3-0.8) L 12/10/23 05:30 Eos # (Auto) 0.0 x10^3/uL (0.0-0.2) 12/10/23 05:30 Baso # (Auto) 0.0 X10^3/uL (0.0-0.1) 12/10/23 05:30 Absolute Nucleated RBC 0.1 /100WBC 12/10/23 05:30 Total Counted 100 12/10/23 05:30 Neutrophils % (Manual) 85 % (39-76) H 12/10/23 05:30 Band Neutrophils % 7 % (0-10) 12/10/23 05:30 Lymphocytes % (Manual) 7 % (13-43) L 12/10/23 05:30 Monocytes % (Manual) 1 % (4-9) L 12/10/23 05:30 Plt Morphology Comment Normal (NORMAL) 12/10/23 05:30 RBC Morphology Normal (NORMAL) 12/10/23 05:30 Sodium 142 mmol/L (136-145) 12/10/23 05:30 Corrected Sodium TNP 12/10/23 05:30 Potassium 3.8 mmol/L (3.5-5.1) 12/10/23 05:30 Chloride 109 mmol/L (98-107) H 12/10/23 05:30 Carbon Dioxide 23.1 mmol/L (21-32) 12/10/23 05:30 BUN 31 mg/dL (7-18) H 12/10/23 05:30 Creatinine 1.22 mg/dL (0.70-1.30) 12/10/23 05:30 Est GFR (MDRD) Af Amer > 60 (>60) 12/10/23 05:30 Est GFR (MDRD) Non-Af > 60 (>60) 12/10/23 05:30 Glucose 95 mg/dL (65-99) 12/10/23 05:30 POC Glucose (mg/dL) 159 mg/dL (65-99) H 12/10/23 16:43 Calcium 7.8 mg/dL (8.5-10.1) L 12/10/23 05:30 Corrected Calcium 9.6 mg/dL (8.5-10.1) 12/10/23 05:30 Magnesium 1.6 mg/dL (2.0-2.9) L 12/10/23 05:30 Total Bilirubin 0.60 mg/dL (0.2-1.0) 12/10/23 05:30 AST 72 Units/L (15-37) H 12/10/23 05:30 ALT 29 Units/L (12-78) 12/10/23 05:30 Alkaline Phosphatase 55 Units/L (46-116) 12/10/23 05:30 Total Protein 5.1 g/dL (6.4-8.2) L 12/10/23 05:30 Albumin 1.7 g/dL (3.4-5.0) L 12/10/23 05:30 Globulin 3.4 g/dL (2.5-4.5) 12/10/23 05:30 Albumin/Globulin Ratio 0.5 Ratio (1.1-2.1) L 12/10/23 05:30 SARS-CoV-2 (PCR) Negative (NEGATIVE) 12/08/23 09:54 Influenza Type A (PCR) Positive (NEGATIVE) A 12/08/23 09:54 Influenza Type B (PCR) Negative (NEGATIVE) 12/08/23 09:54 RSV (PCR) Negative (NEGATIVE) 12/08/23 09:54 Review of Systems Constitutional: Malaise Eyes: No Symptoms Reported ENT: No Symptoms Reported Respiratory: Shortness of Breath Cardiovascular: No Symptoms Reported Gastrointestinal: No Symptoms Reported Musculoskeletal: No Symptoms Reported Skin: No Symptoms Reported Neurological: Other (lethargy) Physical Exam Vital Signs: Vital Signs Temperature 98.6 F Pulse Rate [Left Brachial] 55 Pulse Rate [Left Brachial] 76 Respiratory Rate 16 Respiratory Rate 20 Blood Pressure [Left Arm] 99/54 Blood Pressure [Left Arm] 99/53 O2 Sat by Pulse Oximetry 90 O2 Sat by Pulse Oximetry 94 Oriented: Person (awake, alert- limited verbal response related to dementia) Assessment/Plan (1) Influenza: Status: Acute (2) Anemia: Qualifiers: Anemia type: unspecified type Qualified Code(s): D64.9 - Anemia, unspecified Status: Chronic (3) TATA (acute kidney injury): Status: Acute (4) Acute dehydration: Status: Acute (5) Acute alteration in mental status: Status: Acute (6) Hypotension: Qualifiers: Hypotension type: unspecified hypotension type Qualified Code(s): I95.9 - Hypotension, unspecified Status: Acute (7) Generalized weakness: Status: Acute (8) Dementia: Qualifiers: Dementia type: unspecified type Dementia severity: unspecified severity Dementia behavioral or psychological symptom: unspecified whether behavioral, psychotic, or mood disturbance or anxiety Qualified Code(s): F03.90 - Unspecified dementia, unspecified severity, without behavioral disturbance, psychotic disturbance, mood disturbance, and anxiety Status: Chronic (9) Thrombocytopenia: Status: Acute
[2023-12-11 06:16] LABS: HEMATOCRIT 23.8 % (42.0-54.0); WHITE BLOOD COUNT 6.4 X10^3/uL (3.6-10.0)
[2023-12-11 06:24] LABS: BASOPHILS % (AUTO) 0.1 % (0.2-1.0); HEMOGLOBIN 7.8 g/dL (13.5-18.0); LYMPHOCYTES # (AUTO) 0.5 X10^3/uL (1.3-2.9); LYMPHOCYTES % (AUTO) 7.5 % (21.0-51.0); MEAN CORPUSCULAR HEMOGLOBIN 29.6 pg (27.0-34.0); MEAN CORPUSCULAR VOLUME 89.7 fL (80.0-100.0); MEAN PLATELET VOLUME 11.2 fL (7.4-11.0); MONOCYTES # (AUTO) 0.2 x10^3/uL (0.3-0.8); MONOCYTES % (AUTO) 3.2 % (0.0-13.0); NEUTROPHILS # (AUTO) 5.7 x10^3/uL (2.2-4.8); NEUTROPHILS % (AUTO) 89.2 % (42.0-75.0); PLATELET COUNT 114 X10^3/uL (150.0-450.0); RED BLOOD COUNT 2.65 X10^6/uL (4.7-6.0); RED CELL DISTRIBUTION WIDTH 14.3 % (11.6-16.5)
[2023-12-11 06:26] LABS: ALANINE AMINOTRANSFERASE 38 Units/L (12-78); ALBUMIN 1.6 g/dL (3.4-5.0); ALKALINE PHOSPHATASE 54 Units/L (46-116); ASPARTATE AMINO TRANSFERASE 63 Units/L (15-37); BLOOD UREA NITROGEN 40 mg/dL (7-18); CALCIUM 7.9 mg/dL (8.5-10.1); CARBON DIOXIDE 22.7 mmol/L (21-32); CHLORIDE 107 mmol/L (98-107); COR CA(FOR HYPOALB) 9.8 mg/dL (8.5-10.1); COR NA(FOR HYPERGLY) 144 mmol/L (136-145); CREATININE 1.39 mg/dL (0.70-1.30); GLUCOSE 219 mg/dL (65-99); MAGNESIUM 1.8 mg/dL (2.0-2.9); POTASSIUM 4.2 mmol/L (3.5-5.1); SODIUM 141 mmol/L (136-145); TOTAL PROTEIN 5.1 g/dL (6.4-8.2); eGFR NON BLACK RACES 52 (>60)
[2023-12-11] MEDS: DUONEB 0.5 MG/3 MG (3 mL) NEB SCH (09:15)
--- NOTE | 2023-12-11 11:05 | RAD ---
EXAM:CHEST, 1 VIEWHISTORY:PNEUMONIA. SOB;COMPARISON:None.FINDINGS:Mild cardiomegaly.Suspect left lower lobe nonspecific airspace opacity/infiltrate which is slightly improved compared to the prior study.No pneumothorax or effusion.The bony thorax appears age appropriate.IMPRESSION:1. Mild cardiomegaly.2. Suspect left lower lobe nonspecific airspace opacity/infiltrate which is slightly improved compared to the prior study.THIS IS AN ELECTRONICALLY VERIFIED FINAL REPORT12/11/2023 11:02 AM - Electronically signed by Juliocesar Saldaña DO
[2023-12-11] MEDS: NovoLIN R (or HumuLIN R) SUBCUT PRN (12:17)
[2023-12-11] MEDS: SNACK - Diabetic Appropriate PO SCH (20:08)
[2023-12-12 05:09] LABS: BASOPHILS % (AUTO) 0.1 % (0.2-1.0); HEMATOCRIT 24.9 % (42.0-54.0); HEMOGLOBIN 8.3 g/dL (13.5-18.0); LYMPHOCYTES # (AUTO) 0.2 X10^3/uL (1.3-2.9); LYMPHOCYTES % (AUTO) 3.5 % (21.0-51.0); MEAN CORPUSCULAR HEMOGLOBIN 29.5 pg (27.0-34.0); MEAN CORPUSCULAR HGB CONC 33.2 g/dL (33.0-35.0); MEAN PLATELET VOLUME 10.8 fL (7.4-11.0); MONOCYTES # (AUTO) 0.2 x10^3/uL (0.3-0.8); MONOCYTES % (AUTO) 2.8 % (0.0-13.0); NEUTROPHILS # (AUTO) 6.3 x10^3/uL (2.2-4.8); NEUTROPHILS % (AUTO) 93.6 % (42.0-75.0); PLATELET COUNT 141 X10^3/uL (150.0-450.0); RED CELL DISTRIBUTION WIDTH 14.4 % (11.6-16.5); WHITE BLOOD COUNT 6.7 X10^3/uL (3.6-10.0)
[2023-12-12 05:22] LABS: ALANINE AMINOTRANSFERASE 55 Units/L (12-78); ALBUMIN 1.6 g/dL (3.4-5.0); ALKALINE PHOSPHATASE 57 Units/L (46-116); ASPARTATE AMINO TRANSFERASE 71 Units/L (15-37); BLOOD UREA NITROGEN 40 mg/dL (7-18); CALCIUM 7.9 mg/dL (8.5-10.1); CARBON DIOXIDE 22.6 mmol/L (21-32); CHLORIDE 109 mmol/L (98-107); COR CA(FOR HYPOALB) 9.8 mg/dL (8.5-10.1); COR NA(FOR HYPERGLY) 145 mmol/L (136-145); GLUCOSE 228 mg/dL (65-99); MAGNESIUM 1.9 mg/dL (2.0-2.9); POTASSIUM 3.8 mmol/L (3.5-5.1); SODIUM 142 mmol/L (136-145); TOTAL PROTEIN 5.2 g/dL (6.4-8.2); eGFR NON BLACK RACES 52 (>60)
[2023-12-12 05:33] LABS: BAND NEUTROPHILS % 4 % (0-10); PLATELET MORPHOLOGY COMMENT NORMAL (NORMAL)
[2023-12-12] MEDS ORDERED: CONSULT PHARMACY - POTASSIUM & MAGNESIUM XX SCH (07:00)
--- NOTE | 2023-12-12 08:50 | EKG ---
Test Reason : bradycardia Blood Pressure : */* mmHG Vent. Rate : 43 BPM Atrial Rate : * BPM P-R Int : * ms QRS Dur : 88 ms QT Int : 502 ms P-R-T Axes : * 34 48 degrees QTc Int : 424 ms Junctional bradycardia Low voltage QRS Abnormal ECG When compared with ECG of 30-NOV-2023 09:47, Junctional rhythm has replaced Sinus rhythm Vent. rate has decreased BY 33 BPM Minimal criteria for Anterior infarct are no longer present Confirmed by Lars Ponce MD ([id number]) on 12/12/2023 3:10:31 PM Referred By: Confirmed By: Lars Ponce MD
[2023-12-12 08:59] LABS: FREE T4 (FREE THYROXINE) 0.74 ng/dL (0.76-1.46); TSH (3RD GENERATION) 10.482 uIU/mL (0.358-3.74)
[2023-12-12] MEDS: K-DUR TAB 20 MEQ PO SCH (09:22)
[2023-12-12] MEDS: MAG-OX TAB PO SCH (09:23)
[2023-12-12] MEDS: TYLENOL 325 MG TAB PO PRN (10:01)
--- NOTE | 2023-12-12 17:02 | RAD ---
EXAM:CHEST x-ray, 1 VIEWHISTORY:INFLUENZA -COMPARISON:X-ray 12/11/2023FINDINGS:Vague infiltrate in the left lung is very similar to prior study. There is probable nodular appearance of the anterior aspect of the right rib from old healed fracture. Borderline CHF is seen. No pneumothorax is seen.IMPRESSION:Appearance of the chest is similar to prior study.THIS IS AN ELECTRONICALLY VERIFIED FINAL REPORT12/12/2023 4:59 PM - Electronically signed by Jovi Peck MD
--- NOTE | 2023-12-12 17:33 | PCM.PROG ---
Progress Note Progress Note for Day of Date of Exam: 12/11/23 Subjective Subjective: Mr. Mckeon is a 78 yo white male who is an ER admission after presenting with hypotension, lethargy. He is a fpc resident of [facility]. He was recently hospitalized for UTI, pneumonia and eventually discharged back to [place] with orders for IV antibiotics. Upon arrival to ER, he had a chest xray that showed left lower lobe atelectasis. He also tested positive for flu A. He was started on tamiflu. His blood pressure improved with fluids and after holding sedative medications (risperidone, gabapentin, lorazepam). Morning labs showed hgb 7.8. Renal function much imp roved with hydraton, Chest xray showed increasing left sided airspace opacities, lasix iv x 1 dose given with orders for repeat am CXR. Pt has been bradycardic, not on current medication to cause rate decrease. Pt has not ate well in several days due to lethargy, but has been more awake this am. Plan to obtain EKG. Family at bedside and did not want to pursue cardiac intervention pace maker placement. Pt has a DNR on chart. Past Medical Family Social History Allergies: Allergies No Known Drug Allergies Allergy (Verified 12/08/23 09:32) Vital Signs and I&O's Vital Signs: Vital Signs Temperature 96.4 F Pulse Rate [Left Brachial] 35 Respiratory Rate 14 Respiratory Rate 18 Respiratory Rate 18 Blood Pressure [Left Arm] 101/53 O2 Sat by Pulse Oximetry 96 Intake and Output: Intake & Output 12/10/23 12/11/23 12/12/23 12/13/23 11:59 11:59 11:59 11:59 Intake Total 3189 / 3189 2279 / 2279 2646 / 2646 1056 / 1056 Output Total 800 / 800 1900 / 1900 950 / 950 Balance 2389 / 2389 379 / 379 1696 / 1696 1056 / 1056 Physical Exam Oriented: Person (awake, alert- limited verbal response related to dementia) Eyes: Normal Nose: Normal Respiratory: Diminished Cardiovascular: Bradycardia Auscultation: Bowel Sounds: Normal Tenderness: Normal Skin: Decreased Turgur and Wound (chronic sacral ulcer and heel wounds ) Musculoskeletal: Motor Deficit Mood Description: Flat Affect: Quiet Speech Pattern: Clear Laboratory and Diagnostics 12/12/23 04:41 12/12/23 04:41 Labs: Laboratory WBC 6.7 X10^3/uL (3.6-10.0) 12/12/23 04:41 RBC 2.80 X10^6/uL (4.7-6.0) L 12/12/23 04:41 Hgb 8.3 g/dL (13.5-18.0) L 12/12/23 04:41 Hct 24.9 % (42.0-54.0) L 12/12/23 04:41 MCV 89.0 fL (80.0-100.0) 12/12/23 04:41 MCH 29.5 pg (27.0-34.0) 12/12/23 04:41 MCHC 33.2 g/dL (33.0-35.0) 12/12/23 04:41 RDW 14.4 % (11.6-16.5) 12/12/23 04:41 Plt Count 141 X10^3/uL (150.0-450.0) L 12/12/23 04:41 Plt Count Comment Decreased (ADEQUATE) 12/12/23 04:41 MPV 10.8 fL (7.4-11.0) 12/12/23 04:41 Neut % (Auto) 93.6 % (42.0-75.0) H 12/12/23 04:41 Lymph % (Auto) 3.5 % (21.0-51.0) L 12/12/23 04:41 [place] % (Auto) 2.8 % (0.0-13.0) 12/12/23 04:41 Eos % (Auto) 0.0 % (0.9-2.9) L 12/12/23 04:41 Baso % (Auto) 0.1 % (0.2-1.0) L 12/12/23 04:41 Neut # (Auto) 6.3 x10^3/uL (2.2-4.8) H 12/12/23 04:41 Lymph # (Auto) 0.2 X10^3/uL (1.3-2.9) L 12/12/23 04:41 [place] # (Auto) 0.2 x10^3/uL (0.3-0.8) L 12/12/23 04:41 Eos # (Auto) 0.0 x10^3/uL (0.0-0.2) 12/12/23 04:41 Baso # (Auto) 0.0 X10^3/uL (0.0-0.1) 12/12/23 04:41 Absolute Nucleated RBC 0.0 /100WBC 12/12/23 04:41 Total Counted 100 12/12/23 04:41 Neutrophils % (Manual) 93 % (39-76) H 12/12/23 04:41 Band Neutrophils % 4 % (0-10) 12/12/23 04:41 Lymphocytes % (Manual) 2 % (13-43) L 12/12/23 04:41 Monocytes % (Manual) 1 % (4-9) L 12/12/23 04:41 Plt Morphology Comment Normal (NORMAL) 12/12/23 04:41 RBC Morphology Normal (NORMAL) 12/12/23 04:41 Sodium 142 mmol/L (136-145) 12/12/23 04:41 Corrected Sodium 145 mmol/L (136-145) 12/12/23 04:41 Potassium 3.8 mmol/L (3.5-5.1) 12/12/23 04:41 Chloride 109 mmol/L (98-107) H 12/12/23 04:41 Carbon Dioxide 22.6 mmol/L (21-32) 12/12/23 04:41 BUN 40 mg/dL (7-18) H 12/12/23 04:41 Creatinine 1.40 mg/dL (0.70-1.30) H 12/12/23 04:41 Est GFR (MDRD) Af Amer > 60 (>60) 12/12/23 04:41 Est GFR (MDRD) Non-Af 52 (>60) L 12/12/23 04:41 Glucose 228 mg/dL (65-99) H 12/12/23 04:41 POC Glucose (mg/dL) 259 mg/dL (65-99) H 12/12/23 11:28 Calcium 7.9 mg/dL (8.5-10.1) L 12/12/23 04:41 Corrected Calcium 9.8 mg/dL (8.5-10.1) 12/12/23 04:41 Magnesium 1.9 mg/dL (2.0-2.9) L 12/12/23 04:41 Total Bilirubin 0.20 mg/dL (0.2-1.0) 12/12/23 04:41 AST 71 Units/L (15-37) H 12/12/23 04:41 ALT 55 Units/L (12-78) 12/12/23 04:41 Alkaline Phosphatase 57 Units/L (46-116) 12/12/23 04:41 Total Protein 5.2 g/dL (6.4-8.2) L 12/12/23 04:41 Albumin 1.6 g/dL (3.4-5.0) L 12/12/23 04:41 Globulin 3.6 g/dL (2.5-4.5) 12/12/23 04:41 Albumin/Globulin Ratio 0.4 Ratio (1.1-2.1) L 12/12/23 04:41 Free T4 0.74 ng/dL (0.76-1.46) L 12/12/23 04:41 TSH 3rd Generation 10.482 uIU/mL (0.358-3.74) H 12/12/23 04:41 SARS-CoV-2 (PCR) Negative (NEGATIVE) 12/08/23 09:54 Influenza Type A (PCR) Positive (NEGATIVE) A 12/08/23 09:54 Influenza Type B (PCR) Negative (NEGATIVE) 12/08/23 09:54 RSV (PCR) Negative (NEGATIVE) 12/08/23 09:54 Resp Viral Panel (PCR) See scanned report 12/11/23 00:50 Plan (1) Influenza: Status: Acute Narrative Support Text: IV HYDRATION, BP MONITORING SUPPLEMENTAL O2 CARDIAC MONITORING IV ATBX, AM LABS ENCOURAGE ORAL HYDRATION (2) Anemia: Status: Chronic Qualifiers: Anemia type: unspecified type Qualified Code(s): D64.9 - Anemia, unspecified (3) TATA (acute kidney injury): Status: Acute (4) Acute dehydration: Status: Acute (5) Acute alteration in mental status: Status: Acute (6) Hypotension: Status: Acute Qualifiers: Hypotension type: unspecified hypotension type Qualified Code(s): I95.9 - Hypotension, unspecified (7) Generalized weakness: Status: Acute (8) Dementia: Status: Chronic Qualifiers: Dementia type: unspecified type Dementia severity: unspecified severity Dementia behavioral or psychological symptom: unspecified whether behavioral, psychotic, or mood disturbance or anxiety Qualified Code(s): F03.90 - Unspecified dementia, unspecified severity, without behavioral disturbance, psychotic disturbance, mood disturbance, and anxiety (9) Thrombocytopenia: Status: Acute
[2023-12-13 05:23] LABS: BASOPHILS % (AUTO) 0.1 % (0.2-1.0); HEMATOCRIT 23.5 % (42.0-54.0); HEMOGLOBIN 7.8 g/dL (13.5-18.0); LYMPHOCYTES # (AUTO) 0.2 X10^3/uL (1.3-2.9); LYMPHOCYTES % (AUTO) 2.7 % (21.0-51.0); MEAN CORPUSCULAR HEMOGLOBIN 29.6 pg (27.0-34.0); MEAN CORPUSCULAR HGB CONC 33.3 g/dL (33.0-35.0); MEAN CORPUSCULAR VOLUME 88.7 fL (80.0-100.0); MEAN PLATELET VOLUME 10.9 fL (7.4-11.0); MONOCYTES # (AUTO) 0.3 x10^3/uL (0.3-0.8); MONOCYTES % (AUTO) 4.8 % (0.0-13.0); NEUTROPHILS # (AUTO) 5.1 x10^3/uL (2.2-4.8); NEUTROPHILS % (AUTO) 92.4 % (42.0-75.0); PLATELET COUNT 132 X10^3/uL (150.0-450.0); RED BLOOD COUNT 2.65 X10^6/uL (4.7-6.0); RED CELL DISTRIBUTION WIDTH 14.4 % (11.6-16.5); WHITE BLOOD COUNT 5.6 X10^3/uL (3.6-10.0)
[2023-12-13 05:35] LABS: ALANINE AMINOTRANSFERASE 92 Units/L (12-78); ALBUMIN 1.6 g/dL (3.4-5.0); ALKALINE PHOSPHATASE 68 Units/L (46-116); ASPARTATE AMINO TRANSFERASE 95 Units/L (15-37); BLOOD UREA NITROGEN 36 mg/dL (7-18); CALCIUM 7.8 mg/dL (8.5-10.1); CARBON DIOXIDE 19.9 mmol/L (21-32); CHLORIDE 110 mmol/L (98-107); COR CA(FOR HYPOALB) 9.7 mg/dL (8.5-10.1); COR NA(FOR HYPERGLY) 146 mmol/L (136-145); GLUCOSE 317 mg/dL (65-99); MAGNESIUM 1.9 mg/dL (2.0-2.9); POTASSIUM 4.3 mmol/L (3.5-5.1); SODIUM 141 mmol/L (136-145); TOTAL PROTEIN 4.9 g/dL (6.4-8.2); eGFR NON BLACK RACES 52 (>60)
[2023-12-13 05:52] LABS: PLATELET MORPHOLOGY COMMENT NORMAL (NORMAL)
[2023-12-13] MEDS ORDERED: CONSULT PHARMACY - POTASSIUM & MAGNESIUM XX SCH (08:00)
[2023-12-13] MEDS: MAG-OX TAB PO SCH (09:44)
[2023-12-13] MEDS: TRESIBA U-100 INSULIN SC SCH (09:44)
[2023-12-13 12:58] VITALS: BP 136/65; PULSE 41; RESP 18; TEMP 97.3; O2SAT 96
== END 2023-12-13 13:30 | DRG 194 ==
LOC: MED/SURG 09:26 → ER 09:26 → MED/SURG 15:25
PROVIDERS: ADMIT Internal Medicine; ATTEND Internal Medicine
DX: E86.0 Dehydration; E03.8 Other specified hypothyroidism; E83.42 Hypomagnesemia; L89.611 Pressure ulcer of right heel, stage 1; L89.321 Pressure ulcer of left buttock, stage 1; I95.89 Other hypotension; R53.1 Weakness; Z66 Do not resuscitate; D64.89 Other specified anemias; E11.65 Type 2 diabetes mellitus with hyperglycemia; E78.5 Hyperlipidemia, unspecified; R00.0 Tachycardia, unspecified; R41.82 Altered mental status, unspecified; L89.621 Pressure ulcer of left heel, stage 1; J10.1 Influenza due to other identified influenza virus with other respiratory manifestations; J18.8 Other pneumonia, unspecified organism; K21.9 Gastro-esophageal reflux disease without esophagitis; N17.8 Other acute kidney failure; R06.02 Shortness of breath; I25.10 Atherosclerotic heart disease of native coronary artery without angina pectoris; N18.9 Chronic kidney disease, unspecified; F03.90 Unspecified dementia, unspecified severity, without behavioral disturbance, psychotic disturbance, mood disturbance, and anxiety

== ENCOUNTER 2024-04-26 09:58 | Inpatient (IN) ==
--- NOTE | 2024-04-26 10:03 | DR.GENAD ---
HPI Time Seen Time Seen by Provider: 04/26/24 10:01 Complaint/Symptoms Chief Complaint Doctors Comments: AMS x 2 days Chief Complaint:: [facility] STAFF STATES THAT HE HAS BEEN LATHARGIC X2 DAYS. STAFF STATES THAT HE RECENTLY WAS STARTED ON XANAX AND RISPERDOL ON 04/22. PT RESPONDS TO STERNAL RUB COVID-19 Coronavirus risk:travel/contact w/high risk person: No Has patient experienced Coronavirus symptoms: No Nurses notes reviewed Nurses Notes Review: Yes Source History Provided: Long Term Mode of Arrival Mode of Arrival: Stretcher Associated Signs and Symptoms Associated Signs and Symptoms: Was started on Xanax and Risperdol on 04/22/24 PMH PMH Past Medical History: Yes Past Medical History: Arthritis, Coronary Artery Disease, Dementia, Diabetes, Dyslipidemia, GERD and Hypothyroidism Past Surgical History: Yes Surgical History: Unknown Family History History of Family Medical Conditions: Yes Family Medical History: Diabetes Mellitus and Hypertension Social History Does patient currently use any type of tobacco product: No Have you used tobacco products in the last 12 months: No Type of Tobacco Use: None Does any household member use tobacco: No Alcohol Use: None Do you use any recreational Drugs:: No Lives Where: Long Term Travel Risk Coronavirus risk:travel/contact w/high risk person: No Has patient experienced Coronavirus symptoms: No Infectious screening In the last 2 months have you had wt loss of >10#?: NO Have you had fever, night sweats or hemotysis?: No Have you traveled outside the country in the last 6 months?: No Isolation: Standard ROS Review of Systems Constitutional: Weakness; negative Fever Eyes: No Symptoms Reported ENTM: No Symptoms Reported; negative Nose Discharge or Nose Congestion Respiratoy: Short of Breath (on exertion.); negative Moist Cough or Wheezing Cardiovascular: Edema Gastrointestinal/Abdominal: No Symptoms Reported; negative Diarrhea or Vomiting Genitourinary: Other (indwelling torres cath.) Neurological: Other (AMS) Musculoskeletal: No Symptoms Reported Integumentary: No Symptoms Reported Hematologic/Lymphatic: No Symptoms Reported Psychiatric: No Symptoms Reported Unable to Obtain Due To: Altered mental status PE Vital Signs Vitals: Vital Signs Temperature 97.9 F Pulse Rate 94 Pulse Rate 89 Pulse Rate 79 Respiratory Rate 15 Respiratory Rate 20 Respiratory Rate 20 Blood Pressure 101/56 Blood Pressure 112/64 O2 Sat by Pulse Oximetry 95 O2 Sat by Pulse Oximetry 91 O2 Sat by Pulse Oximetry 95 General Limitations: Altered Mental Status General Appearance: Lethargic Head Head Exam: Normal Inspection and Atraumatic Eyes Eye exam: negative PERRL (PIPPOINT PUPILS), Scleral Icterus or Periorbital Tenderness ENT ENT Exam: Normal Exam, Normal Oropharynx, Normal External Ear Exam and TM's Normal Bilaterally External Ear Exam: Normal External Inspection Respiratory Respiratory Exam: Normal Lung Sounds Bilat; negative Accessory Muscle Use, Chest Wall Tenderness or Respiratory Distress Respiratory Exam: Bilateral: Rhonchi Cardiovascular Cardiovascular Exam: Regular Rate, Normal Rhythm and Normal Heart Sounds; negative Systolic Murmur or Diastolic Murmur Abdominal Exam Abdominal Exam: Normal Inspection, Normal Bowel Sounds, Soft and Tenderness Abdominal Tenderness: Diffuse and Mild Extremities Extremities Exam: Edema and Other (CONTRACTURES.) Back Back Exam: Paraspinal Tenderness Neurologic Neurological Exam: Other (AMS, RESPOND TI SERNAL RUB.) Psychiatric Psychiatric Exam: Other (AMS) Skin Skin Exam: Warm MDM Differential Diagnosis Differential Diagnosis: TIA, CVA, Overmedicated COURSE Treatment Treatment: See orders done whiile patient was in ER. Consultation Call Returned: 11:45 Consultation Comments: Dr. Oneal will admit patient ROR Labs Reviewed Laboratory Results Reviewed?: Yes 04/30/24 04:50 04/30/24 04:50 Laboratory: 04/26/24 10:20 Blood Blood Culture Gram Stain - Final 04/26/24 10:20 Blood Blood Culture - Preliminary 04/26/24 10:30 Blood Blood Culture - Preliminary 04/26/24 10:25 Urine,Catheterized Urine Culture - Final Escherichia Coli Esbl WBC 4.3 X10^3/uL (3.6-10.0) 04/28/24 05:35 RBC 3.19 X10^6/uL (4.7-6.0) L 04/28/24 05:35 Hgb 8.9 g/dL (13.5-18.0) L 04/28/24 05:35 Hct 27.0 % (42.0-54.0) L 04/28/24 05:35 MCV 84.6 fL (80.0-100.0) 04/28/24 05:35 MCH 28.0 pg (27.0-34.0) 04/28/24 05:35 MCHC 33.1 g/dL (33.0-35.0) 04/28/24 05:35 RDW 14.9 % (11.6-16.5) 04/28/24 05:35 Plt Count 161 X10^3/uL (150.0-450.0) 04/28/24 05:35 MPV 10.4 fL (7.4-11.0) 04/28/24 05:35 Neut % (Auto) 54.1 % (42.0-75.0) 04/28/24 05:35 Lymph % (Auto) 26.9 % (21.0-51.0) 04/28/24 05:35 [place] % (Auto) 9.9 % (0.0-13.0) 04/28/24 05:35 Eos % (Auto) 8.0 % (0.9-2.9) H 04/28/24 05:35 Baso % (Auto) 1.1 % (0.2-1.0) H 04/28/24 05:35 Neut # (Auto) 2.3 x10^3/uL (2.2-4.8) 04/28/24 05:35 Lymph # (Auto) 1.2 X10^3/uL (1.3-2.9) L 04/28/24 05:35 [place] # (Auto) 0.4 x10^3/uL (0.3-0.8) 04/28/24 05:35 Eos # (Auto) 0.3 x10^3/uL (0.0-0.2) H 04/28/24 05:35 Baso # (Auto) 0.0 X10^3/uL (0.0-0.1) 04/28/24 05:35 Absolute Nucleated RBC 0.3 /100WBC 04/28/24 05:35 Sodium 147 mmol/L (136-145) H 04/28/24 05:35 Corrected Sodium TNP 04/28/24 05:35 Potassium 4.0 mmol/L (3.5-5.1) 04/28/24 05:35 Chloride 113 mmol/L (98-107) H 04/28/24 05:35 Carbon Dioxide 23.4 mmol/L (21-32) 04/28/24 05:35 BUN 33 mg/dL (7-18) H 04/28/24 05:35 Creatinine 1.27 mg/dL (0.70-1.30) 04/28/24 05:35 Est GFR (MDRD) Af Amer > 60 (>60) 04/28/24 05:35 Est GFR (MDRD) Non-Af 58 (>60) L 04/28/24 05:35 Glucose 90 mg/dL (65-99) 04/28/24 05:35 POC Glucose (mg/dL) 84 mg/dL (65-99) 04/28/24 05:35 Lactic Acid 1.4 mmol/L (0.4-2.0) 04/26/24 10:20 Calcium 8.7 mg/dL (8.5-10.1) 04/28/24 05:35 Corrected Calcium 10.1 mg/dL (8.5-10.1) 04/28/24 05:35 Magnesium 2.0 mg/dL (2.0-2.9) 04/27/24 06:00 Total Bilirubin 0.40 mg/dL (0.2-1.0) 04/28/24 05:35 AST 13 Units/L (15-37) L 04/28/24 05:35 ALT 16 Units/L (12-78) 04/28/24 05:35 Alkaline Phosphatase 56 Units/L (46-116) 04/28/24 05:35 Ammonia < 10 umol/L (11-32) L 04/26/24 10:20 Creatine Kinase 79 Units/L (39-308) 04/26/24 10:20 Troponin I High Sens 8.5 ng/L (4.0-60.0) 04/26/24 10:20 B-Natriuretic Peptide 47.4 pg/mL (0-79) 04/26/24 10:20 Total Protein 5.7 g/dL (6.4-8.2) L 04/28/24 05:35 Albumin 2.2 g/dL (3.4-5.0) L 04/28/24 05:35 Globulin 3.5 g/dL (2.5-4.5) 04/28/24 05:35 Albumin/Globulin Ratio 0.6 Ratio (1.1-2.1) L 04/28/24 05:35 Specimen Type Catherized urine 04/26/24 10:25 Urine Color Yellow (YELLOW) 04/26/24 10:25 Urine Appearance Hazy (CLEAR) 04/26/24 10:25 Urine pH 7.0 (5.0 - 8.0) 04/26/24 10:25 Ur Specific [place] 1.015 (1.000-1.030) 04/26/24 10:25 Urine Protein 2+ (NEGATIVE) 04/26/24 10:25 Urine Glucose (UA) 3+ (NEGATIVE) 04/26/24 10:25 Urine Ketones Negative (NEGATIVE) 04/26/24 10:25 Urine Blood 3+ (NEGATIVE) 04/26/24 10:25 Urine Nitrite Negative (NEGATIVE) 04/26/24 10:25 Urine Bilirubin Negative (NEGATIVE) 04/26/24 10:25 Urine Urobilinogen Normal (NORMAL) 04/26/24 10:25 Ur Leukocyte Esterase 3+ (NEGATIVE) 04/26/24 10:25 Urine RBC 0-2 /HPF (0-3) 04/26/24 10:25 Urine WBC Tntc /HPF (0-5) A 04/26/24 10:25 Ur Squamous Epith Cells Negative /HPF (NEGATIVE) 04/26/24 10:25 Triple Phos Crystals Few /HPF (NEGATIVE) 04/26/24 10:25 Amorphous Sediment 2+ /HPF (NEGATIVE) 04/26/24 10:25 Urine Bacteria 4+ /HPF (NEGATIVE) 04/26/24 10:25 Urine Mucus Rare /HPF (NEGATIVE) 04/26/24 10:25 Ur Culture Indicated? Yes/culture set up 04/26/24 10:25 Other Results Comments: C notified that the patient would be admitted XRAY XRAY Interpreted by: Radiologist and Self (Chest xray negative) X-ray Results: Name: ELENA MARTINEZ : 1945 Sex: M Location: Order Number(s): [id number] Procedure(s):BRAIN CT W/O CON Ordering Physician: HERBERT LEWIS Primary Care: Tyree Valencia M.D. Service Date: 04/26/24 Service Time: 1011 EXAMINATION: BRAIN W/O CON HISTORY: AMS, LETHARGIC X2 DAYS; COMPARISON: CT 11/30/2023 TECHNIQUE: Contiguous noncontrast axial CT images of the brain. Images are reviewed in the axial imaging plane with reformatted sagittal and coronal images.The above CT scan was done with automated exposure control and the mA and kV was adjusted to obtain quality images according to patient size. FINDINGS: No evidence of acute intracranial hemorrhage, mass effect, or midline shift. Chronic ischemic changes in the right cerebral hemisphere. Chronic areas of decreased density deep white matter adjacent to the lateral ventricles and centrum semiovale regions bilaterally. Consider chronic ischemic white matter changes from small vessel disease or other cause of gliosis. Ventricles normal size and shape. Calvarium appears intact. IMPRESSION: Chronic ischemic changes right frontal parietal lobes. Chronic appearing deep white matter changes within both cerebral hemispheres. THIS IS AN ELECTRONICALLY VERIFIED FINAL REPORT 04/26/2024 11:22 AM - Electronically signed by Myrna Cortez MD Report Electronically signed: 04/26/24 1125 CC: Herbert Lewis EKG Rate: 87 Rhythm: Junctional Opioid Opioid Risk Tool Age (Christopher box if 16-45): No History of Preadolescent Sexual Abuse: No Total: 0 Total Score Risk Category: Low Risk Copyright: Ken BENAVIDEZ predicting aberrant behaviors Discharge Plan Diagnosis Discharge Problem: Altered behavior, Dehydration UTI (urinary tract infection) Qualifiers: Urinary tract infection type: acute cystitis Hematuria presence: without hematuria Qualified Code(s): N30.00 - Acute cystitis without hematuria Discharge Plan Patient Disposition: ADMITTED INPATIENT Condition: Stable
--- NOTE | 2024-04-26 10:25 | EKG ---
Test Reason : hypertension Blood Pressure : */* mmHG Vent. Rate : 87 BPM Atrial Rate : * BPM P-R Int : * ms QRS Dur : 92 ms QT Int : 334 ms P-R-T Axes : * -11 -25 degrees QTc Int : 401 ms Accelerated Junctional rhythm Cannot rule out Anterior infarct , age undetermined Abnormal ECG When compared with ECG of 12-DEC-2023 08:35, Vent. rate has increased BY 44 BPM Nonspecific T wave abnormality now evident in Inferior leads Confirmed by Lars Ponce MD ([id number]) on 04/26/2024 5:43:13 PM Referred By: Confirmed By: Lars Ponce MD
[2024-04-26] MEDS: NS 1,000 ML IV 1,000 ML IV SCH (10:26)
[2024-04-26 10:31] LABS: BILIRUBIN,URINE NEGATIVE (NEGATIVE); BLOOD/HEMOGLOBIN,URINE 3+ (NEGATIVE); GLUCOSE, URINE 3+ (NEGATIVE); KETONES,URINE NEGATIVE (NEGATIVE); LEUKOCYTE ESTERASE ,URINE 3+ (NEGATIVE); NITRITES,URINE NEGATIVE (NEGATIVE); PROTEIN,URINE 2+ (NEGATIVE); UROBILINOGEN,URINE NORMAL (NORMAL)
[2024-04-26 10:38] LABS: HEMOGLOBIN 10.6 g/dL (13.5-18.0)
[2024-04-26 10:41] LABS: APPEARANCE,URINE HAZY (CLEAR); COLOR,URINE YELLOW (YELLOW)
[2024-04-26 10:42] LABS: BACTERIA,URINE 4+ /HPF (NEGATIVE); RBC,URINE 0-2 /HPF (0-3); SQUAMOUS EPITHELIAL CELL,UR NEGATIVE /HPF (NEGATIVE); TRIPLE PHOSPHATE CRYSTAL,UR FEW /HPF (NEGATIVE)
[2024-04-26 10:44] LABS: BASOPHILS # (AUTO) 0.1 X10^3/uL (0.0-0.1); BASOPHILS % (AUTO) 1.2 % (0.2-1.0); EOSINOPHILS # (AUTO) 0.5 x10^3/uL (0.0-0.2); EOSINOPHILS % (AUTO) 6.7 % (0.9-2.9); LYMPHOCYTES # (AUTO) 1.3 X10^3/uL (1.3-2.9); LYMPHOCYTES % (AUTO) 18.3 % (21.0-51.0); MEAN CORPUSCULAR HEMOGLOBIN 27.3 pg (27.0-34.0); MEAN CORPUSCULAR HGB CONC 32.2 g/dL (33.0-35.0); MEAN CORPUSCULAR VOLUME 84.8 fL (80.0-100.0); MEAN PLATELET VOLUME 10.6 fL (7.4-11.0); MONOCYTES # (AUTO) 0.5 x10^3/uL (0.3-0.8); MONOCYTES % (AUTO) 7.5 % (0.0-13.0); NEUTROPHILS # (AUTO) 4.7 x10^3/uL (2.2-4.8); NEUTROPHILS % (AUTO) 66.3 % (42.0-75.0); PLATELET COUNT 193 X10^3/uL (150.0-450.0); RED BLOOD COUNT 3.89 X10^6/uL (4.7-6.0); RED CELL DISTRIBUTION WIDTH 15.2 % (11.6-16.5); WHITE BLOOD COUNT 7.1 X10^3/uL (3.6-10.0)
[2024-04-26 10:57] LABS: ALANINE AMINOTRANSFERASE 24 Units/L (12-78); ALBUMIN 2.8 g/dL (3.4-5.0); ALKALINE PHOSPHATASE 63 Units/L (46-116); ASPARTATE AMINO TRANSFERASE 20 Units/L (15-37); BLOOD UREA NITROGEN 63 mg/dL (7-18); CALCIUM 9.9 mg/dL (8.5-10.1); CHLORIDE 107 mmol/L (98-107); COR CA(FOR HYPOALB) 10.9 mg/dL (8.5-10.1); COR NA(FOR HYPERGLY) 146 mmol/L (136-145); CREATINE KINASE 79 Units/L (39-308); CREATININE 2.05 mg/dL (0.70-1.30); GLUCOSE 157 mg/dL (65-99); POTASSIUM 4.4 mmol/L (3.5-5.1); SODIUM 145 mmol/L (136-145); eGFR NON BLACK RACES 33 (>60)
[2024-04-26 11:04] LABS: AMMONIA < 10 umol/L (11-32)
--- NOTE | 2024-04-26 11:25 | CT ---
EXAMINATION:BRAIN W/O CONHISTORY:AMS, LETHARGIC X2 DAYS;COMPARISON:CT 11/30/2023TECHNIQUE:Contiguous noncontrast axial CT images of the brain. Images are reviewed in the axial imaging plane with reformatted sagittal and coronal images.The above CT scan was done with automated exposure control and the mA and kV was adjusted to obtain quality images according to patient size.FINDINGS:No evidence of acute intracranial hemorrhage, mass effect, or midline shift. Chronic ischemic changes in the right cerebral hemisphere. Chronic areas of decreased density deep white matter adjacent to the lateral ventricles and centrum semiovale regions bilaterally. Consider chronic ischemic white matter changes from small vessel disease or other cause of gliosis. Ventricles normal size and shape. Calvarium appears intact.IMPRESSION:Chronic ischemic changes right frontal parietal lobes. Chronic appearing deep white matter changes within both cerebral hemispheres.THIS IS AN ELECTRONICALLY VERIFIED FINAL REPORT04/26/2024 11:22 AM - Electronically signed by Myrna Cortez MD
[2024-04-26] MEDS: ROCEPHIN VIAL 1 GRAM IV ONE (11:33)
--- NOTE | 2024-04-26 14:50 | RAD ---
EXAM: CHEST HISTORY: SOB, LETHARGIC; COMPARISON: March 11, 2024. TECHNIQUE: Frontal view of the chest was submitted for interpretation. FINDINGS: The cardiomediastinal silhouette is within normal limits. Lungs show no focal consolidation, pneumot horax, or pleural fluid. IMPRESSION: No acute cardiopulmonary process. THIS IS AN ELECTRONICALLY VERIFIED FINAL REPORT 04/26/2024 2:47 PM - Electronically signed by Charles Ugalde MD
[2024-04-26 15:33] VITALS: BMI 27.1
[2024-04-26] MEDS ORDERED: PHARMACY CONSULT LTC MEDICATIONS XX SCH (16:00)
[2024-04-26] MEDS: SNACK - Diabetic Appropriate PO SCH (20:24)
[2024-04-26] MEDS: MAG-OX TAB PO SCH (21:08)
[2024-04-26] MEDS: NovoLIN R (or HumuLIN R) SUBCUT PRN (21:08)
[2024-04-26] MEDS: FLONASE NASAL SPRAY ENOSTRIL SCH (21:08)
[2024-04-26] MEDS: PEPCID TAB 20 MG PO SCH (21:09)
[2024-04-26] MEDS: HEMOCYTE-PLUS PO SCH (21:09)
[2024-04-26] MEDS: NEURONTIN CAP 300 MG PO SCH (21:09)
[2024-04-26] MEDS: ARICEPT TAB 10 MG PO SCH (21:10)
[2024-04-26] MEDS: ARTIFICIAL TEARS DROPS OP SCH (21:10)
[2024-04-26] MEDS ORDERED: VOLTAREN 1 % GEL MULTI DOSE TUBE TOP PRN (23:04)
[2024-04-27] MEDS: ATIVAN TAB 1 MG PO SCH (00:58)
[2024-04-27] MEDS: SYNTHROID 150 mcg TAB PO SCH (05:36)
[2024-04-27 06:47] LABS: BASOPHILS % (AUTO) 0.9 % (0.2-1.0); EOSINOPHILS # (AUTO) 0.4 x10^3/uL (0.0-0.2); EOSINOPHILS % (AUTO) 7.7 % (0.9-2.9); HEMATOCRIT 28.8 % (42.0-54.0); HEMOGLOBIN 9.5 g/dL (13.5-18.0); LYMPHOCYTES % (AUTO) 20.2 % (21.0-51.0); MEAN CORPUSCULAR HGB CONC 32.9 g/dL (33.0-35.0); MEAN CORPUSCULAR VOLUME 84.9 fL (80.0-100.0); MEAN PLATELET VOLUME 10.5 fL (7.4-11.0); MONOCYTES # (AUTO) 0.4 x10^3/uL (0.3-0.8); MONOCYTES % (AUTO) 8.6 % (0.0-13.0); NEUTROPHILS # (AUTO) 3.1 x10^3/uL (2.2-4.8); NEUTROPHILS % (AUTO) 62.6 % (42.0-75.0); PLATELET COUNT 165 X10^3/uL (150.0-450.0); RED CELL DISTRIBUTION WIDTH 14.9 % (11.6-16.5); WHITE BLOOD COUNT 4.9 X10^3/uL (3.6-10.0)
[2024-04-27 07:06] LABS: ALBUMIN 2.5 g/dL (3.4-5.0); CALCIUM 9.1 mg/dL (8.5-10.1); CARBON DIOXIDE 25.1 mmol/L (21-32); COR CA(FOR HYPOALB) 10.3 mg/dL (8.5-10.1); CREATININE 1.53 mg/dL (0.70-1.30); POTASSIUM 3.8 mmol/L (3.5-5.1); TOTAL PROTEIN 6.4 g/dL (6.4-8.2)
[2024-04-27] MEDS ORDERED: CONSULT PHARMACY - POTASSIUM & MAGNESIUM XX SCH (09:00)
[2024-04-27] MEDS: FARXIGA PO SCH (10:00)
[2024-04-27] MEDS: K-DUR TAB 20 MEQ PO SCH (10:00)
[2024-04-27] MEDS: ROCEPHIN VIAL 1 GRAM 1 G in NS 100 ML IV 100 ML IV SCH (10:00)
[2024-04-27] MEDS: ZESTRIL TAB 10 MG PO SCH (10:25)
[2024-04-27] MEDS: FLOMAX PO SCH (10:25)
[2024-04-27] MEDS: TAB-A-VITE PO SCH (10:26)
[2024-04-27] MEDS: FOLIC ACID TAB 1 MG PO SCH (10:26)
[2024-04-27] MEDS: TRESIBA U-100 INSULIN SC SCH (10:28)
[2024-04-27] MEDS: AMINO ACIDS PROTEIN HYDROLYS PO SCH (10:30)
[2024-04-27] MEDS: [UNRECOGNIZED DRUG - OTHER] PO SCH (10:30)
--- NOTE | 2024-04-27 11:34 | DR.H&P ---
H&P History & Physical for Day of: H&P Date: 04/27/24 Chief Complaint Chief Complaint: altered mental status History of Present Illness History of Present Illness: Patient is a 79-year-old male that is a resident of [facility] presenting with altered mental status. Labs/imaging: WBC 4.9, hemoglobin 9.5, platelets 165, sodium 143, potassium 3.8, creatinine 2.05>1.53, glucose 191, UA consistent with infection, urine/blood culture pending. CT head negative for acute intracranial findings. CXR negative for acute cardiopulmonary findings. Patient was admitted for altered mental status likely due to acute cystitis and Acute kidney injury. He is currently on IV fluids normal saline at 125 mL/h, IV antibiotics Rocephin daily. Home medications will be resumed. Otherwise continue with current treatment plan. C ontinue to closely monitor and follow-up labs/imaging in the morning. Past Medical History Past Medical History: Arthritis, Coronary Artery Disease, Dementia, Diabetes, Dyslipidemia, GERD and Hypothyroidism Past Surgical History Surgical History: Unknown Family History Family Medical History: Diabetes Mellitus and Hypertension Social History Does patient currently use any type of tobacco product: No Have you used tobacco products in the last 12 months: No Type of Tobacco Use: None Does any household member use tobacco: No Alcohol Use: None Drug Use: None Medications Home Medications: Home Medications Medication Instructions Recorded Confirmed Type lisinopril 10 mg tablet 10 mg PO DAILY 11/13/14 04/26/24 History folic acid 1 mg tablet 1 mg PO DAILY 10/11/21 04/26/24 History acetaminophen 325 mg tablet 650 mg PO Q4H PRN 11/30/23 04/26/24 History (Tylenol) amino acids-protein hydrolysate 15 1 ea PO DAILY 11/30/23 04/26/24 History gram-100 kcal/30 mL oral liquid (Pro-Stat Sugar Free) donepezil 10 mg tablet 10 mg PO QPM 11/30/23 04/26/24 History famotidine 20 mg tablet 20 mg PO QPM 11/30/23 04/26/24 History fluticasone propionate 50 1 spray intranasal BID 11/30/23 04/26/24 History mcg/actuation nasal spray,suspension gabapentin 300 mg capsule 300 mg PO BID 11/30/23 04/26/24 History insulin degludec 100 unit/mL 10 unit subcut BID 11/30/23 04/26/24 History subcutaneous solution (Tresiba U-100 Insulin) insulin degludec 100 unit/mL 10 unit subcut QDAY 11/30/23 04/26/24 History subcutaneous solution (Tresiba U-100 Insulin) insulin regular human 100 unit/mL 1 sliding scale dose subcut 11/30/23 04/26/24 History injection solution (Novolin R USEASDIRECTD Regular U-100 Insulin) magnesium oxide 400 mg PO BID 11/30/23 04/26/24 History multivit-minerals no.73-iron 1 cap PO BID 11/30/23 04/26/24 History fumarate 106 mg-folic acid 1 mg capsule multivitamin 1 tab PO QDAY 11/30/23 04/26/24 History peg 140-[id number]-hbvneven 1 1 drp ophthalmic (eye) BID 11/30/23 04/26/24 History %-0.2 %-0.2 % eye drops (Artificial Tears ([id number])) risperidone 0.5 mg tablet 1 mg PO BID 11/30/23 04/26/24 History (Risperdal) levothyroxine 150 mcg tablet 150 mcg PO QDAY 12/08/23 04/26/24 History (Synthroid) dapagliflozin propanediol 10 mg 10 mg PO QDAY 04/26/24 04/26/24 History tablet diclofenac sodium 1 % topical gel 1 ea topical QID 04/26/24 04/26/24 History lorazepam 1 mg tablet 1 mg PO HS 04/26/24 04/26/24 History rosuvastatin 20 mg tablet 20 mg PO HS 04/26/24 04/26/24 History tamsulosin 0.4 mg capsule 0.4 mg PO QDAY 04/26/24 04/26/24 History Allergies Allergies Allergy/AdvReac Type Severity Reaction Status Date / Time No Known Drug Allergies Allergy Verified 12/08/23 09:32 Labs 04/27/24 06:00 04/27/24 06:00 Labs: Laboratory WBC 4.9 X10^3/uL (3.6-10.0) 04/27/24 06:00 RBC 3.40 X10^6/uL (4.7-6.0) L 04/27/24 06:00 Hgb 9.5 g/dL (13.5-18.0) L 04/27/24 06:00 Hct 28.8 % (42.0-54.0) L 04/27/24 06:00 MCV 84.9 fL (80.0-100.0) 04/27/24 06:00 MCH 28.0 pg (27.0-34.0) 04/27/24 06:00 MCHC 32.9 g/dL (33.0-35.0) L 04/27/24 06:00 RDW 14.9 % (11.6-16.5) 04/27/24 06:00 Plt Count 165 X10^3/uL (150.0-450.0) 04/27/24 06:00 MPV 10.5 fL (7.4-11.0) 04/27/24 06:00 Neut % (Auto) 62.6 % (42.0-75.0) 04/27/24 06:00 Lymph % (Auto) 20.2 % (21.0-51.0) L 04/27/24 06:00 [place] % (Auto) 8.6 % (0.0-13.0) 04/27/24 06:00 Eos % (Auto) 7.7 % (0.9-2.9) H 04/27/24 06:00 Baso % (Auto) 0.9 % (0.2-1.0) 04/27/24 06:00 Neut # (Auto) 3.1 x10^3/uL (2.2-4.8) 04/27/24 06:00 Lymph # (Auto) 1.0 X10^3/uL (1.3-2.9) L 04/27/24 06:00 [place] # (Auto) 0.4 x10^3/uL (0.3-0.8) 04/27/24 06:00 Eos # (Auto) 0.4 x10^3/uL (0.0-0.2) H 04/27/24 06:00 Baso # (Auto) 0.0 X10^3/uL (0.0-0.1) 04/27/24 06:00 Absolute Nucleated RBC 0.0 /100WBC 04/27/24 06:00 Sodium 143 mmol/L (136-145) 04/27/24 06:00 Corrected Sodium 145 mmol/L (136-145) 04/27/24 06:00 Potassium 3.8 mmol/L (3.5-5.1) 04/27/24 06:00 Chloride 109 mmol/L (98-107) H 04/27/24 06:00 Carbon Dioxide 25.1 mmol/L (21-32) 04/27/24 06:00 BUN 47 mg/dL (7-18) H 04/27/24 06:00 Creatinine 1.53 mg/dL (0.70-1.30) H 04/27/24 06:00 Est GFR (MDRD) Af Amer 57 (>60) L 04/27/24 06:00 Est GFR (MDRD) Non-Af 47 (>60) L 04/27/24 06:00 Glucose 191 mg/dL (65-99) H 04/27/24 06:00 POC Glucose (mg/dL) 210 mg/dL (65-99) H 04/27/24 05:42 Lactic Acid 1.4 mmol/L (0.4-2.0) 04/26/24 10:20 Calcium 9.1 mg/dL (8.5-10.1) 04/27/24 06:00 Corrected Calcium 10.3 mg/dL (8.5-10.1) H 04/27/24 06:00 Magnesium 2.0 mg/dL (2.0-2.9) 04/27/24 06:00 Total Bilirubin 0.50 mg/dL (0.2-1.0) 04/27/24 06:00 AST 20 Units/L (15-37) 04/27/24 06:00 ALT 22 Units/L (12-78) 04/27/24 06:00 Alkaline Phosphatase 68 Units/L (46-116) 04/27/24 06:00 Ammonia < 10 umol/L (11-32) L 04/26/24 10:20 Creatine Kinase 79 Units/L (39-308) 04/26/24 10:20 Troponin I High Sens 8.5 ng/L (4.0-60.0) 04/26/24 10:20 B-Natriuretic Peptide 47.4 pg/mL (0-79) 04/26/24 10:20 Total Protein 6.4 g/dL (6.4-8.2) 04/27/24 06:00 Albumin 2.5 g/dL (3.4-5.0) L 04/27/24 06:00 Globulin 3.9 g/dL (2.5-4.5) 04/27/24 06:00 Albumin/Globulin Ratio 0.6 Ratio (1.1-2.1) L 04/27/24 06:00 Specimen Type Catherized urine 04/26/24 10:25 Urine Color Yellow (YELLOW) 04/26/24 10:25 Urine Appearance Hazy (CLEAR) 04/26/24 10:25 Urine pH 7.0 (5.0 - 8.0) 04/26/24 10:25 Ur Specific [place] 1.015 (1.000-1.030) 04/26/24 10:25 Urine Protein 2+ (NEGATIVE) 04/26/24 10:25 Urine Glucose (UA) 3+ (NEGATIVE) 04/26/24 10:25 Urine Ketones Negative (NEGATIVE) 04/26/24 10:25 Urine Blood 3+ (NEGATIVE) 04/26/24 10:25 Urine Nitrite Negative (NEGATIVE) 04/26/24 10:25 Urine Bilirubin Negative (NEGATIVE) 04/26/24 10:25 Urine Urobilinogen Normal (NORMAL) 04/26/24 10:25 Ur Leukocyte Esterase 3+ (NEGATIVE) 04/26/24 10:25 Urine RBC 0-2 /HPF (0-3) 04/26/24 10:25 Urine WBC Tntc /HPF (0-5) A 04/26/24 10:25 Ur Squamous Epith Cells Negative /HPF (NEGATIVE) 04/26/24 10:25 Triple Phos Crystals Few /HPF (NEGATIVE) 04/26/24 10:25 Amorphous Sediment 2+ /HPF (NEGATIVE) 04/26/24 10:25 Urine Bacteria 4+ /HPF (NEGATIVE) 04/26/24 10:25 Urine Mucus Rare /HPF (NEGATIVE) 04/26/24 10:25 Ur Culture Indicated? Yes/culture set up 04/26/24 10:25 Review of Systems Constitutional: Weakness Eyes: No Symptoms Reported ENT: No Symptoms Reported Respiratory: No Symptoms Reported Cardiovascular: No Symptoms Reported Gastrointestinal: No Symptoms Reported Genitourinary: Dysuria Musculoskeletal: No Symptoms Reported Skin: No Symptoms Reported Neurological: No Symptoms Reported Physical Exam Vital Signs: Vital Signs Temperature 97.4 F Temperature 98.3 F Pulse Rate [Left Radial] 85 Pulse Rate [Left Radial] 106 Respiratory Rate 20 Respiratory Rate 18 Blood Pressure [Left Arm] 132/65 Blood Pressure [Left Arm] 133/63 O2 Sat by Pulse Oximetry 96 O2 Sat by Pulse Oximetry 94 Oriented: Other Eyes: Normal Ear: Normal Nose: Normal Throat: Normal Respiratory: Clear Throughout Cardiovascular: Normal : Normal Auscultation: Bowel Sounds: Normal Palpation: Normal Tenderness: Normal Skin: Normal Musculoskeletal: Normal Psychiatric: Normal Mood Description: Calm Affect: Normal Assessment/Plan (1) Urinary tract infection: Qualifiers: Urinary tract infection type: acute cystitis Status: Acute Plan: IV Rocephin Cultures pending (2) Acute alteration in mental status: Status: Acute (3) Acute dehydration: Status: Acute (4) TATA (acute kidney injury): Status: Acute Review H&P Reviewed: Yes Patient was examined?: Yes
[2024-04-27] MEDS: BACTROBAN TOPICAL OINT TOP SCH (17:13)
[2024-04-27] MEDS: CRESTOR TAB 10 MG PO SCH (20:55)
[2024-04-28 06:20] LABS: BASOPHILS % (AUTO) 1.1 % (0.2-1.0); EOSINOPHILS # (AUTO) 0.3 x10^3/uL (0.0-0.2); HEMOGLOBIN 8.9 g/dL (13.5-18.0); LYMPHOCYTES # (AUTO) 1.2 X10^3/uL (1.3-2.9); LYMPHOCYTES % (AUTO) 26.9 % (21.0-51.0); MEAN CORPUSCULAR HGB CONC 33.1 g/dL (33.0-35.0); MEAN CORPUSCULAR VOLUME 84.6 fL (80.0-100.0); MEAN PLATELET VOLUME 10.4 fL (7.4-11.0); MONOCYTES # (AUTO) 0.4 x10^3/uL (0.3-0.8); MONOCYTES % (AUTO) 9.9 % (0.0-13.0); NEUTROPHILS # (AUTO) 2.3 x10^3/uL (2.2-4.8); NEUTROPHILS % (AUTO) 54.1 % (42.0-75.0); PLATELET COUNT 161 X10^3/uL (150.0-450.0); RED BLOOD COUNT 3.19 X10^6/uL (4.7-6.0); RED CELL DISTRIBUTION WIDTH 14.9 % (11.6-16.5); WHITE BLOOD COUNT 4.3 X10^3/uL (3.6-10.0)
[2024-04-28 06:38] LABS: ALANINE AMINOTRANSFERASE 16 Units/L (12-78); ALBUMIN 2.2 g/dL (3.4-5.0); ALKALINE PHOSPHATASE 56 Units/L (46-116); ASPARTATE AMINO TRANSFERASE 13 Units/L (15-37); BLOOD UREA NITROGEN 33 mg/dL (7-18); CALCIUM 8.7 mg/dL (8.5-10.1); CARBON DIOXIDE 23.4 mmol/L (21-32); CHLORIDE 113 mmol/L (98-107); COR CA(FOR HYPOALB) 10.1 mg/dL (8.5-10.1); CREATININE 1.27 mg/dL (0.70-1.30); GLUCOSE 90 mg/dL (65-99); SODIUM 147 mmol/L (136-145); TOTAL PROTEIN 5.7 g/dL (6.4-8.2); eGFR NON BLACK RACES 58 (>60)
[2024-04-28] MEDS: NS IRRIGATION* 500 ML IR ONE (07:04)
[2024-04-28] MEDS: INVanz INJ 1 GRAM VIAL 1 G in NS 100 ML IV 100 ML IV SCH (10:15)
--- NOTE | 2024-04-28 22:05 | PCM.PROG ---
Progress Note Progress Note for Day of Date of Exam: 04/28/24 Subjective Subjective: This morning, the patient is awake. I asked him some questions but he did not answer me. The nurses tell me the patient has been refusing his medications this morning. However, he has had no acute problems since yesterday morning. His urine culture has grown out each week ESBL positive for E. coli. We discontinued his IV Rocephin today and changed him to IV Invanz at 1 g IV daily day. Blood culture is negative at this time. We will encourage him to continue to take his oral medications and follow-up for improvement of his altered mental status. The patient's hydration status has improved greatly and his estimated GFR is 58 today. His creatinine is down to 1.27 and his BUN is also improved at 33 from 47 yesterday. The patient's hemoglobin has dropped some to 8.9 however a large amount of the drop since admission is from hemodilution. Continue to follow daily CBCs and CMP's. Past Medical Family Social History Allergies: Allergies No Known Drug Allergies Allergy (Verified 12/08/23 09:32) Review of Systems ROS: No change since H&P Vital Signs and I&O's Vital Signs: Vital Signs Temperature 98.0 F Temperature 98.2 F Pulse Rate [Left Radial] 78 Pulse Rate [Left Radial] 53 Respiratory Rate 18 Respiratory Rate 18 Blood Pressure [Left Arm] 173/72 Blood Pressure [Left Arm] 163/74 O2 Sat by Pulse Oximetry 97 O2 Sat by Pulse Oximetry 95 Intake and Output: Intake & Output 04/26/24 04/27/24 04/28/24 04/29/24 11:59 11:59 11:59 11:59 Intake Total 120 / 120 2108 / 2108 2452 / 2452 2773 / 2773 Output Total 400 / 400 400 / 400 2700 / 2700 850 / 850 Balance -280 / -280 1708 / 1708 -248 / -248 1923 / 1923 Physical Exam Oriented: Other Eyes: Normal Ear: Normal Nose: Normal Throat: Normal Respiratory: Normal Cardiovascular: Normal : Normal Auscultation: Bowel Sounds: Normal Tenderness: Normal Skin: Normal Musculoskeletal: Normal Psychiatric: Normal Mood Description: Calm Affect: Normal Speech Pattern: Unclear Laboratory and Diagnostics 04/28/24 05:35 04/28/24 05:35 Labs: 04/26/24 10:20 Blood Blood Culture Gram Stain - Final 04/26/24 10:20 Blood Blood Culture - Preliminary 04/26/24 10:30 Blood Blood Culture - Preliminary 04/26/24 10:25 Urine,Catheterized Urine Culture - Final Escherichia Coli Esbl Laboratory WBC 4.3 X10^3/uL (3.6-10.0) 04/28/24 05:35 RBC 3.19 X10^6/uL (4.7-6.0) L 04/28/24 05:35 Hgb 8.9 g/dL (13.5-18.0) L 04/28/24 05:35 Hct 27.0 % (42.0-54.0) L 04/28/24 05:35 MCV 84.6 fL (80.0-100.0) 04/28/24 05:35 MCH 28.0 pg (27.0-34.0) 04/28/24 05:35 MCHC 33.1 g/dL (33.0-35.0) 04/28/24 05:35 RDW 14.9 % (11.6-16.5) 04/28/24 05:35 Plt Count 161 X10^3/uL (150.0-450.0) 04/28/24 05:35 MPV 10.4 fL (7.4-11.0) 04/28/24 05:35 Neut % (Auto) 54.1 % (42.0-75.0) 04/28/24 05:35 Lymph % (Auto) 26.9 % (21.0-51.0) 04/28/24 05:35 [place] % (Auto) 9.9 % (0.0-13.0) 04/28/24 05:35 Eos % (Auto) 8.0 % (0.9-2.9) H 04/28/24 05:35 Baso % (Auto) 1.1 % (0.2-1.0) H 04/28/24 05:35 Neut # (Auto) 2.3 x10^3/uL (2.2-4.8) 04/28/24 05:35 Lymph # (Auto) 1.2 X10^3/uL (1.3-2.9) L 04/28/24 05:35 [place] # (Auto) 0.4 x10^3/uL (0.3-0.8) 04/28/24 05:35 Eos # (Auto) 0.3 x10^3/uL (0.0-0.2) H 04/28/24 05:35 Baso # (Auto) 0.0 X10^3/uL (0.0-0.1) 04/28/24 05:35 Absolute Nucleated RBC 0.3 /100WBC 04/28/24 05:35 Sodium 147 mmol/L (136-145) H 04/28/24 05:35 Corrected Sodium TNP 04/28/24 05:35 Potassium 4.0 mmol/L (3.5-5.1) 04/28/24 05:35 Chloride 113 mmol/L (98-107) H 04/28/24 05:35 Carbon Dioxide 23.4 mmol/L (21-32) 04/28/24 05:35 BUN 33 mg/dL (7-18) H 04/28/24 05:35 Creatinine 1.27 mg/dL (0.70-1.30) 04/28/24 05:35 Est GFR (MDRD) Af Amer > 60 (>60) 04/28/24 05:35 Est GFR (MDRD) Non-Af 58 (>60) L 04/28/24 05:35 Glucose 90 mg/dL (65-99) 04/28/24 05:35 POC Glucose (mg/dL) 109 mg/dL (65-99) H 04/28/24 16:29 Lactic Acid 1.4 mmol/L (0.4-2.0) 04/26/24 10:20 Calcium 8.7 mg/dL (8.5-10.1) 04/28/24 05:35 Corrected Calcium 10.1 mg/dL (8.5-10.1) 04/28/24 05:35 Magnesium 2.0 mg/dL (2.0-2.9) 04/27/24 06:00 Total Bilirubin 0.40 mg/dL (0.2-1.0) 04/28/24 05:35 AST 13 Units/L (15-37) L 04/28/24 05:35 ALT 16 Units/L (12-78) 04/28/24 05:35 Alkaline Phosphatase 56 Units/L (46-116) 04/28/24 05:35 Ammonia < 10 umol/L (11-32) L 04/26/24 10:20 Creatine Kinase 79 Units/L (39-308) 04/26/24 10:20 Troponin I High Sens 8.5 ng/L (4.0-60.0) 04/26/24 10:20 B-Natriuretic Peptide 47.4 pg/mL (0-79) 04/26/24 10:20 Total Protein 5.7 g/dL (6.4-8.2) L 04/28/24 05:35 Albumin 2.2 g/dL (3.4-5.0) L 04/28/24 05:35 Globulin 3.5 g/dL (2.5-4.5) 04/28/24 05:35 Albumin/Globulin Ratio 0.6 Ratio (1.1-2.1) L 04/28/24 05:35 Specimen Type Catherized urine 04/26/24 10:25 Urine Color Yellow (YELLOW) 04/26/24 10:25 Urine Appearance Hazy (CLEAR) 04/26/24 10:25 Urine pH 7.0 (5.0 - 8.0) 04/26/24 10:25 Ur Specific [place] 1.015 (1.000-1.030) 04/26/24 10:25 Urine Protein 2+ (NEGATIVE) 04/26/24 10:25 Urine Glucose (UA) 3+ (NEGATIVE) 04/26/24 10:25 Urine Ketones Negative (NEGATIVE) 04/26/24 10:25 Urine Blood 3+ (NEGATIVE) 04/26/24 10:25 Urine Nitrite Negative (NEGATIVE) 04/26/24 10:25 Urine Bilirubin Negative (NEGATIVE) 04/26/24 10:25 Urine Urobilinogen Normal (NORMAL) 04/26/24 10:25 Ur Leukocyte Esterase 3+ (NEGATIVE) 04/26/24 10:25 Urine RBC 0-2 /HPF (0-3) 04/26/24 10:25 Urine WBC Tntc /HPF (0-5) A 04/26/24 10:25 Ur Squamous Epith Cells Negative /HPF (NEGATIVE) 04/26/24 10:25 Triple Phos Crystals Few /HPF (NEGATIVE) 04/26/24 10:25 Amorphous Sediment 2+ /HPF (NEGATIVE) 04/26/24 10:25 Urine Bacteria 4+ /HPF (NEGATIVE) 04/26/24 10:25 Urine Mucus Rare /HPF (NEGATIVE) 04/26/24 10:25 Ur Culture Indicated? Yes/culture set up 04/26/24 10:25 Radiology Reviewed: Yes Plan (1) Urinary tract infection: Status: Acute Qualifiers: Urinary tract infection type: acute cystitis Narrative Support Text: Urine culture has grown out ESBL E. coli sensitive to Ertapenem. Plan: Discontinue IV Rocephin. Start Invanz 1 g IV every 24 hours. (2) Acute alteration in mental status: Status: Acute Plan: Treat the patient underlying UTI secondary to E. coli and monitor for improvement of mental status. (3) Acute dehydration: Status: Acute Narrative Support Text: BUN and creatinine have improved since admission. Plan: IV hydration. (4) TATA (acute kidney injury): Status: Acute Plan: Continue IV hydration.
[2024-04-28] MEDS ORDERED: FLOMAX PO SCH (23:00)
[2024-04-29] MEDS: TYLENOL 325 MG TAB PO PRN (05:25)
[2024-04-29 05:28] LABS: BASOPHILS # (AUTO) 0.1 X10^3/uL (0.0-0.1); BASOPHILS % (AUTO) 0.8 % (0.2-1.0); EOSINOPHILS # (AUTO) 0.3 x10^3/uL (0.0-0.2); HEMATOCRIT 30.7 % (42.0-54.0); HEMOGLOBIN 10.2 g/dL (13.5-18.0); LYMPHOCYTES # (AUTO) 0.8 X10^3/uL (1.3-2.9); MEAN CORPUSCULAR HEMOGLOBIN 27.8 pg (27.0-34.0); MEAN CORPUSCULAR HGB CONC 33.2 g/dL (33.0-35.0); MEAN PLATELET VOLUME 9.9 fL (7.4-11.0); MONOCYTES # (AUTO) 0.6 x10^3/uL (0.3-0.8); MONOCYTES % (AUTO) 6.5 % (0.0-13.0); NEUTROPHILS # (AUTO) 7.4 x10^3/uL (2.2-4.8); NEUTROPHILS % (AUTO) 80.7 % (42.0-75.0); PLATELET COUNT 178 X10^3/uL (150.0-450.0); RED BLOOD COUNT 3.66 X10^6/uL (4.7-6.0); RED CELL DISTRIBUTION WIDTH 14.8 % (11.6-16.5); WHITE BLOOD COUNT 9.2 X10^3/uL (3.6-10.0)
[2024-04-29 05:44] LABS: ALANINE AMINOTRANSFERASE 17 Units/L (12-78); ALBUMIN 2.5 g/dL (3.4-5.0); ALKALINE PHOSPHATASE 61 Units/L (46-116); ASPARTATE AMINO TRANSFERASE 17 Units/L (15-37); BLOOD UREA NITROGEN 25 mg/dL (7-18); CALCIUM 9.1 mg/dL (8.5-10.1); CARBON DIOXIDE 23.4 mmol/L (21-32); CHLORIDE 109 mmol/L (98-107); COR CA(FOR HYPOALB) 10.3 mg/dL (8.5-10.1); CREATININE 1.26 mg/dL (0.70-1.30); GLUCOSE 106 mg/dL (65-99); POTASSIUM 3.8 mmol/L (3.5-5.1); SODIUM 143 mmol/L (136-145); TOTAL PROTEIN 6.5 g/dL (6.4-8.2); eGFR NON BLACK RACES 59 (>60)
[2024-04-29] MEDS ORDERED: DAPAGLIFLOZIN PROPANEDIOL 10 MG PO SCH (09:00)
[2024-04-29] MEDS ORDERED: SYNTHROID 150 mcg TAB PO SCH (09:00)
[2024-04-29] MEDS ORDERED: CONSULT PHARMACY - POTASSIUM & MAGNESIUM XX SCH (09:00)
[2024-04-29] MEDS: [UNRECOGNIZED DRUG - OTHER] IV ONE (10:26)
[2024-04-29] MEDS: MAGNESIUM SULFATE IV ONE (10:26)
[2024-04-29] MEDS: POTASSIUM CHLORIDE IV ONE (10:26)
[2024-04-29] MEDS: CATAPRES-TTS-2 TD SCH (11:54)
[2024-04-29] MEDS ORDERED: ATIVAN TAB 1 MG PO SCH (21:00)
[2024-04-29] MEDS ORDERED: ROSUVASTATIN 20 MG PO SCH (21:00)
[2024-04-30 05:21] LABS: BASOPHILS % (AUTO) 0.5 % (0.2-1.0); EOSINOPHILS # (AUTO) 0.2 x10^3/uL (0.0-0.2); EOSINOPHILS % (AUTO) 2.7 % (0.9-2.9); HEMOGLOBIN 8.9 g/dL (13.5-18.0); LYMPHOCYTES # (AUTO) 1.1 X10^3/uL (1.3-2.9); LYMPHOCYTES % (AUTO) 12.5 % (21.0-51.0); MEAN CORPUSCULAR HEMOGLOBIN 27.9 pg (27.0-34.0); MEAN CORPUSCULAR HGB CONC 33.1 g/dL (33.0-35.0); MEAN CORPUSCULAR VOLUME 84.4 fL (80.0-100.0); MONOCYTES # (AUTO) 0.7 x10^3/uL (0.3-0.8); MONOCYTES % (AUTO) 7.6 % (0.0-13.0); NEUTROPHILS # (AUTO) 6.6 x10^3/uL (2.2-4.8); NEUTROPHILS % (AUTO) 76.7 % (42.0-75.0); PLATELET COUNT 161 X10^3/uL (150.0-450.0); WHITE BLOOD COUNT 8.6 X10^3/uL (3.6-10.0)
[2024-04-30 05:31] LABS: ALANINE AMINOTRANSFERASE 11 Units/L (12-78); ALBUMIN 2.2 g/dL (3.4-5.0); ALKALINE PHOSPHATASE 61 Units/L (46-116); ASPARTATE AMINO TRANSFERASE 11 Units/L (15-37); BLOOD UREA NITROGEN 22 mg/dL (7-18); CALCIUM 8.3 mg/dL (8.5-10.1); CARBON DIOXIDE 22.6 mmol/L (21-32); CHLORIDE 107 mmol/L (98-107); COR CA(FOR HYPOALB) 9.7 mg/dL (8.5-10.1); CREATININE 1.14 mg/dL (0.70-1.30); GLUCOSE 95 mg/dL (65-99); POTASSIUM 3.6 mmol/L (3.5-5.1); SODIUM 140 mmol/L (136-145); TOTAL PROTEIN 5.6 g/dL (6.4-8.2); eGFR NON BLACK RACES > 60 (>60)
[2024-04-30] MEDS ORDERED: K-DUR TAB 20 MEQ PO SCH (07:00)
[2024-04-30] MEDS: K-RIDER 10 MEQ/100 ML WATER 10 MEQ/100 ML BAG IV SCH (07:15)
[2024-04-30] MEDS ORDERED: CONSULT PHARMACY - POTASSIUM & MAGNESIUM XX SCH (09:00)
--- NOTE | 2024-04-30 21:15 | PCM.PROG ---
Progress Note Progress Note for Day of Date of Exam: 04/29/24 Subjective Subjective: The patient is alert and awake this morning. He had no acute events overnight. The nurses report that he still does not want to take his oral medications. We did get back his urine culture the day before yesterday and the sensitivity report showed he grew out of ESBL E. coli. It was sensitive to Invanz, so we will continue that at this time. The patient's blood pressure is improved with the clonidine patch 0.2 mg weekly. Recheck routine labs and blood pressure again tomorrow. Past Medical Family Social History Allergies: Allergies No Known Drug Allergies Allergy (Verified 12/08/23 09:32) Review of Systems ROS: No change since H&P Vital Signs and I&O's Vital Signs: Vital Signs Temperature 98.3 F Temperature 98.2 F Pulse Rate [Left Radial] 78 Pulse Rate [Left Radial] 91 Respiratory Rate 18 Respiratory Rate 18 Blood Pressure [Right Arm] 142/63 Blood Pressure [Left Arm] 118/55 O2 Sat by Pulse Oximetry 92 O2 Sat by Pulse Oximetry 93 Intake and Output: Intake & Output 04/28/24 04/29/24 04/30/24 05/01/24 11:59 11:59 11:59 11:59 Intake Total 2452 / 2452 3852 / 3852 3910 / 3910 2001 Output Total 2700 / 2700 1450 / 1450 2900 / 2900 450 / 450 Balance -248 / -248 2402 / 2402 1010 / 1010 1552 / 1552 Physical Exam Oriented: Other Eyes: Normal Ear: Normal Nose: Normal Throat: Normal Respiratory: Normal Cardiovascular: Normal : Normal Auscultation: Bowel Sounds: Normal Tenderness: Normal Skin: Normal Musculoskeletal: Normal Psychiatric: Normal Mood Description: Calm Affect: Normal Speech Pattern: Unclear Laboratory and Diagnostics 04/30/24 04:50 04/30/24 04:50 Labs: 04/26/24 10:20 Blood Blood Culture Gram Stain - Final 04/26/24 10:20 Blood Blood Culture - Preliminary 04/26/24 10:30 Blood Blood Culture - Preliminary 04/26/24 10:25 Urine,Catheterized Urine Culture - Final Escherichia Coli Esbl Laboratory WBC 8.6 X10^3/uL (3.6-10.0) 04/30/24 04:50 RBC 3.20 X10^6/uL (4.7-6.0) L 04/30/24 04:50 Hgb 8.9 g/dL (13.5-18.0) L 04/30/24 04:50 Hct 27.0 % (42.0-54.0) L 04/30/24 04:50 MCV 84.4 fL (80.0-100.0) 04/30/24 04:50 MCH 27.9 pg (27.0-34.0) 04/30/24 04:50 MCHC 33.1 g/dL (33.0-35.0) 04/30/24 04:50 RDW 15.0 % (11.6-16.5) 04/30/24 04:50 Plt Count 161 X10^3/uL (150.0-450.0) 04/30/24 04:50 MPV 10.0 fL (7.4-11.0) 04/30/24 04:50 Neut % (Auto) 76.7 % (42.0-75.0) H 04/30/24 04:50 Lymph % (Auto) 12.5 % (21.0-51.0) L 04/30/24 04:50 [place] % (Auto) 7.6 % (0.0-13.0) 04/30/24 04:50 Eos % (Auto) 2.7 % (0.9-2.9) 04/30/24 04:50 Baso % (Auto) 0.5 % (0.2-1.0) 04/30/24 04:50 Neut # (Auto) 6.6 x10^3/uL (2.2-4.8) H 04/30/24 04:50 Lymph # (Auto) 1.1 X10^3/uL (1.3-2.9) L 04/30/24 04:50 [place] # (Auto) 0.7 x10^3/uL (0.3-0.8) 04/30/24 04:50 Eos # (Auto) 0.2 x10^3/uL (0.0-0.2) 04/30/24 04:50 Baso # (Auto) 0.0 X10^3/uL (0.0-0.1) 04/30/24 04:50 Absolute Nucleated RBC 0.3 /100WBC 04/30/24 04:50 Sodium 140 mmol/L (136-145) 04/30/24 04:50 Corrected Sodium TNP 04/30/24 04:50 Potassium 3.6 mmol/L (3.5-5.1) 04/30/24 04:50 Chloride 107 mmol/L (98-107) 04/30/24 04:50 Carbon Dioxide 22.6 mmol/L (21-32) 04/30/24 04:50 BUN 22 mg/dL (7-18) H 04/30/24 04:50 Creatinine 1.14 mg/dL (0.70-1.30) 04/30/24 04:50 Est GFR (MDRD) Af Amer > 60 (>60) 04/30/24 04:50 Est GFR (MDRD) Non-Af > 60 (>60) 04/30/24 04:50 Glucose 95 mg/dL (65-99) 04/30/24 04:50 POC Glucose (mg/dL) 107 mg/dL (65-99) H 04/30/24 20:14 Lactic Acid 1.4 mmol/L (0.4-2.0) 04/26/24 10:20 Calcium 8.3 mg/dL (8.5-10.1) L 04/30/24 04:50 Corrected Calcium 9.7 mg/dL (8.5-10.1) 04/30/24 04:50 Magnesium 2.1 mg/dL (2.0-2.9) 04/30/24 04:50 Total Bilirubin 0.60 mg/dL (0.2-1.0) 04/30/24 04:50 AST 11 Units/L (15-37) L 04/30/24 04:50 ALT 11 Units/L (12-78) L 04/30/24 04:50 Alkaline Phosphatase 61 Units/L (46-116) 04/30/24 04:50 Ammonia < 10 umol/L (11-32) L 04/26/24 10:20 Creatine Kinase 79 Units/L (39-308) 04/26/24 10:20 Troponin I High Sens 8.5 ng/L (4.0-60.0) 04/26/24 10:20 B-Natriuretic Peptide 47.4 pg/mL (0-79) 04/26/24 10:20 Total Protein 5.6 g/dL (6.4-8.2) L 04/30/24 04:50 Albumin 2.2 g/dL (3.4-5.0) L 04/30/24 04:50 Globulin 3.4 g/dL (2.5-4.5) 04/30/24 04:50 Albumin/Globulin Ratio 0.6 Ratio (1.1-2.1) L 04/30/24 04:50 Specimen Type Catherized urine 04/26/24 10:25 Urine Color Yellow (YELLOW) 04/26/24 10:25 Urine Appearance Hazy (CLEAR) 04/26/24 10:25 Urine pH 7.0 (5.0 - 8.0) 04/26/24 10:25 Ur Specific [place] 1.015 (1.000-1.030) 04/26/24 10:25 Urine Protein 2+ (NEGATIVE) 04/26/24 10:25 Urine Glucose (UA) 3+ (NEGATIVE) 04/26/24 10:25 Urine Ketones Negative (NEGATIVE) 04/26/24 10:25 Urine Blood 3+ (NEGATIVE) 04/26/24 10:25 Urine Nitrite Negative (NEGATIVE) 04/26/24 10:25 Urine Bilirubin Negative (NEGATIVE) 04/26/24 10:25 Urine Urobilinogen Normal (NORMAL) 04/26/24 10:25 Ur Leukocyte Esterase 3+ (NEGATIVE) 04/26/24 10:25 Urine RBC 0-2 /HPF (0-3) 04/26/24 10:25 Urine WBC Tntc /HPF (0-5) A 04/26/24 10:25 Ur Squamous Epith Cells Negative /HPF (NEGATIVE) 04/26/24 10:25 Triple Phos Crystals Few /HPF (NEGATIVE) 04/26/24 10:25 Amorphous Sediment 2+ /HPF (NEGATIVE) 04/26/24 10:25 Urine Bacteria 4+ /HPF (NEGATIVE) 04/26/24 10:25 Urine Mucus Rare /HPF (NEGATIVE) 04/26/24 10:25 Ur Culture Indicated? Yes/culture set up 04/26/24 10:25 Radiology Reviewed: Yes Plan (1) Urinary tract infection: Status: Acute Qualifiers: Urinary tract infection type: acute cystitis Narrative Support Text: Positive for E. coli ESBL Plan: Discontinue IV Rocephin. Start Invanz 1 g IV every 24 hours. (2) Acute alteration in mental status: Status: Acute Narrative Support Text: Improving. The patient is exhibiting decreased confusion and a return to his normal baseline mental status. Plan: Treat the patient underlying UTI secondary to E. coli and monitor for improvement of mental status. (3) Acute dehydration: Status: Resolved Narrative Support Text: The patient's dehydration has resolved. BUN is 22 and creatinine is stable at 1.14 today. Plan: IV hydration. (4) TATA (acute kidney injury): Status: Resolved Plan: Continue IV hydration.
--- NOTE | 2024-04-30 21:25 | PCM.PROG ---
Progress Note Progress Note for Day of Date of Exam: 04/30/24 Subjective Subjective: The patient is alert and awake this morning. He had no acute events overnight. He is currently eating breakfast and tolerating it well. His nurse reports that his appetite is getting better. His labs look good this morning. His white blood cell count is normal. According to his nurses, he is rehydrated, and his mental status continues to get closer to his normal baseline. We will continue him on IV Invanz. His blood pressure is improved overall since starting the clonidine patch at 0.2 mg weekly. We will continue that at this time. We will try and get him to start taking his oral medications, and if he is doing well again tomorrow morning, we will plan on discharging him back to [facility]. We will have to get him a PICC line to treat him with IV antibiotics for total of 2 weeks because of the ESBL E. coli he grew out that is only sensitive to a few IV antibiotics. I think the patient would be better off for longer treatment versus the regular 10-day denise atment in an attempt to try and sterilize his bladder from his E. coli. I will research current recommendations on treating chronic ESBL E. coli UTIs in residential patients. Past Medical Family Social History Allergies: Allergies No Known Drug Allergies Allergy (Verified 12/08/23 09:32) Review of Systems ROS: No change since H&P Vital Signs and I&O's Vital Signs: Vital Signs Temperature 98.3 F Temperature 98.2 F Pulse Rate [Left Radial] 78 Pulse Rate [Left Radial] 91 Respiratory Rate 18 Respiratory Rate 18 Blood Pressure [Right Arm] 142/63 Blood Pressure [Left Arm] 118/55 O2 Sat by Pulse Oximetry 92 O2 Sat by Pulse Oximetry 93 Intake and Output: Intake & Output 04/28/24 04/29/24 04/30/24 05/01/24 11:59 11:59 11:59 11:59 Intake Total 2452 / 2452 3852 / 3852 3910 / 3910 2001 Output Total 2700 / 2700 1450 / 1450 2900 / 2900 450 / 450 Balance -248 / -248 2402 / 2402 1010 / 1010 1552 / 1552 Physical Exam Oriented: Other Eyes: Normal Ear: Normal Nose: Normal Throat: Normal Respiratory: Normal Cardiovascular: Normal : Normal Auscultation: Bowel Sounds: Normal Tenderness: Normal Skin: Normal Musculoskeletal: Normal Psychiatric: Normal Mood Description: Calm Affect: Normal Speech Pattern: Unclear Laboratory and Diagnostics 04/30/24 04:50 04/30/24 04:50 Labs: 04/26/24 10:20 Blood Blood Culture Gram Stain - Final 04/26/24 10:20 Blood Blood Culture - Preliminary 04/26/24 10:30 Blood Blood Culture - Preliminary 04/26/24 10:25 Urine,Catheterized Urine Culture - Final Escherichia Coli Esbl Laboratory WBC 8.6 X10^3/uL (3.6-10.0) 04/30/24 04:50 RBC 3.20 X10^6/uL (4.7-6.0) L 04/30/24 04:50 Hgb 8.9 g/dL (13.5-18.0) L 04/30/24 04:50 Hct 27.0 % (42.0-54.0) L 04/30/24 04:50 MCV 84.4 fL (80.0-100.0) 04/30/24 04:50 MCH 27.9 pg (27.0-34.0) 04/30/24 04:50 MCHC 33.1 g/dL (33.0-35.0) 04/30/24 04:50 RDW 15.0 % (11.6-16.5) 04/30/24 04:50 Plt Count 161 X10^3/uL (150.0-450.0) 04/30/24 04:50 MPV 10.0 fL (7.4-11.0) 04/30/24 04:50 Neut % (Auto) 76.7 % (42.0-75.0) H 04/30/24 04:50 Lymph % (Auto) 12.5 % (21.0-51.0) L 04/30/24 04:50 [place] % (Auto) 7.6 % (0.0-13.0) 04/30/24 04:50 Eos % (Auto) 2.7 % (0.9-2.9) 04/30/24 04:50 Baso % (Auto) 0.5 % (0.2-1.0) 04/30/24 04:50 Neut # (Auto) 6.6 x10^3/uL (2.2-4.8) H 04/30/24 04:50 Lymph # (Auto) 1.1 X10^3/uL (1.3-2.9) L 04/30/24 04:50 [place] # (Auto) 0.7 x10^3/uL (0.3-0.8) 04/30/24 04:50 Eos # (Auto) 0.2 x10^3/uL (0.0-0.2) 04/30/24 04:50 Baso # (Auto) 0.0 X10^3/uL (0.0-0.1) 04/30/24 04:50 Absolute Nucleated RBC 0.3 /100WBC 04/30/24 04:50 Sodium 140 mmol/L (136-145) 04/30/24 04:50 Corrected Sodium TNP 04/30/24 04:50 Potassium 3.6 mmol/L (3.5-5.1) 04/30/24 04:50 Chloride 107 mmol/L (98-107) 04/30/24 04:50 Carbon Dioxide 22.6 mmol/L (21-32) 04/30/24 04:50 BUN 22 mg/dL (7-18) H 04/30/24 04:50 Creatinine 1.14 mg/dL (0.70-1.30) 04/30/24 04:50 Est GFR (MDRD) Af Amer > 60 (>60) 04/30/24 04:50 Est GFR (MDRD) Non-Af > 60 (>60) 04/30/24 04:50 Glucose 95 mg/dL (65-99) 04/30/24 04:50 POC Glucose (mg/dL) 107 mg/dL (65-99) H 04/30/24 20:14 Lactic Acid 1.4 mmol/L (0.4-2.0) 04/26/24 10:20 Calcium 8.3 mg/dL (8.5-10.1) L 04/30/24 04:50 Corrected Calcium 9.7 mg/dL (8.5-10.1) 04/30/24 04:50 Magnesium 2.1 mg/dL (2.0-2.9) 04/30/24 04:50 Total Bilirubin 0.60 mg/dL (0.2-1.0) 04/30/24 04:50 AST 11 Units/L (15-37) L 04/30/24 04:50 ALT 11 Units/L (12-78) L 04/30/24 04:50 Alkaline Phosphatase 61 Units/L (46-116) 04/30/24 04:50 Ammonia < 10 umol/L (11-32) L 04/26/24 10:20 Creatine Kinase 79 Units/L (39-308) 04/26/24 10:20 Troponin I High Sens 8.5 ng/L (4.0-60.0) 04/26/24 10:20 B-Natriuretic Peptide 47.4 pg/mL (0-79) 04/26/24 10:20 Total Protein 5.6 g/dL (6.4-8.2) L 04/30/24 04:50 Albumin 2.2 g/dL (3.4-5.0) L 04/30/24 04:50 Globulin 3.4 g/dL (2.5-4.5) 04/30/24 04:50 Albumin/Globulin Ratio 0.6 Ratio (1.1-2.1) L 04/30/24 04:50 Specimen Type Catherized urine 04/26/24 10:25 Urine Color Yellow (YELLOW) 04/26/24 10:25 Urine Appearance Hazy (CLEAR) 04/26/24 10:25 Urine pH 7.0 (5.0 - 8.0) 04/26/24 10:25 Ur Specific [place] 1.015 (1.000-1.030) 04/26/24 10:25 Urine Protein 2+ (NEGATIVE) 04/26/24 10:25 Urine Glucose (UA) 3+ (NEGATIVE) 04/26/24 10:25 Urine Ketones Negative (NEGATIVE) 04/26/24 10:25 Urine Blood 3+ (NEGATIVE) 04/26/24 10:25 Urine Nitrite Negative (NEGATIVE) 04/26/24 10:25 Urine Bilirubin Negative (NEGATIVE) 04/26/24 10:25 Urine Urobilinogen Normal (NORMAL) 04/26/24 10:25 Ur Leukocyte Esterase 3+ (NEGATIVE) 04/26/24 10:25 Urine RBC 0-2 /HPF (0-3) 04/26/24 10:25 Urine WBC Tntc /HPF (0-5) A 04/26/24 10:25 Ur Squamous Epith Cells Negative /HPF (NEGATIVE) 04/26/24 10:25 Triple Phos Crystals Few /HPF (NEGATIVE) 04/26/24 10:25 Amorphous Sediment 2+ /HPF (NEGATIVE) 04/26/24 10:25 Urine Bacteria 4+ /HPF (NEGATIVE) 04/26/24 10:25 Urine Mucus Rare /HPF (NEGATIVE) 04/26/24 10:25 Ur Culture Indicated? Yes/culture set up 04/26/24 10:25 Plan (1) Urinary tract infection: Status: Acute Qualifiers: Urinary tract infection type: acute cystitis Plan: Discontinue IV Rocephin. Start Invanz 1 g IV every 24 hours. (2) Acute alteration in mental status: Status: Resolved Plan: Treat the patient underlying UTI secondary to E. coli and monitor for improvement of mental status. (3) Acute dehydration: Status: Resolved Plan: IV hydration. (4) TATA (acute kidney injury): Status: Resolved Plan: Continue IV hydration.
[2024-05-01 06:12] LABS: BASOPHILS # (AUTO) 0.1 X10^3/uL (0.0-0.1); BASOPHILS % (AUTO) 0.8 % (0.2-1.0); EOSINOPHILS # (AUTO) 0.4 x10^3/uL (0.0-0.2); EOSINOPHILS % (AUTO) 5.2 % (0.9-2.9); HEMATOCRIT 26.7 % (42.0-54.0); HEMOGLOBIN 8.8 g/dL (13.5-18.0); LYMPHOCYTES # (AUTO) 1.3 X10^3/uL (1.3-2.9); LYMPHOCYTES % (AUTO) 18.3 % (21.0-51.0); MEAN CORPUSCULAR VOLUME 84.7 fL (80.0-100.0); MONOCYTES # (AUTO) 0.7 x10^3/uL (0.3-0.8); MONOCYTES % (AUTO) 10.1 % (0.0-13.0); NEUTROPHILS # (AUTO) 4.6 x10^3/uL (2.2-4.8); NEUTROPHILS % (AUTO) 65.6 % (42.0-75.0); PLATELET COUNT 156 X10^3/uL (150.0-450.0); RED BLOOD COUNT 3.15 X10^6/uL (4.7-6.0)
[2024-05-01 06:25] LABS: ALANINE AMINOTRANSFERASE 9 Units/L (12-78); ALBUMIN 2.2 g/dL (3.4-5.0); ALKALINE PHOSPHATASE 58 Units/L (46-116); ASPARTATE AMINO TRANSFERASE 12 Units/L (15-37); BLOOD UREA NITROGEN 20 mg/dL (7-18); CALCIUM 8.5 mg/dL (8.5-10.1); CARBON DIOXIDE 24.7 mmol/L (21-32); CHLORIDE 110 mmol/L (98-107); COR CA(FOR HYPOALB) 9.9 mg/dL (8.5-10.1); GLUCOSE 78 mg/dL (65-99); POTASSIUM 3.7 mmol/L (3.5-5.1); SODIUM 142 mmol/L (136-145); TOTAL PROTEIN 5.7 g/dL (6.4-8.2); eGFR NON BLACK RACES > 60 (>60)
[2024-05-01] MEDS ORDERED: CONSULT PHARMACY - POTASSIUM & MAGNESIUM XX SCH (07:00)
[2024-05-01] MEDS: K-DUR TAB 20 MEQ PO SCH (09:03)
--- NOTE | 2024-05-01 14:05 | EKG ---
Test Reason : bradycardia Blood Pressure : */* mmHG Vent. Rate : 53 BPM Atrial Rate : 53 BPM P-R Int : 176 ms QRS Dur : 86 ms QT Int : 438 ms P-R-T Axes : 34 -20 -25 degrees QTc Int : 410 ms Sinus bradycardia Cannot rule out Anterior infarct (cited on or before 26-APR-2024) Abnormal ECG When compared with ECG of 26-APR-2024 10:22, Sinus rhythm has replaced Junctional rhythm Vent. rate has decreased BY 34 BPM Confirmed by Lars Ponce MD ([id number]) on 05/01/2024 5:52:42 PM Referred By: Confirmed By: Lars Ponce MD
--- NOTE | 2024-05-02 00:04 | PCM.PROG ---
Progress Note Progress Note for Day of Date of Exam: 05/01/24 Subjective Subjective: The patient is alert and awake this morning. He had no acute events overnight. He is currently getting changes morning. His nurses state that he has been a little more agitated this morning and has been refusing to take his oral medicine. I encouraged him to do so and I ordered a PICC line for the patient today so we could continue him on IV antibiotics as outpatient while he goes back to the [place] [facility]. Later in the day today he developed bradycardia and his heart rate dipped down in the mid 40s. The only medication that I thought he was taking that could cause bradycardia with clonidine. I had the nurse take off his clonidine patch and I see that his blood pressure has come back up in the 50s later on this evening. His blood pressure is currently stable this evening at 139/63 from the 8 to clock PM reading. We will continue his current treatment repeat labs in the morning and plan on discharging him back to [facility] tomorrow morning. Past Medical Family Social History Allergies: Allergies No Known Drug Allergies Allergy (Verified 12/08/23 09:32) Review of Systems ROS: No change since H&P Vital Signs and I&O's Vital Signs: Vital Signs Temperature 97.6 F Temperature 97.2 F Pulse Rate [Left Radial] 52 Pulse Rate [Left Radial] 45 Respiratory Rate 20 Respiratory Rate 19 Blood Pressure [Right Arm] 139/63 Blood Pressure [Right Arm] 1515/69 O2 Sat by Pulse Oximetry 94 O2 Sat by Pulse Oximetry 97 Intake and Output: Intake & Output 04/29/24 04/30/24 05/01/24 05/02/24 11:59 11:59 11:59 11:59 Intake Total 3852 / 3852 3910 / 3910 3659 / 3659 2080 / 2080 Output Total 1450 / 1450 2900 / 2900 1375 / 1375 1000 / 1000 Balance 2402 / 2402 1010 / 1010 2284 / 2284 1080 / 1080 Physical Exam Oriented: Other Eyes: Normal Ear: Normal Nose: Normal Throat: Normal Respiratory: Normal Cardiovascular: Normal : Normal Auscultation: Bowel Sounds: Normal Tenderness: Normal Skin: Normal Musculoskeletal: Normal Psychiatric: Normal Mood Description: Calm Affect: Normal Speech Pattern: Unclear Laboratory and Diagnostics 05/01/24 05:40 05/01/24 05:40 Labs: 04/26/24 10:30 Blood Blood Culture - Final 04/26/24 10:20 Blood Blood Culture Gram Stain - Final 04/26/24 10:20 Blood Blood Culture - Final 04/26/24 10:25 Urine,Catheterized Urine Culture - Final Escherichia Coli Esbl Laboratory WBC 7.0 X10^3/uL (3.6-10.0) 05/01/24 05:40 RBC 3.15 X10^6/uL (4.7-6.0) L 05/01/24 05:40 Hgb 8.8 g/dL (13.5-18.0) L 05/01/24 05:40 Hct 26.7 % (42.0-54.0) L 05/01/24 05:40 MCV 84.7 fL (80.0-100.0) 05/01/24 05:40 MCH 28.0 pg (27.0-34.0) 05/01/24 05:40 MCHC 33.0 g/dL (33.0-35.0) 05/01/24 05:40 RDW 15.0 % (11.6-16.5) 05/01/24 05:40 Plt Count 156 X10^3/uL (150.0-450.0) 05/01/24 05:40 MPV 10.0 fL (7.4-11.0) 05/01/24 05:40 Neut % (Auto) 65.6 % (42.0-75.0) 05/01/24 05:40 Lymph % (Auto) 18.3 % (21.0-51.0) L 05/01/24 05:40 [place] % (Auto) 10.1 % (0.0-13.0) 05/01/24 05:40 Eos % (Auto) 5.2 % (0.9-2.9) H 05/01/24 05:40 Baso % (Auto) 0.8 % (0.2-1.0) 05/01/24 05:40 Neut # (Auto) 4.6 x10^3/uL (2.2-4.8) 05/01/24 05:40 Lymph # (Auto) 1.3 X10^3/uL (1.3-2.9) 05/01/24 05:40 [place] # (Auto) 0.7 x10^3/uL (0.3-0.8) 05/01/24 05:40 Eos # (Auto) 0.4 x10^3/uL (0.0-0.2) H 05/01/24 05:40 Baso # (Auto) 0.1 X10^3/uL (0.0-0.1) 05/01/24 05:40 Absolute Nucleated RBC 0.1 /100WBC 05/01/24 05:40 Sodium 142 mmol/L (136-145) 05/01/24 05:40 Corrected Sodium TNP 05/01/24 05:40 Potassium 3.7 mmol/L (3.5-5.1) 05/01/24 05:40 Chloride 110 mmol/L (98-107) H 05/01/24 05:40 Carbon Dioxide 24.7 mmol/L (21-32) 05/01/24 05:40 BUN 20 mg/dL (7-18) H 05/01/24 05:40 Creatinine 1.20 mg/dL (0.70-1.30) 05/01/24 05:40 Est GFR (MDRD) Af Amer > 60 (>60) 05/01/24 05:40 Est GFR (MDRD) Non-Af > 60 (>60) 05/01/24 05:40 Glucose 78 mg/dL (65-99) 05/01/24 05:40 POC Glucose (mg/dL) 236 mg/dL (65-99) H 05/01/24 20:50 Lactic Acid 1.4 mmol/L (0.4-2.0) 04/26/24 10:20 Calcium 8.5 mg/dL (8.5-10.1) 05/01/24 05:40 Corrected Calcium 9.9 mg/dL (8.5-10.1) 05/01/24 05:40 Magnesium 2.1 mg/dL (2.0-2.9) 04/30/24 04:50 Total Bilirubin 0.60 mg/dL (0.2-1.0) 05/01/24 05:40 AST 12 Units/L (15-37) L 05/01/24 05:40 ALT 9 Units/L (12-78) L 05/01/24 05:40 Alkaline Phosphatase 58 Units/L (46-116) 05/01/24 05:40 Ammonia < 10 umol/L (11-32) L 04/26/24 10:20 Creatine Kinase 79 Units/L (39-308) 04/26/24 10:20 Troponin I High Sens 8.5 ng/L (4.0-60.0) 04/26/24 10:20 B-Natriuretic Peptide 47.4 pg/mL (0-79) 04/26/24 10:20 Total Protein 5.7 g/dL (6.4-8.2) L 05/01/24 05:40 Albumin 2.2 g/dL (3.4-5.0) L 05/01/24 05:40 Globulin 3.5 g/dL (2.5-4.5) 05/01/24 05:40 Albumin/Globulin Ratio 0.6 Ratio (1.1-2.1) L 05/01/24 05:40 Specimen Type Catherized urine 04/26/24 10:25 Urine Color Yellow (YELLOW) 04/26/24 10:25 Urine Appearance Hazy (CLEAR) 04/26/24 10:25 Urine pH 7.0 (5.0 - 8.0) 04/26/24 10:25 Ur Specific Sacul 1.015 (1.000-1.030) 04/26/24 10:25 Urine Protein 2+ (NEGATIVE) 04/26/24 10:25 Urine Glucose (UA) 3+ (NEGATIVE) 04/26/24 10:25 Urine Ketones Negative (NEGATIVE) 04/26/24 10:25 Urine Blood 3+ (NEGATIVE) 04/26/24 10:25 Urine Nitrite Negative (NEGATIVE) 04/26/24 10:25 Urine Bilirubin Negative (NEGATIVE) 04/26/24 10:25 Urine Urobilinogen Normal (NORMAL) 04/26/24 10:25 Ur Leukocyte Esterase 3+ (NEGATIVE) 04/26/24 10:25 Urine RBC 0-2 /HPF (0-3) 04/26/24 10:25 Urine WBC Tntc /HPF (0-5) A 04/26/24 10:25 Ur Squamous Epith Cells Negative /HPF (NEGATIVE) 04/26/24 10:25 Triple Phos Crystals Few /HPF (NEGATIVE) 04/26/24 10:25 Amorphous Sediment 2+ /HPF (NEGATIVE) 04/26/24 10:25 Urine Bacteria 4+ /HPF (NEGATIVE) 04/26/24 10:25 Urine Mucus Rare /HPF (NEGATIVE) 04/26/24 10:25 Ur Culture Indicated? Yes/culture set up 04/26/24 10:25 Plan (1) Bradycardia with 41-50 beats per minute: Status: Acute Plan: Discontinue clonidine patch. (2) Status post peripherally inserted central catheter (PICC) central line placement: Status: Acute Plan: We put in a consult this morning to have nursing anesthesia to place a peripheral central PICC line so we can continue IV Invanz for total of 2 weeks when the patient goes back to [facility] tomorrow morning. (3) Urinary tract infection: Status: Acute Qualifiers: Urinary tract infection type: acute cystitis Narrative Support Text: UTI secondary to ESBL E. coli. Invanz has an CARLA of less than 0.5 Plan: Discontinue IV Rocephin. Start Invanz 1 g IV every 24 hours. (4) Acute alteration in mental status: Status: Resolved Narrative Support Text: Improved after treatment with IV antibiotics/IV hydration. Patient has returned to his normal baseline at this time. Plan: Treat the patient underlying UTI secondary to E. coli and monitor for improvement of mental status. (5) Acute dehydration: Status: Resolved Plan: IV hydration. (6) TATA (acute kidney injury): Status: Resolved Plan: Continue IV hydration.
[2024-05-02 06:07] LABS: EOSINOPHILS # (AUTO) 0.4 x10^3/uL (0.0-0.2); EOSINOPHILS % (AUTO) 9.6 % (0.9-2.9); HEMATOCRIT 26.1 % (42.0-54.0); HEMOGLOBIN 8.7 g/dL (13.5-18.0); LYMPHOCYTES # (AUTO) 0.8 X10^3/uL (1.3-2.9); LYMPHOCYTES % (AUTO) 22.8 % (21.0-51.0); MEAN CORPUSCULAR HEMOGLOBIN 27.9 pg (27.0-34.0); MEAN CORPUSCULAR HGB CONC 33.1 g/dL (33.0-35.0); MEAN CORPUSCULAR VOLUME 84.5 fL (80.0-100.0); MEAN PLATELET VOLUME 9.8 fL (7.4-11.0); MONOCYTES # (AUTO) 0.4 x10^3/uL (0.3-0.8); MONOCYTES % (AUTO) 11.3 % (0.0-13.0); NEUTROPHILS % (AUTO) 55.3 % (42.0-75.0); PLATELET COUNT 140 X10^3/uL (150.0-450.0); RED CELL DISTRIBUTION WIDTH 14.8 % (11.6-16.5); WHITE BLOOD COUNT 3.7 X10^3/uL (3.6-10.0)
[2024-05-02 06:12] LABS: ALANINE AMINOTRANSFERASE 17 Units/L (12-78); ALKALINE PHOSPHATASE 68 Units/L (46-116); ASPARTATE AMINO TRANSFERASE 19 Units/L (15-37); BLOOD UREA NITROGEN 17 mg/dL (7-18); CALCIUM 8.4 mg/dL (8.5-10.1); CARBON DIOXIDE 24.3 mmol/L (21-32); CHLORIDE 113 mmol/L (98-107); COR NA(FOR HYPERGLY) 144 mmol/L (136-145); CREATININE 1.13 mg/dL (0.70-1.30); GLUCOSE 141 mg/dL (65-99); MAGNESIUM 1.6 mg/dL (2.0-2.9); POTASSIUM 3.9 mmol/L (3.5-5.1); SODIUM 143 mmol/L (136-145); TOTAL PROTEIN 5.3 g/dL (6.4-8.2); eGFR NON BLACK RACES > 60 (>60)
[2024-05-02] MEDS ORDERED: CONSULT PHARMACY - POTASSIUM & MAGNESIUM XX SCH (07:00)
[2024-05-02] MEDS: MAG-OX TAB PO SCH (09:20)
[2024-05-02] MEDS ORDERED: VERSED ONE (12:49)
[2024-05-02] MEDS ORDERED: MORPHINE SULFATE INJ 2 MG INJ ONE (12:50)
[2024-05-02] MEDS: VERSED IVP ONE (13:11)
[2024-05-02] MEDS: MORPHINE SULFATE INJ 2 MG INJ IVP ONE (13:15)
[2024-05-02 13:16] VITALS: RESP 20
[2024-05-02 13:23] VITALS: BP 154/80; PULSE 80; TEMP 98.2; O2SAT 97
--- NOTE | 2024-05-02 13:52 | RAD ---
EXAMINATION:CHEST, 1 VIEWHISTORY:central line placement; .COMPARISON STUDY:Chest x-ray 04/26/2024TECHNIQUE:2 frontal views of the chestFINDINGS:Interval placement of a left-sided central venous access catheter with distal catheter along the SVC/right pulmonary hilum. No evidence of a pneumothorax. Subtle prominent interstitial markings in both lungs. Mild cardiac silhouette enlargement. Slight pulmonary vascular congestion. Bones are intact.IMPRESSION:Interval placement of the left-sided central venous access catheter. No pneumothorax.Mild cardiac silhouette enlargement with slight pulmonary vascular congestion. Subtle prominent interstitial markings in both lungs.THIS IS AN ELECTRONICALLY VERIFIED FINAL REPORT05/02/2024 1:49 PM - Electronically signed by Myrna Cortez MD
== END 2024-05-02 14:14 | DRG 690 ==
LOC: ER 09:58 → MED/SURG 09:58
PROVIDERS: ADMIT Family Medicine; ATTEND Internal Medicine
DX: Z16.12 Extended spectrum beta lactamase (ESBL) resistance; I25.10 Atherosclerotic heart disease of native coronary artery without angina pectoris; I10 Essential (primary) hypertension; R94.31 Abnormal electrocardiogram [ECG] [EKG]; E03.8 Other specified hypothyroidism; R00.1 Bradycardia, unspecified; E86.0 Dehydration; Z66 Do not resuscitate; E11.65 Type 2 diabetes mellitus with hyperglycemia; R41.82 Altered mental status, unspecified; N39.0 Urinary tract infection, site not specified; R06.02 Shortness of breath; Z60.8 Other problems related to social environment; E78.2 Mixed hyperlipidemia; K21.9 Gastro-esophageal reflux disease without esophagitis; B96.29 Other Escherichia coli [E. coli] as the cause of diseases classified elsewhere; I87.2 Venous insufficiency (chronic) (peripheral); N17.8 Other acute kidney failure; L89.622 Pressure ulcer of left heel, stage 2